=== PATIENT | female | born 1930 | race Asian ===

== ENCOUNTER 2016-03-14 11:09 | Emergency (ER) | payer OTHER ==
[2016-03-14 11:24] VITALS: BP 99/50; PULSE 81; TEMP 97.8; BMI 21.4
--- NOTE | 2016-03-14 12:30 | PDOC ---
History of Present Illness - General History Source: Patient Exam Limitations: No Limitations - History of Present Illness Initial Comments: 03/14/16 14:33 85 yr female with c/o ulcer to left ankle for 4 days. Pt saw PMD yesterday was given bactroban ointment. Pt here today states swelling to left ankle after falling 3 weeks ago. no fever or chills, pt has DM. <Melina Cabrera - Last Filed: 03/14/16 15:29> - History of Present Illness Initial Comments: 03/14/16 18:13 Malathi Tripathi LAW ENFORCEMENT DIRECTOR did not see this pt. <Malathi Tripathi - Last Filed: 03/14/16 18:13> - General Chief Complaint: Injury Stated Complaint: LT ANKLE INJURY Time Seen by Provider: 03/14/16 12:13 Past History <Melina Cabrera - Last Filed: 03/14/16 15:29> - Past Medical History Diabetes: Yes HTN: Yes Hypercholesterolemia: Yes - Surgical History Appendectomy: Yes - Psycho/Social/Smoking Cessation Hx Suicidal Ideation: No Smoking Status: No Smoking History: Never smoked Have you smoked in the past 12 months: No Number of Cigarettes Smoked Daily: 0 Hx Alcohol Use: No Drug/Substance Use Hx: No Substance Use Type: None Hx Substance Use Treatment: No <Malathi Tripathi - Last Filed: 03/14/16 18:13> - Past Medical History Allergies/Adverse Reactions: Allergies Allergy/AdvReac Type Severity Reaction Status Date / Time No Known Allergies Allergy Verified 03/14/16 11:24 Home Medications: Ambulatory Orders Alendronate Sodium [Fosamax Liquid] 70 mg PO Q7D #0 ml 04/19/12 Amlodipine Besylate [Norvasc -] 10 mg PO DAILY #0 tablet 04/19/12 Calcium Carbonate/Vitamin D3 [Calcium 600-Vit D3 200 Tablet] 1 each PO DAILY #0 tablet 04/19/12 Clopidogrel Bisulfate [Plavix -] 75 mg PO DAILY #0 tablet 04/19/12 Docusate Sodium [Colace -] 200 mg PO HS #0 capsule 04/19/12 Gabapentin [Neurontin -] 100 mg PO TID #0 capsule 04/19/12 Insulin (Novolog 70/30) [Novolog Mix 70/30 Flexpen -] 15 units SQ DAILY@1700 #0 pen 04/19/12 Insulin (Novolog 70/30) [Novolog Mix 70/30 Flexpen -] 45 units SQ DAILY@0700 #0 pen 04/19/12 Insulin (Novolog) [Novolog Flexpen -] 0 units SQ ACHS #0 pen 04/19/12 Losartan Potassium 100 mg PO DAILY #0 tablet 04/19/12 Metoclopramide HCl [Reglan] 10 mg PO AC #0 tablet 04/19/12 Simvastatin [Zocor -] 20 mg PO DAILY #0 tablet 04/19/12 Cephalexin Monohydrate [Keflex -] 250 mg PO Q6H #28 capsule 03/14/16 Sulfamethoxazole/Trimethoprim [Bactrim Ds Tablet] 1 each PO BID #14 tablet 03/14 *Physical Exam - Vital Signs Last Vital Signs Temp Pulse Resp BP Pulse Ox 97.8 F 81 20 99/50 97 03/14/16 11:20 03/14/16 11:20 03/14/16 11:20 03/14/16 11:20 03/14/16 11:20 - Physical Exam General Appearance: Yes: Nourished, Appropriately Dressed HEENT: positive: EOMI, ALVARO, TMs Normal, Pharynx Normal Neck: positive: Supple. negative: Tender Respiratory/Chest: positive: Lungs Clear, Normal Breath Sounds. negative: Chest Tender Cardiovascular: positive: Regular Rhythm, Regular Rate Musculoskeletal: positive: Normal Inspection Extremity: positive: Normal Capillary Refill, Normal Range of Motion, Tender Integumentary: positive: Normal Color, Dry, Warm, Other (left lateral maleoulus with 3cm circular abrasion, wound open no bleeding or drainage, mild surrounding erythema, no streaking up leg, nv intact FROM of the joint ) Neurologic: positive: Fully Oriented, Alert, Normal Mood/Affect, Normal Response , Motor Strength 5/5 <Melina Cabrera - Last Filed: 03/14/16 15:29> - Vital Signs Last Vital Signs Temp Pulse Resp BP Pulse Ox 97.8 F 81 20 99/50 97 03/14/16 11:20 03/14/16 11:20 03/14/16 11:20 03/14/16 11:20 03/14/16 11:20 <Malathi Tripathi - Last Filed: 03/14/16 18:13> Procedures - Laceration/Wound Repair Left Lateral Ankle Wound Length: to 2.5 cm Wound Explored: clean Wound's Depth, Shape: superficial Sterile Dressing Applied: Yes Progress: 03/14/16 15:32 circular wound approximately 3cm in diameter with yellow/white center no oozing or bleeding mild erythema <Melina Cabrera - Last Filed: 03/14/16 15:29> ED Treatment Course - RADIOLOGY Radiology Studies Ordered: Category Date Time Status ANKLE & FOOT-LEFT* [RAD] Stat Radiology 03/14/16 13:28 Completed <Melina Cabrera - Last Filed: 03/14/16 15:29> Medical Decision Making - Medical Decision Making 03/14/16 15:30 cc: fell 3 weeks ago mechanical fall injured left ankle caused abrasion to outside of ankle pt saw PMD yesterday for abrasion was placed on bactroban ointment today the foot and ankle are swollen, no redness, not warm or hot to touch will xray and place on keflex and bactrim follow up with primary care in 3 days follow up with wound care in 1-2 days, pt given the phone number to call to make arrangements, daughter understands and agrees with plan of care. all questions asked and answered before discharge. <Melina Cabrera - Last Filed: 03/14/16 15:29> *DC/Admit/Observation/Transfer <Melina Cabrera - Last Filed: 03/14/16 15:29> <Malathi Tripathi - Last Filed: 03/14/16 18:13> Diagnosis at time of Disposition: Ankle wound Qualifiers: Encounter type: initial encounter Laterality: left Qualified Code(s): S91.002A - Unspecified open wound, left ankle, initial encounter - Discharge Dispostion Disposition: HOME Condition at time of disposition: Good - Prescriptions Prescriptions: Sulfamethoxazole/Trimethoprim [Bactrim Ds Tablet] 1 each PO BID #14 tablet Cephalexin Monohydrate [Keflex -] 250 mg PO Q6H #28 capsule - Referrals Referrals: Rikki Servin [Primary Care Provider] - - Patient Instructions Additional Instructions: take keflex and bactrim as prescribed continue to apply the ointment as prescribed given to you by your doctor yesterday keep ankle and foot elevated keep the wound covered with non stick gauze follow with the wound care center for follow up in 1-2 days call tomorrow to make appointment [phone] follow with your doctor in 1-3 days for follow up return if any worsening symptoms, fever, chills increased redness or pain
== END 2016-03-14 14:43 | disposition home or self-care (01) ==
LOC: JERFT 11:09
DX: S91.002A Unspecified open wound, left ankle, initial encounter (principal); W18.30XA Fall on same level, unspecified, initial encounter; Y93.9 Activity, unspecified; Y92.9 Unspecified place or not applicable; E11.9 Type 2 diabetes mellitus without complications; I10 Essential (primary) hypertension; E78.00 Pure hypercholesterolemia, unspecified
CPT/HCPCS: 73610-TC-LT; 73630-TC-LT; 99281-25

== ENCOUNTER 2016-06-03 07:41 | Emergency (ER) | payer OTHER ==
[2016-06-03 07:46] VITALS: BMI 21.4
--- NOTE | 2016-06-03 08:25 | PDOC ---
History of Present Illness - General Chief Complaint: Pain Stated Complaint: STOMACH PAIN Time Seen by Provider: 06/03/16 07:54 History Source: Family Exam Limitations: Language Barrier - History of Present Illness Travel History: No Initial Comments: 06/03/16 08:56 85 yo F with PMHx of HTN, HLD, IDDM presents with 3 day history of abdominal pain. Her daughter is her historian. Daughter states that for past three days patient has been complaining of progressive worsening LLQ abdominal pain. She describes the pain as 6/10 pressure-like LLQ localized constant pain. Pain is made worse by movement and position with no alleviating factors. She had bowel movement yesterday which was normal in color/constistancy, no blood. No urinary symtoms. Denies history of diverticulitis, diverticulosis, or fmhx of colon ca. Denies fever, CP, CHONG, SOB, palpitations, N/V. Timing/Duration: reports: constant Quality: reports: moderate Abdominal Pain Onset Location: reports: LLQ Activities at Onset: reports: no specific activity Aggravating Factors: improves with: Movement Alleviating Factors: improves with: None Past History - Travel Traveled outside of the country in the last 30 days: No Close contact w/someone who was outside of country & ill: No - Past Medical History Allergies/Adverse Reactions: Allergies Allergy/AdvReac Type Severity Reaction Status Date / Time No Known Allergies Allergy Verified 06/03/16 07:46 Home Medications: Ambulatory Orders Amlodipine Besylate [Norvasc -] 10 mg PO DAILY 06/03/16 Calcium Carbonate/Vitamin D3 [Calcium 600 + Vit D Tablet] 1 each PO DAILY Clopidogrel Bisulfate [Clopidogrel] 75 mg PO DAILY 06/03/16 Famotidine [Pepcid -] 40 mg PO BID #14 tablet 06/03/16 Furosemide [Lasix] 20 mg PO DAILY 06/03/16 Losartan Potassium [Cozaar] 100 mg PO DAILY 06/03/16 Simvastatin [Zocor -] 20 mg PO HS 06/03/16 Diabetes: Yes HTN: Yes Hypercholesterolemia: Yes - Surgical History Appendectomy: Yes - Psycho/Social/Smoking Cessation Hx Anxiety: No Suicidal Ideation: No Smoking Status: No Smoking History: Never smoked Have you smoked in the past 12 months: No Number of Cigarettes Smoked Daily: 0 Hx Alcohol Use: No Drug/Substance Use Hx: No Substance Use Type: None Hx Substance Use Treatment: No Lives with/in: senior home Abd/GI Specific PMHX - Complaint Specific PMHX Colitis: No Diverticulitis: No Gall Bladder Disease: No GERD: No Hepatitis: No Irritable Bowel Synd (IBS): No Pancreatitis: No GI Ulcer Disease: No Review of Systems - Review of Systems Able to Perform ROS?: Yes Is the patient limited Burmese proficient: Yes Constitutional: Yes: Loss of Appetite HEENTM: No: Symptoms Reported Respiratory: No: Symptoms reported Cardiac (ROS): No: Symptoms Reported ABD/GI: Yes: Poor Appetite, Abdominal cramping : No: Symptoms Reported Musculoskeletal: No: Symptoms Reported Integumentary: No: Symptoms Reported Neurological: No: Symptoms reported *Physical Exam - Vital Signs Last Vital Signs Temp Pulse Resp BP Pulse Ox 97.6 F 95 H 20 183/83 97 06/03/16 07:42 06/03/16 07:42 06/03/16 07:42 06/03/16 07:42 06/03/16 07:42 - Physical Exam General Appearance: Yes: Thin HEENT: positive: ALVARO, Normal ENT Inspection Neck: positive: Supple Respiratory/Chest: positive: Lungs Clear, Normal Breath Sounds. negative: Respiratory Distress, Accessory Muscle Use Cardiovascular: positive: Regular Rhythm, Regular Rate Vascular Pulses: Dorsalis-Pedis (R): 2+, Doralis-Pedis (L): 2+ Gastrointestinal/Abdominal: positive: Normal Bowel Sounds, Flat, Soft, Tenderness (LLQ) ED Treatment Course - LABORATORY CBC & Chemistry Diagram: 06/03/16 08:24 06/03/16 08:24 Medical Decision Making - Medical Decision Making 06/03/16 09:15 85 yo F with PMHx of HTN, HLD, IDDM presents with 3 day history of abdominal pain. CT abdomen ordered with contrast. Initial labs sent CBC, CMP, lactic acid , and UA. BP elevated with restart home meds. *DC/Admit/Observation/Transfer Diagnosis at time of Disposition: LLQ abdominal pain - Discharge Dispostion Disposition: HOME Condition at time of disposition: Stable Admit: No - Prescriptions Prescriptions: Famotidine [Pepcid -] 40 mg PO BID #14 tablet - Patient Instructions Additional Instructions: Need to follow up with primary care doctor in next 7 days. Increase activity as tolerated. Low salt diet. Return to ED if symptoms return or worsen. Addendum entered and electronically signed by Jonathan Dunn RES 06/03/16 15: 06: Imaging: * Abdomen and pelvis CT without contrast Impression: No CT evidence of left lower quadrant pathology. In comparison to a previous CT exam of 04/16/2012 interval development of extrahepatic and intrahepatic biliary tract dilatation is noted as well as dilatation of the main pancreatic duct. There is probable development of mild enlargement of the pancreatic head. The gallbladder also currently appears overdistended. Possible interval development of cholelithiasis. There has been development of a small focus of curvilinear gallbladder wall calcification. Bilateral lower lung field chronic mosaic pattern interstitial thickening possibly due to small airway disease. Cardiomegaly. Reported By: Jarvis Rodriguez MD 06/03/16 1129 * US/ABDOMEN US -LIMITED Right upper quadrant abdomen ultrasound Clinical information: evaluate for cholelithiasis, CBD obstruction. No definite gallbladder calculus is seen. A small linear gallbladder wall calcification is noted laterally. A 0.6 cm gallbladder polyp is noted along the posterior wall. The gallbladder is overdistended. The common bile duct is dilated with a 2 cm diameter. No gross intraductal calculus is noted. Transabdominal sonography is moderately sensitive in this regard. The pancreas and right kidney could not be adequately visualized due to obscuring bowel gas. Liver demonstrates no sonographic abnormality. No free intraperitoneal fluid is noted. Impression: The pancreas is obscured due to bowel gas. Probable pancreatic enlargement was noted on recently performed CT. The common bile duct is dilated with a 2 cm diameter. Gallbladder overdistention is noted. A small linear gallbladder wall calcification is seen. There is no definite evidence of cholelithiasis. A 0.6 cm gallbladder polyp is noted. Reported By: Jarvis Rodriguez MD 06/03/16 2067 Plan: * No acute pathology * Will give 14 day course of Pepcid and instructed to follow up with PCP in one week.
[2016-06-03 08:37] LABS: BASOPHIL 0.7 % (0-2.0); EOSINOPHIL 1.2 % (0-4.5); MCH 29.7 pg (25.7-33.7); MCHC 32.4 g/dl (32.0-36.0); MEAN CELL VOLUME 91.6 fl (80-96); MEAN PLT VOLUME 10.5 fl (7.5-11.1); NEUTROPHILS 70.5 % (42.8-82.8); PLATELET COUNT 114 K/MM3 (134-434); RDW 13.8 % (11.6-15.6); WHITE BLOOD COUNT 6.9 K/mm3 (4.0-10.0)
[2016-06-03 09:01] LABS: ALBUMIN 3.6 g/dl (3.4-5.0); ANION GAP 10 (8-16); BILIRUBIN,TOTAL 0.6 mg/dL (0.2-1.0); CALCIUM 8.4 mg/dL (8.5-10.1); CO2 24 mmol/L (21-32); CREATININE 1.5 mg/dL (0.55-1.02); GLUCOSE,RANDOM 226 mg/dL (74-106); SGOT/AST 20 U/L (15-37); SGPT/ALT 25 U/L (12-78); TOT PROT 6.8 g/dl (6.4-8.2)
[2016-06-03 09:02] LABS: ALK PHOS 77 U/L (45-117)
[2016-06-03] MEDS ORDERED: amLODIPine BESYLATE 10 MG TABLET (FP) PO ONE (09:12)
[2016-06-03] MEDS ORDERED: LOSARTAN POTASSIUM 50 MG TABLET (FP) PO ONE (09:13)
[2016-06-03] MEDS ORDERED: CLOPIDOGREL BISULFATE 75 MG TABLET (FP) PO ONE (09:13)
[2016-06-03] MEDS ORDERED: FUROSEMIDE 20 MG TABLET (FP) PO ONE (09:13)
[2016-06-03] MEDS ORDERED: CLOPIDOGREL BISULFATE 75 MG TABLET (FP) PO SCH (09:15)
[2016-06-03] MEDS ORDERED: FUROSEMIDE 20 MG TABLET (FP) PO SCH (09:15)
[2016-06-03] MEDS ORDERED: amLODIPine BESYLATE 10 MG TABLET (FP) PO SCH (09:15)
[2016-06-03] MEDS ORDERED: PATIENT'S OWN MEDICATION (NON-FORMULARY) (Losartan Potassium [Cozaar] 100 MG) PO SCH (09:15)
[2016-06-03] MEDS ORDERED: SODIUM CHLORIDE 1,000 ML IV STA (09:28)
--- NOTE | 2016-06-03 09:30 | PDOC ---
Attending Attestation - Resident Resident Name: Jonathan Dunn - ED Attending Attestation I have performed the following: I have examined & evaluated the patient, The case was reviewed & discussed with the resident, I agree w/resident's findings & plan, Exceptions are as noted - HPI HPI: 06/03/16 09:29 Agree with the resident's HPI as documented in the electronic medical record. - Physicial Exam PE: 06/03/16 09:29 Agree with the resident's physical examination as documented in the electronic medical record. - Medical Decision Making 06/03/16 09:29 85-year-old female with history of hypertension and diabetes presents to the emergency department with left lower quadrant pain 3 days and decrease in by mouth intake. Differential diagnosis includes but is not limited to: Diverticulosis/diverticulitis, UTI, early pyelonephritis, renal colic, colonic mass, MANAGER PROCESS EXCELLENCE pathology, dehydration, electrolyte abnormality, toxic/metabolic derangement. Plan: 1. Labs 2. IV fluids for hydration 3. Pain management 4. Antiemetics 5. CT scan of the abdomen and pelvis to rule out above pathology 6. Observe and reevaluate
[2016-06-03] MEDS ORDERED: FUROSEMIDE 40 MG TABLET (FP) ONE (10:07)
[2016-06-03] MEDS ORDERED: amLODIPine BESYLATE 5 MG TABLET (FP) ONE (10:07)
[2016-06-03] MEDS ORDERED: CLOPIDOGREL BISULFATE 75 MG TABLET (FP) ONE (10:08)
[2016-06-03] MEDS ORDERED: LOSARTAN POTASSIUM 25 MG TABLET ONE (10:08)
[2016-06-03 11:54] LABS: URINE APPEARANCE CLEAR; URINE BILIRUBIN NEGATIVE (NEGATIVE); URINE BLOOD NEGATIVE (NEGATIVE); URINE COLOR STRAW; URINE GLUCOSE (UA) 2+ (NEGATIVE); URINE KETONE 1+ (NEGATIVE); URINE LEUK ESTERASE NEGATIVE (NEGATIVE); URINE NITRITE NEGATIVE (NEGATIVE); URINE UROBILINOGEN NEGATIVE E.U./dl (0.2-1.0)
[2016-06-03 11:55] LABS: URINE PROTEIN 2+ (NEGATIVE)
[2016-06-03 11:57] LABS: URINE HYALINE CAST 1 /lpf; URINE RBC <1 /hpf (0-3); URINE WBC 1 /hpf (3-5)
[2016-06-03 12:24] VITALS: TEMP 98.5
[2016-06-03 14:18] LABS: TROPONIN I < 0.02 ng/ml (0.00-0.05)
[2016-06-03 15:27] VITALS: BP 152/74; PULSE 68
--- NOTE | 2016-06-03 17:15 | EKG ---
Test Reason : Blood Pressure : / mmHG Vent. Rate : 083 BPM Atrial Rate : 083 BPM P-R Int : 142 ms QRS Dur : 090 ms QT Int : 392 ms P-R-T Axes : 060 -13 052 degrees QTc Int : 460 ms NORMAL SINUS RHYTHM POSSIBLE LEFT ATRIAL ENLARGEMENT LEFT VENTRICULAR HYPERTROPHY CANNOT RULE OUT SEPTAL INFARCT , AGE UNDETERMINED ABNORMAL ECG WHEN COMPARED WITH ECG OF 17-APR-2012 00:33, MINIMAL CRITERIA FOR SEPTAL INFARCT ARE NOW PRESENT NONSPECIFIC T WAVE ABNORMALITY HAS REPLACED INVERTED T WAVES IN ANTEROLATERAL LEADS Confirmed by KATHY COY MD ([id number]) on 06/03/2016 5:15:12 PM Referred By: Confirmed By:KATHY COY MD
[2016-06-03] MEDS ORDERED: PATIENT'S OWN MEDICATION (NON-FORMULARY) (Simvastatin 20 MG) PO SCH (22:00)
== END 2016-06-03 15:28 | disposition home or self-care (01) ==
LOC: JER 07:41
DX: R10.32 Left lower quadrant pain (principal); I10 Essential (primary) hypertension; E11.9 Type 2 diabetes mellitus without complications; Z79.84 Long term (current) use of oral hypoglycemic drugs; E78.00 Pure hypercholesterolemia, unspecified
CPT/HCPCS: 36415; 74020-TC; 74176-TC; 76705-TC; 80053; 81003; 81015; 83690; 84484; 85025; 93005; 93010; 99282-25

== ENCOUNTER 2016-06-21 14:41 | Inpatient (IN) | payer OTHER ==
[2016-06-21 14:53] VITALS: BMI 23.4
--- NOTE | 2016-06-21 17:06 | PDOC ---
History of Present Illness - General History Source: Patient, Family (Daughter), Old Records Exam Limitations: No Limitations - History of Present Illness Initial Comments: 06/21/16 17:44 The patient is an 85 year old female, with a significant past medical history of hypertension, hyperlipidemia, diabetes and osteoporosis, who presents to the emergency department sent by her PCP (Dr. Rikki Servin) with weakness for the past 3 days. The patients daughter is at the bedside. She states that the patient was seen by her PCP earlier today and was sent to the ED for further evaluation to rule out pneumonia. The patients daughter states that the patient has had nasal congestion in addition to a productive cough for the past 3 days. The patient additionally reports chest discomfort, particularly when she coughs. The patient denies shortness of breath. The patient denies fever, chills, nausea , vomiting, diarrhea or dysuria. Allergies: None reported. Past Surgical History: Appendectomy. Social History: Non smoker. Denies alcohol or drug use. PCP: Dr. Rikki Servin <Breanna Long - Last Filed: 06/21/16 21:27> <Rony Barajas - Last Filed: 06/21/16 23:05> - General Chief Complaint: Weakness Stated Complaint: SENT BY PCP/WEAKNESS Time Seen by Provider: 06/21/16 16:56 Past History <Breanna Long - Last Filed: 06/21/16 21:27> - Past Medical History Diabetes: Yes HTN: Yes Hypercholesterolemia: Yes - Surgical History Appendectomy: Yes - Psycho/Social/Smoking Cessation Hx Anxiety: No Suicidal Ideation: No Smoking Status: No Smoking History: Never smoked Have you smoked in the past 12 months: No Number of Cigarettes Smoked Daily: 0 Information on smoking cessation initiated: No Hx Alcohol Use: No Drug/Substance Use Hx: No Substance Use Type: None Hx Substance Use Treatment: No <Rony Barajas - Last Filed: 06/21/16 23:05> - Past Medical History Allergies/Adverse Reactions: Allergies Allergy/AdvReac Type Severity Reaction Status Date / Time No Known Allergies Allergy Verified 06/21/16 14:51 Home Medications: Ambulatory Orders Amlodipine Besylate [Norvasc -] 10 mg PO DAILY 06/03/16 Calcium Carbonate/Vitamin D3 [Calcium 600 + Vit D Tablet] 1 each PO DAILY Clopidogrel Bisulfate [Clopidogrel] 75 mg PO DAILY 06/03/16 Famotidine [Pepcid -] 40 mg PO BID #14 tablet 06/03/16 Furosemide [Lasix] 20 mg PO DAILY 06/03/16 Losartan Potassium [Cozaar] 100 mg PO DAILY 06/03/16 Simvastatin [Zocor -] 20 mg PO HS 06/03/16 Alendronate Sodium [Binosto] 70 mg PO ASDIR 06/21/16 Ciprofloxacin [Cipro (Restricted To Id)] 250 mg PO ASDIR 06/21/16 Ferrous Sulfate 325 mg PO DAILY 06/21/16 Gabapentin [Neurontin -] 100 mg PO ASDIR 06/21/16 Guaifenesin/D-Methorphan Hb [Diabetic Tussin Dm Liquid] 0 ml PO ASDIR 06/21/16 Lubiprostone [Amitiza] 8 mcg PO ASDIR 06/21/16 Mometasone Furoate 0.1% Tp Oin [Elocon (Non Formulary)] 0 gm NR ASDIR 06/21/16 Review of Systems - Review of Systems Able to Perform ROS?: Yes Comments:: 06/21/16 17:32 CONSTITUTIONAL: +Weakness. No fever, no chills, no fatigue EYES: No visual changes ENT: +Nasal congestion. No ear pain, no sore throat CARDIOVASCULAR: +Chest discomfort. No palpitations RESPIRATORY: +Cough. No SOB GI: No abdominal pain, no nausea, no vomiting, no constipation, no diarrhea GENITOURINARY: No dysuria, no frequency, no hematuria MUSKULOSKELETAL: No back pain, no joint pain, no myalgias SKIN: No rash NEURO: No headache <GoodhueBreanna vale - Last Filed: 06/21/16 21:27> *Physical Exam - Vital Signs Last Vital Signs Temp Pulse Resp BP Pulse Ox 98.2 F 87 16 143/53 94 L 06/21/16 14:51 06/21/16 14:51 06/21/16 14:51 06/21/16 14:51 06/21/16 14:51 - Physical Exam Comments: 06/21/16 17:31 CONSTITUTIONAL: Awake, alert, frail appearing; in no apparent distress. HEAD: Normocephalic; atraumatic. EYES: PERRL; EOM intact. ENMT: External appears normal; normal oropharynx. NECK: Supple; non-tender; no cervical lymphadenopathy. CARD: Normal S1, S2; no murmurs, rubs, or gallops. RESP: Normal chest excursion with respiration; Crackles at the bases bilaterally , left greater than right. ABD: Soft, non-distended; non-tender; no palpable organomegaly, no palpable hernias. EXT: Normal ROM in all four extremities; non-tender to palpation; distal pulses intact. SKIN: Warm, dry, no rash. NEURO: No focal neurological deficiencies. Normal speech, normal gait. <Breanna Long - Last Filed: 06/21/16 21:27> - Vital Signs Last Vital Signs Temp Pulse Resp BP Pulse Ox 98.2 F 87 16 143/53 94 L 06/21/16 14:51 06/21/16 14:51 06/21/16 14:51 06/21/16 14:51 06/21/16 14:51 <Rony Barajas - Last Filed: 06/21/16 23:05> Heart Score/ECG Review #1 ECG reviewed & interpreted by me at: 17:58 (Vent Rate: 85 bpm. Normal sinus rhythm. Possible left atrial enlargement. Left axis deviation. Right bundle branch block. Left ventricular hypertrophy. Cannot rule out septal infarct, age undetermined. ) <Breanna Long - Last Filed: 06/21/16 21:27> ED Treatment Course - LABORATORY CBC & Chemistry Diagram: 06/21/16 18:25 06/21/16 18:25 <Breanna Long - Last Filed: 06/21/16 21:27> - LABORATORY CBC & Chemistry Diagram: 06/21/16 18:25 06/21/16 22:10 <Rony Barajas - Last Filed: 06/21/16 23:05> Medical Decision Making - Medical Decision Making 06/21/16 19:54 EXAM: RAD/CHEST X-RAY PORTABLE Reviewed By: Dr. Otis Mullins IMPRESSION: No significant interval change or acute lung disease is present. <Breanna Long - Last Filed: 06/21/16 21:27> - Critical Care Time Total Critical Care Time (minutes): 50 Critical Care Statement: The care of this patient involved high complexity decision making to prevent further life threatening deterioration of the patient 's condition and/or to evalute & treat vital organ system(s) failure or risk of failure. - Medical Decision Making 06/21/16 21:02 Patient is a frail-appearing 85-year-old female with history of diabetes and hypertension who presented with generalized weakness, malaise, and a course productive cough for the past 2-3 days. In the ER, patient is awake and alert, afebrile, with oxygen saturation of 91-93% on room air requiring oxygen supplementation via nasal cannula at 2 L/m. CBC reveals mild leukocytosis with predominance of neutrophils. C CMP reveals elevated blood glucose of 460, sodium bicarbonate of 20 and mildly increased anion gap 15. PH is noted to be 7.3. Patient's symptoms are consistent with mild DKA. Chest x-ray reveals no evidence of infiltrate or effusion. I suspect atypical pneumonia at this time. Blood cultures been obtained. We'll administer Levaquin-500 mg IV. Patient has also received IV fluids and will be started on an insolent drip. Will admit to the ICU further evaluation and treatment. 06/21/16 23:03 Patient reassessed. Patient remains hemodynamically stable, but does require supplemental O2 at 2 L via nasal cannula to maintain oxygen saturation of 98-99% . Patient desaturated to 93% on room air. Repeat CMP reveals resolution of increased anion gap, decreased blood glucose and elevated sodium bicarbonate. At this time, I believe insolent drip can be stopped patient can be admitted to [facility] for further evaluation and treatment. Patient's acidosis appears to have resolved. <Rony Barajas - Last Filed: 06/21/16 23:05> *DC/Admit/Observation/Transfer - Attestations Scribe Attestion: 06/21/16 17:10 Documentation prepared by Breanna Long, acting as er medical technician for Rony Barajas MD. <Breanna Long - Last Filed: 06/21/16 21:27> - Discharge Dispostion Admit: Yes - Attestations Physician Attestion: 06/21/16 21:01 The documentation was prepared by the scribe under my direct supervision. I have reviewed the documentation which correctly represents the findings, medical decision-making and critical action taken by me. <Rony Barajas - Last Filed: 06/21/16 23:05> Diagnosis at time of Disposition: Atypical pneumonia Diabetic ketoacidosis Qualifiers: Diabetes mellitus type: due to underlying condition Diabetes mellitus complication detail: without coma Qualified Code(s): E08.10 - Diabetes mellitus due to underlying condition with ketoacidosis without coma - Discharge Dispostion Condition at time of disposition: Fair - Referrals Referrals: Rikki Servin [Primary Care Provider] -
[2016-06-21] MEDS ORDERED: SODIUM CHLORIDE 0.9% 1000 ML INFUS.BAG IV ONE (18:03)
[2016-06-21 18:57] LABS: BASOPHIL 0.2 % (0-2.0); EOSINOPHIL 0.1 % (0-4.5); MCH 28.8 pg (25.7-33.7); MCHC 31.9 g/dl (32.0-36.0); MEAN CELL VOLUME 90.5 fl (80-96); MEAN PLT VOLUME 11.2 fl (7.5-11.1); NEUTROPHILS 83.4 % (42.8-82.8); PLATELET COUNT 184 K/MM3 (134-434); RDW 13.8 % (11.6-15.6); WHITE BLOOD COUNT 12.5 K/mm3 (4.0-10.0)
[2016-06-21 19:13] LABS: ALBUMIN 2.9 g/dl (3.4-5.0); ANION GAP 15 (8-16); CALCIUM 8.9 mg/dL (8.5-10.1); CO2 20 mmol/L (21-32); CREATININE 1.6 mg/dL (0.55-1.02); SGOT/AST 10 U/L (15-37); SGPT/ALT 20 U/L (12-78)
[2016-06-21 19:18] LABS: ALK PHOS 140 U/L (45-117); BILIRUBIN,TOTAL 0.6 mg/dL (0.2-1.0); TOT PROT 6.8 g/dl (6.4-8.2)
[2016-06-21 19:36] LABS: GLUCOSE,RANDOM 453 mg/dL (74-106); TROPONIN I < 0.02 ng/ml (0.00-0.05)
[2016-06-21] MEDS ORDERED: SODIUM CHLORIDE 500 ML IV STA (19:40)
[2016-06-21] MEDS ORDERED: LEVOFLOXACIN 500 MG TABLET (FP) PO ONE (19:44)
[2016-06-21 20:08] LABS: INR 1.03 (0.82-1.09); PROTHROMBIN TIME (PATIENT) 11.3 SEC (9.98-11.88)
[2016-06-21] MEDS ORDERED: ALBUTEROL SO4 2.5/IPRATROPIUM 0.5 INH SOL 3 ML VIAL.NEB. NEB ONE (20:23)
[2016-06-21] MEDS ORDERED: LEVOFLOXACIN 500 MG TABLET (FP) ONE (20:40)
[2016-06-21] MEDS ORDERED: INSULIN REGULAR HUMAN 100 UNITS/ML *VIAL IVPUSH ONE (20:42)
[2016-06-21 20:43] LABS: VENOUS BLOOD GAS HCO3 19.2 meq/L (19-25); VENOUS PH 7.3 (7.32-7.42)
[2016-06-21] MEDS ORDERED: INSULIN REGULAR HUMAN 100 UNITS/ML *VIAL ONE ×2 (20:47→21:42)
[2016-06-21] MEDS ORDERED: INSULIN REGULAR 100 UNITS in SODIUM CHLORIDE 99 ML IVPB SCH (21:15)
--- NOTE | 2016-06-21 21:32 | PN ---
<Damián Barajas - Last Filed: 06/21/16 21:32> Teaching Attending Note Name of Resident: Kali Gaspar ATTENDING PHYSICIAN STATEMENT I saw and evaluated the patient. I reviewed the resident's note and discussed the case with the resident. I agree with the resident's findings and plan as documented. SUBJECTIVE: OBJECTIVE: ASSESSMENT AND PLAN: <Lennie Goodehel - Last Filed: 06/21/16 23:46> Teaching Attending Note ATTENDING PHYSICIAN STATEMENT I saw and evaluated the patient. I reviewed the resident's note and discussed the case with the resident. I agree with the resident's findings and plan as documented. SUBJECTIVE: The patient is a 85 year old female, with a significant past medical history of HTN, HLD, Diabetes and osteoporosis, who presents with weakness. Patient was evaluated by PCP and was sent in to r/o PNA. Patient also has productive cough and nasal congestion for the past 3 days. Patient denies fever or chills. OBJECTIVE: Last Vital Signs Temp Pulse Resp BP Pulse Ox 98.2 F 87 16 143/53 97 06/21/16 14:51 06/21/16 14:51 06/21/16 14:51 06/21/16 14:51 06/21/16 17:20 GEN: Elderly female resting in bed. NAD. HEENT: NCAT, PERRL CARD: RRR, S1 S2 RESP: CTAB ABD: NT, BWS x4 EXT: - CCE CBCD WBC 12.5 K/mm3 (4.0-10.0) H D 06/21/16 18:25 RBC 3.39 M/mm3 (3.60-5.2) L 06/21/16 18:25 Hgb 9.8 GM/dL (10.7-15.3) L 06/21/16 18:25 Hct 30.7 % (32.4-45.2) L 06/21/16 18:25 MCV 90.5 fl (80-96) 06/21/16 18:25 MCHC 31.9 g/dl (32.0-36.0) L 06/21/16 18:25 RDW 13.8 % (11.6-15.6) 06/21/16 18:25 Plt Count 184 K/MM3 (134-434) D 06/21/16 18:25 MPV 11.2 fl (7.5-11.1) H 06/21/16 18:25 CMP Sodium 131 mmol/L (136-145) L 06/21/16 18:25 Potassium 5.2 mmol/L (3.5-5.1) H 06/21/16 18:25 Chloride 96 mmol/L (98-107) L D 06/21/16 18:25 Carbon Dioxide 20 mmol/L (21-32) L 06/21/16 18:25 Anion Gap 15 (8-16) 06/21/16 18:25 BUN 41 mg/dL (7-18) H 06/21/16 18:25 Creatinine 1.6 mg/dL (0.55-1.02) H 06/21/16 18:25 Creat Clearance w eGFR 30.49 (>60) 06/21/16 18:25 Calcium 8.9 mg/dL (8.5-10.1) 06/21/16 18:25 Total Bilirubin 0.6 mg/dL (0.2-1.0) 06/21/16 18:25 AST 10 U/L (15-37) L D 06/21/16 18:25 ALT 20 U/L (12-78) 06/21/16 18:25 Alkaline Phosphatase 140 U/L (45-117) H D 06/21/16 18:25 Total Protein 6.8 g/dl (6.4-8.2) 06/21/16 18:25 Albumin 2.9 g/dl (3.4-5.0) L 06/21/16 18:25 Imaging: CXR Impression: No significant interval change or acute lung disease is present ASSESSMENT AND PLAN: The patient is a 85 year old female, with a significant past medical history of HTN, HLD, Diabetes and osteoporosis, who presents with weakness and is being admitted for atypical PNA and uncontrolled diabetes. 1.) Atypical PNA Check urine antigens Continue with levaquin Follow up blood cultures Flu is negative 2.)Early DKA Resolved Continue with RAISS Monitor fingersticks Repeat BMP Repeat hemoglobin A1C Monitor potassium-- replete as necessary 3.)CKD Baseline creatinine 1.4 Avoid nephrotoxins 4.)Mild Hypoxia Resolved Wells score 0 D dimer elevation most likely due to infection. 5.) HTN Continue home medications 5.) DVT PPx - Heparin SQ 5,000 units Documentation prepared by Jasmin Goode, acting as medical sociologist for Damián Barajas MD.
--- NOTE | 2016-06-21 21:44 | HP ---
CHIEF COMPLAINT: Productive cough PCP: Rikki Servin ([facility]) HISTORY OF PRESENT ILLNESS: Patient is a 85 year old female with PMH of HTN, HLD, DM & osteoporosis who presents to ED from PCP's office for productive cough. Patient's daughter is at bedside and contributes to history. Patient has had a productive cough for a little under 1 week. She also has had nasal congestion & general lethargy during the same time frame. Lethargy has been most notable for the last 3 days. Cough is productive of white sputum. She also notes some mild chest wall tenderness on her left side during heavy cough fits. The pain is reproducible by palpation and only present when coughing or taking a deep breath. Patient takes insulin daily for diabetes but has not taken her insulin today (and daughter is unsure if mother took it yesterday as well). Patient denies fever, chills, dysuria, palpitations, CHONG, visual changes or mental status changes. ER course was notable for: (1) Glucose 450, AG 15, Hyperkalemia 5.3 with mild decrease in Bicarb to 20 (2) CXR (-) for acute changes (3) Levaquin given in ED & Insulin drip started as well Recent Travel: none noted PAST MEDICAL HISTORY: as above PAST SURGICAL HISTORY: appendectomy (unsure about when) Social History: Smoking:NONE NOTED Alcohol:NONE NOTED Drugs:NONE NOTED Family History: NONCONTRIBUTORY Allergies No Known Allergies Allergy (Verified 06/21/16 14:51) HOME MEDICATIONS: Home Medications Medication Instructions Recorded Amlodipine Besylate [Norvasc -] 10 mg PO DAILY 06/03/16 Calcium Carbonate/Vitamin D3 1 each PO DAILY 06/03/16 [Calcium 600 + Vit D Tablet] Clopidogrel Bisulfate [Clopidogrel] 75 mg PO DAILY 06/03/16 Famotidine [Pepcid -] 40 mg PO BID #14 tablet 06/03/16 Furosemide [Lasix] 20 mg PO DAILY 06/03/16 Losartan Potassium [Cozaar] 100 mg PO DAILY 06/03/16 Simvastatin [Zocor -] 20 mg PO HS 06/03/16 Alendronate Sodium [Binosto] 70 mg PO ASDIR 06/21/16 Ciprofloxacin [Cipro (Restricted 250 mg PO ASDIR 06/21/16 To Id)] Ferrous Sulfate 325 mg PO DAILY 06/21/16 Gabapentin [Neurontin -] 100 mg PO ASDIR 06/21/16 Guaifenesin/D-Methorphan Hb 0 ml PO ASDIR 06/21/16 [Diabetic Tussin Dm Liquid] Lubiprostone [Amitiza] 8 mcg PO ASDIR 06/21/16 Mometasone Furoate 0.1% Tp Oin 0 gm NR ASDIR 06/21/16 [Elocon (Non Formulary)] REVIEW OF SYSTEMS CONSTITUTIONAL: (+)malaise, Absent: fever, chills, diaphoresis, generalized weakness, loss of appetite, weight change HEENT: (+)nasal congestion, Absent: rhinorrhea, throat pain, throat swelling, difficulty swallowing, mouth swelling, ear pain, eye pain, visual changes CARDIOVASCULAR: Absent: chest pain, syncope, palpitations, irregular heart rate, lightheadedness , peripheral edema RESPIRATORY: (+)cough, Absent: shortness of breath, dyspnea with exertion, orthopnea, wheezing, stridor , hemoptysis GASTROINTESTINAL: Absent: abdominal pain, abdominal distension, nausea, vomiting, diarrhea, constipation, melena, hematochezia GENITOURINARY: Absent: dysuria, frequency, urgency, hesitancy, hematuria, flank pain, genital pain MUSCULOSKELETAL: Absent: myalgia, arthralgia, joint swelling, back pain, neck pain SKIN: Absent: rash, itching, pallor HEMATOLOGIC/IMMUNOLOGIC: Absent: easy bleeding, easy bruising, lymphadenopathy, frequent infections ENDOCRINE: Absent: unexplained weight gain, unexplained weight loss, heat intolerance, cold intolerance NEUROLOGIC: Absent: headache, focal weakness or paresthesias, dizziness, unsteady gait, seizure, mental status changes, bladder or bowel incontinence PSYCHIATRIC: Absent: anxiety, depression, suicidal or homicidal ideation, hallucinations. PHYSICAL EXAMINATION Vital Signs - 24 hr 06/21/16 06/21/16 14:51 17:20 Temperature 98.2 F Pulse Rate 87 Respiratory 16 Rate Blood Pressure 143/53 O2 Sat by Pulse 94 L 97 Oximetry (%) GENERAL: Awake, alert, and fully oriented, in no acute distress. HEENT: Atraumatic, EOMI, PERRLA, No pharyngeal exudate, no lymphadenopathy noted , moist membranes LUNGS: mild bibasilar crackles noted HEART: Regular rate and rhythm, normal S1 and S2 without murmur, rub or gallop. ABDOMEN: Soft, nontender, not distended, normoactive bowel sounds MUSCULOSKELETAL: Normal range of motion at all joints. No bony deformities or tenderness. No CVA tenderness. UPPER EXTREMITIES: 2+ pulses, warm, well-perfused. No cyanosis. No clubbing. No peripheral edema. LOWER EXTREMITIES: 2+ pulses, warm, well-perfused. No calf tenderness. No peripheral edema. NEUROLOGICAL: Cranial nerves II-XII intact. Normal speech. Normal gait. PSYCHIATRIC: Cooperative. Good eye contact. Appropriate mood and affect. SKIN: Warm, dry, normal turgor, no rashes or lesions noted, normal capillary refill. Laboratory Results - last 24 hr 06/21/16 06/21/16 06/21/16 18:25 18:25 18:25 WBC 12.5 H D RBC 3.39 L Hgb 9.8 L Hct 30.7 L MCV 90.5 MCHC 31.9 L RDW 13.8 Plt Count 184 D MPV 11.2 H Neutrophils % 83.4 H Lymphocytes % 10.2 D Monocytes % 6.1 Eosinophils % 0.1 D Basophils % 0.2 INR 1.03 D-Dimer VBG pH POC VBG pCO2 POC VBG pO2 Mixed VBG HCO3 Sodium 131 L Potassium 5.2 H Chloride 96 L D Carbon Dioxide 20 L Anion Gap 15 BUN 41 H Creatinine 1.6 H Creat Clearance w eGFR 30.49 Random Glucose 453 H* D Calcium 8.9 Total Bilirubin 0.6 AST 10 L D ALT 20 Alkaline Phosphatase 140 H D Creatine Kinase 42 Troponin I < 0.02 Total Protein 6.8 Albumin 2.9 L Acetone, Qual 06/21/16 06/21/16 06/21/16 18:25 20:11 20:40 WBC RBC Hgb Hct MCV MCHC RDW Plt Count MPV Neutrophils % Lymphocytes % Monocytes % Eosinophils % Basophils % INR D-Dimer 597 H VBG pH 7.30 L POC VBG pCO2 40.3 POC VBG pO2 33.7 Mixed VBG HCO3 19.2 Sodium Potassium Chloride Carbon Dioxide Anion Gap BUN Creatinine Creat Clearance w eGFR Random Glucose Calcium Total Bilirubin AST ALT Alkaline Phosphatase Creatine Kinase Troponin I Total Protein Albumin Acetone, Qual Positive small 1+ H ASSESSMENT/PLAN: 85 year old female with PMH of HTN, HLD, DM & osteoporosis who presents to ED from PCP's office for productive cough. #Atypical Pneumonia -Levaquin started in ED -CXR reviewed, f/u in AM -Cultures sent & pending -urine antigens for pneumonia pending -saturating well on 2liter NC, Keep O2 sat >91% -Donya QIDR #Mild, developing DKA, no Anion gap -Insulin given in ED, no anion gap, normal bicarb afterwards -will start on sliding sale insulin coverage -IVF NS@60cc/hr -Potassium 5.2, will f/u with serial BMP and supplement as needed -ABG in AM -start diabetic diet in AM (if FS too low, can consider D5-NS) #Acute on chronic kidney disease -creatinine 1.6 initially, down to 1.3 after 500cc fluid resuscitation -dehydration is likely etiology (baseline is 1.3-1.5) -continue to trend -avoid nephrotoxic meds #HTN -continue home meds:Norvasc 10 mg PO DAILY, Lipitor 10 mg PO HS, Plavix 75 mg PO DAILY, Lasix 20 mg PO DAILY, Cozaar 100 mg PO DAILY Prophylaxis/FEN -Heparin 5000 BID -Zantac -NPO for now, diabetic diet in AM -Monitor electolytes -IVF hydration as above Visit type - Emergency Visit Emergency Visit: Yes ED Registration Date: 06/21/16 Care time: The patient presented to the Emergency Department on the above date and was hospitalized for further evaluation of their emergent condition. - New Patient This patient is new to me today: Yes Date on this admission: 06/22/16 - Critical Care Critical Care patient: No
[2016-06-21 22:52] LABS: ALBUMIN 2.5 g/dl (3.4-5.0); BILIRUBIN,TOTAL 0.5 mg/dL (0.2-1.0); CALCIUM 7.8 mg/dL (8.5-10.1); COCKROFT - GAULT 26.197; CREATININE 1.3 mg/dL (0.55-1.02); TOT PROT 5.7 g/dl (6.4-8.2)
[2016-06-21] MEDS ORDERED: SODIUM CHLORIDE 1,000 ML IV SCH (23:15)
[2016-06-22] MEDS: ALBUTEROL SO4 2.5/IPRATROPIUM 0.5 INH SOL 3 ML VIAL.NEB. NEB SCH ×3 (00:13→18:09)
[2016-06-22 00:52] LABS: URINE APPEARANCE CLEAR; URINE BILIRUBIN NEGATIVE (NEGATIVE); URINE COLOR STRAW; URINE GLUCOSE (UA) 3+ (NEGATIVE); URINE KETONE TRACE (NEGATIVE); URINE NITRITE NEGATIVE (NEGATIVE); URINE UROBILINOGEN NEGATIVE E.U./dl (0.2-1.0)
[2016-06-22 00:57] LABS: URINE BLOOD 1+ (NEGATIVE); URINE LEUK ESTERASE TRACE (NEGATIVE); URINE PROTEIN 2+ (NEGATIVE)
[2016-06-22 01:12] LABS: URINE BACTERIA RARE /hpf (NONE SEEN); URINE HYALINE CAST 1 /lpf; URINE MUCUS RARE; URINE RBC 2 /hpf (0-3); URINE WBC 15 /hpf (3-5)
[2016-06-22] MEDS: INSULIN SLIDING SCALE (NOVOLOG) 1 VIAL SQ SCH ×4 (06:37→22:24)
[2016-06-22 07:54] LABS: MCH 29.6 pg (25.7-33.7); MCHC 32.9 g/dl (32.0-36.0); MEAN CELL VOLUME 90.1 fl (80-96); PLATELET COUNT 137 K/MM3 (134-434); RDW 13.8 % (11.6-15.6); WHITE BLOOD COUNT 10.1 K/mm3 (4.0-10.0)
[2016-06-22] MEDS ORDERED: LEVOFLOXACIN 500 MG IVPB 100 ML IVPB ONE (08:00)
[2016-06-22 08:39] LABS: ANION GAP 13 (8-16); CALCIUM 7.9 mg/dL (8.5-10.1); CO2 18 mmol/L (21-32); CREATININE 1.1 mg/dL (0.55-1.02); GLUCOSE,RANDOM 252 mg/dL (74-106); MAGNESIUM 2.1 mg/dL (1.8-2.4); PHOSPHOROUS 2.6 mg/dL (2.5-4.9); TROPONIN I < 0.02 ng/ml (0.00-0.05)
[2016-06-22] MEDS: CLOPIDOGREL BISULFATE 75 MG TABLET (FP) PO SCH (09:45)
[2016-06-22] MEDS: CALCIUM 500MG/VIT-D 200 UNITS COMBO TABLET (FP) PO SCH (09:45)
[2016-06-22] MEDS: amLODIPine BESYLATE 10 MG TABLET (FP) PO SCH (09:45)
[2016-06-22] MEDS: FUROSEMIDE 20 MG TABLET (FP) PO SCH (09:45)
[2016-06-22] MEDS: LOSARTAN POTASSIUM 50 MG TABLET (FP) PO SCH (09:45)
[2016-06-22] MEDS: FERROUS SO4 325 MG TABLET (FP) PO SCH (09:45)
[2016-06-22] MEDS: RANITIDINE HCL 150 MG TABLET (FP) PO SCH (09:45)
[2016-06-22] MEDS: HEPARIN NA (PORCINE) 5,000 UNITS/ML 1ML VIAL SQ SCH ×2 (09:46→22:23)
--- NOTE | 2016-06-22 11:25 | EKG ---
Test Reason : Blood Pressure : / mmHG Vent. Rate : 085 BPM Atrial Rate : 085 BPM P-R Int : 138 ms QRS Dur : 126 ms QT Int : 408 ms P-R-T Axes : 064 -38 012 degrees QTc Int : 485 ms NORMAL SINUS RHYTHM POSSIBLE LEFT ATRIAL ENLARGEMENT LEFT AXIS DEVIATION RIGHT BUNDLE BRANCH BLOCK LEFT VENTRICULAR HYPERTROPHY CANNOT RULE OUT SEPTAL INFARCT (CITED ON OR BEFORE 03-JUN-2016) ABNORMAL ECG Confirmed by MARIELLE ALEXANDER, SONIA ([id number]) on 06/22/2016 11:25:18 AM Referred By: Confirmed By:SONIA PALOMARES MD
[2016-06-22] MEDS ORDERED: INSULIN (NOVOLOG) ASPART 100 UNITS/ML 10ML VIAL ONE ×2 (11:27→17:48)
[2016-06-22] MEDS ORDERED: INFLUENZA VACCINE 45 MCG/0.5 ML (MDV 16-17) IM ONE (13:00)
--- NOTE | 2016-06-22 15:59 | PN ---
Physical Exam: SUBJECTIVE: Patient seen and examined, still with cough productive of white sputum, afebrile. OBJECTIVE: Vital Signs Period Temp Pulse Resp BP Sys/Luo Pulse Ox Last 24 Hr 97.3 F-98.2 F 85-97 16-22 138-169/52-73 94-97 GENERAL: The patient is a belarusian speaking female, awake, alert, and fully oriented, in no acute distress. HEAD: Normal with no signs of trauma. EYES: PERRL, extraocular movements intact, sclera anicteric, conjunctiva clear. No ptosis. ENT: Ears normal, nares patent, oropharynx clear without exudates, moist mucous membranes. NECK: Trachea midline, full range of motion, supple. LUNGS: decreased breath sounds; bilateral crackles HEART: Regular rate and rhythm, S1, S2 without murmur, rub or gallop. ABDOMEN: Soft, nontender, nondistended, normoactive bowel sounds, no guarding, no rebound, no hepatosplenomegaly, no masses. EXTREMITIES: 2+ pulses, warm, well-perfused, no edema. NEUROLOGICAL: Cranial nerves II through XII grossly intact. Normal speech, gait not observed. PSYCH: Normal mood, normal affect. SKIN: Warm, dry, normal turgor, no rashes or lesions noted Laboratory Results - last 24 hr 06/22/16 06/22/16 06/22/16 00:28 06:15 06:15 WBC 10.1 H RBC 3.01 L Hgb 8.9 L Hct 27.1 L MCV 90.1 MCHC 32.9 RDW 13.8 Plt Count 137 D MPV 11.0 Sodium 139 Potassium 4.6 Chloride 108 H Carbon Dioxide 18 L Anion Gap 13 BUN 32 H Creatinine 1.1 H POC Glucometer Random Glucose 252 H Calcium 7.9 L Phosphorus 2.6 D Magnesium 2.1 Troponin I < 0.02 Urine Color Straw Urine Appearance Clear Urine pH 5.0 Ur Specific [place] 1.014 Urine Protein 2+ H Urine Glucose (UA) 3+ H Urine Ketones Trace H Urine Blood 1+ H Urine Nitrite Negative Urine Bilirubin Negative Urine Urobilinogen Negative Ur Leukocyte Esterase Trace H Urine RBC 2 Urine WBC 15 Urine Bacteria Rare Hyaline Casts 1 Urine Mucus Rare 06/22/16 06/22/16 06:35 11:22 WBC RBC Hgb Hct MCV MCHC RDW Plt Count MPV Sodium Potassium Chloride Carbon Dioxide Anion Gap BUN Creatinine POC Glucometer 257 276 Random Glucose Calcium Phosphorus Magnesium Troponin I Urine Color Urine Appearance Urine pH Ur Specific [place] Urine Protein Urine Glucose (UA) Urine Ketones Urine Blood Urine Nitrite Urine Bilirubin Urine Urobilinogen Ur Leukocyte Esterase Urine RBC Urine WBC Urine Bacteria Hyaline Casts Urine Mucus Active Medications Generic Name Dose Route Start Last Admin Trade Name [place] PRN Reason Stop Dose Admin Acetaminophen 650 mg 06/21/16 23:06 Tylenol - PO Q4H PRN FEVER OR PAIN Albuterol/Ipratropium 1 amp 06/22/16 00:00 06/22/16 11:19 Duoneb - NEB 1 amp QIDR VERONICA Administration Amlodipine Besylate 10 mg 06/22/16 10:00 06/22/16 09:45 Norvasc - PO 10 mg DAILY VERONICA Administration Atorvastatin Calcium 10 mg 06/22/16 22:00 Lipitor - PO HS VERONICA Calcium Carbonate/Cholecalciferol 1 tab 06/22/16 10:00 06/22/16 09:45 Os-Eduard 500+D - PO 1 tab DAILY VERONICA Administration Clopidogrel Bisulfate 75 mg 06/22/16 10:00 06/22/16 09:45 Plavix - PO 75 mg DAILY VERONICA Administration Ferrous Sulfate 325 mg 06/22/16 10:00 06/22/16 09:45 Feosol - PO 325 mg DAILY VERONICA Administration Furosemide 20 mg 06/22/16 10:00 06/22/16 09:45 Lasix - PO 20 mg DAILY VERONICA Administration Heparin Sodium (Porcine) 5,000 unit 06/22/16 10:00 06/22/16 09:46 Heparin - SQ 5,000 unit BID VERONICA Administration Sodium Chloride 1,000 mls @ 60 mls/hr 06/21/16 23:15 06/21/16 23:21 Normal Saline - IV 06/22/16 15:54 60 mls/hr ASDIR VERONICA Administration Insulin Aspart 1 vial 06/22/16 07:00 06/22/16 11:32 Novolog Vial Sliding Scale - SQ 6 units ACHS [facility] Administration Protocol Losartan Potassium 100 mg 06/22/16 10:00 06/22/16 09:45 Cozaar - PO 100 mg DAILY VERONICA Administration Ranitidine HCl 150 mg 06/22/16 10:00 06/22/16 09:45 Zantac - PO 150 mg DAILY VERONICA Administration ASSESSMENT/PLAN: This is a 85 year old Faroese speaking female; with a PMHx of hypertension, hyperlipidemia, diabetes mellitus, osteoporosis presents with a one week history of cough. #Atypical Pneumonia: -IV Levaquin 750mg qd -CXR -Cultures sent & pending -urine antigens for pneumonia pending -saturating well on 2liter NC, Keep O2 sat >91% -Duonebs QIDR #hyperglycemia -Insulin SS -start diabetic diet in AM (if FS too low, can consider D5-NS) #Acute on chronic kidney disease; most likely dehydration -creatinine 1.6 initially, down to 1.3 after 500cc fluid resuscitation -dehydration is likely etiology (baseline is 1.3-1.5) -avoid nephrotoxic meds #HTN -Norvasc 10 mg PO DAILY -Lipitor 10 mg PO HS -Lasix 20 mg PO DAILY, -Cozaar 100 mg PO DAILY FEN: Fluids:IVF ns Electrolytes: wnl Diet: diabetic VTE prophylaxis: heparin sq Disposition: iv antibiotics Visit type - Emergency Visit Emergency Visit: Yes ED Registration Date: 06/21/16 Care time: The patient presented to the Emergency Department on the above date and was hospitalized for further evaluation of their emergent condition. - New Patient This patient is new to me today: Yes Date on this admission: 06/22/16 - Critical Care Critical Care patient: No
[2016-06-22] MEDS ORDERED: GABAPENTIN 100 MG CAPSULE (FP) PO SCH (16:15)
--- NOTE | 2016-06-22 16:16 | PN ---
Teaching Attending Note Name of Resident: Amita Weber ATTENDING PHYSICIAN STATEMENT I saw and evaluated the patient. I reviewed the resident's note and discussed the case with the resident. I agree with the resident's findings and plan as documented. SUBJECTIVE: Patient complains of productive cough. OBJECTIVE: Vital Signs Period Temp Pulse Resp BP Sys/Luo Pulse Ox Last 24 Hr 97.3 F-98.2 F 85-97 16-22 138-169/52-73 94-97 HEART: S1S2, RRR LUNGS: Bibasilar crackles ABDOMEN: Soft, non-tender, non-distended, normal BS EXTREMITIES: No edema ASSESSMENT AND PLAN: This is an 85-year-old woman with a history of HTN, hyperlipidemia, type 2 DM, osteoporosis who presented to the ER with a productive cough. 1. Pneumonia - WBC improving, afebrile - Continue Levaquin 2. Uncontrolled type 2 DM with possible early DKA - Improved - Continue Novolog sliding scale 3. Acute kidney injury secondary to dehydration - Improving with IV fluid 4. Stage 3 CKD 5. HTN - Continue Cozaar, Norvasc, Lasix 6. Hyperlipidemia - Continue Lipitor Visit type
[2016-06-22] MEDS: guaiFENesin/D-M SUGAR-FREE/ACLHOL-FREE 118 ML BOTTLE PO PRN (18:18)
[2016-06-22] MEDS ORDERED: PT OWN MED DRAWER 7, Y5N ONE (18:21)
[2016-06-22] MEDS ORDERED: INSULIN DETEMIR 100 UNITS/ML MDV SQ SCH (22:00)
[2016-06-22] MEDS: ATORVASTATIN CA 10 MG TABLET (FP) PO SCH (22:23)
[2016-06-23] MEDS: ACETAMINOPHEN 325 MG TABLET (FP) PO PRN (00:15)
[2016-06-23] MEDS ORDERED: PT OWN MED DRAWER 7, Y5N ONE ×2 (02:42→23:14)
[2016-06-23] MEDS: guaiFENesin/D-M SUGAR-FREE/ACLHOL-FREE 118 ML BOTTLE PO PRN ×2 (02:43→23:15)
[2016-06-23] MEDS: ALBUTEROL SO4 2.5/IPRATROPIUM 0.5 INH SOL 3 ML VIAL.NEB. NEB SCH ×4 (06:05→18:12)
[2016-06-23] MEDS: INSULIN SLIDING SCALE (NOVOLOG) 1 VIAL SQ SCH ×4 (06:37→21:31)
[2016-06-23 07:38] LABS: BASOPHIL 0.1 % (0-2.0); EOSINOPHIL 0.1 % (0-4.5); MCH 29.2 pg (25.7-33.7); MCHC 32.3 g/dl (32.0-36.0); MEAN CELL VOLUME 90.2 fl (80-96); MEAN PLT VOLUME 10.7 fl (7.5-11.1); NEUTROPHILS 75.9 % (42.8-82.8); PLATELET COUNT 137 K/MM3 (134-434); RDW 13.5 % (11.6-15.6)
[2016-06-23 08:07] LABS: CALCIUM 8.4 mg/dL (8.5-10.1); COCKROFT - GAULT 22.7035; CREATININE 1.5 mg/dL (0.55-1.02)
[2016-06-23] MEDS: RANITIDINE HCL 150 MG TABLET (FP) PO SCH (11:06)
[2016-06-23] MEDS: HEPARIN NA (PORCINE) 5,000 UNITS/ML 1ML VIAL SQ SCH ×2 (11:07→21:30)
[2016-06-23] MEDS: FUROSEMIDE 20 MG TABLET (FP) PO SCH (11:07)
[2016-06-23] MEDS: amLODIPine BESYLATE 10 MG TABLET (FP) PO SCH (11:07)
[2016-06-23] MEDS: FERROUS SO4 325 MG TABLET (FP) PO SCH (11:07)
[2016-06-23] MEDS: CALCIUM 500MG/VIT-D 200 UNITS COMBO TABLET (FP) PO SCH (11:07)
[2016-06-23] MEDS: CLOPIDOGREL BISULFATE 75 MG TABLET (FP) PO SCH (11:07)
[2016-06-23] MEDS: LOSARTAN POTASSIUM 50 MG TABLET (FP) PO SCH (11:07)
--- NOTE | 2016-06-23 11:32 | PN ---
Addendum entered and electronically signed by Amita Weber RES 06/23/16 11 :38: #anemia : stable; most likely due to infection and dehydration repeat CXR from today; negative for acute findings Original Note: Physical Exam: SUBJECTIVE: Patient seen and examined still with cough, although improved, c/o of headache overnight. Afebrile. OBJECTIVE: Vital Signs Period Temp Pulse Resp BP Sys/Luo Pulse Ox Last 24 Hr 97.6 F-98.5 F 78-97 16-20 138-149/55-65 97 GENERAL: The patient is awake, alert, and fully oriented, in no acute distress. HEAD: Normal with no signs of trauma. EYES: PERRL, extraocular movements intact, sclera anicteric, conjunctiva clear. No ptosis. ENT: Ears normal, nares patent, oropharynx clear without exudates, moist mucous membranes. NECK: Trachea midline, full range of motion, supple. LUNGS: Breath sounds equal, clear to auscultation bilaterally, bilateral crackles, improved, no accessory muscle use. HEART: Regular rate and rhythm, S1, S2 without murmur, rub or gallop. ABDOMEN: Soft, nontender, nondistended, normoactive bowel sounds, no guarding, no rebound, no hepatosplenomegaly, no masses. EXTREMITIES: 2+ pulses, warm, well-perfused, no edema. NEUROLOGICAL: Cranial nerves II through XII grossly intact. Normal speech, gait not observed. PSYCH: Normal mood, normal affect. SKIN: Warm, dry, normal turgor, no rashes or lesions noted Laboratory Results - last 24 hr 06/22/16 06/22/16 06/22/16 11:22 17:38 22:20 WBC RBC Hgb Hct MCV MCHC RDW Plt Count MPV Neutrophils % Lymphocytes % Monocytes % Eosinophils % Basophils % Sodium Potassium Chloride Carbon Dioxide Anion Gap BUN Creatinine POC Glucometer 276 244 281 Random Glucose Calcium 06/23/16 06/23/16 06/23/16 06:35 07:20 07:20 WBC 9.0 RBC 3.07 L Hgb 8.9 L Hct 27.6 L MCV 90.2 MCHC 32.3 RDW 13.5 Plt Count 137 MPV 10.7 Neutrophils % 75.9 Lymphocytes % 17.5 D Monocytes % 6.4 Eosinophils % 0.1 Basophils % 0.1 Sodium 138 Potassium 3.6 D Chloride 106 Carbon Dioxide 20 L Anion Gap 12 BUN 27 H Creatinine 1.5 H D POC Glucometer 307 Random Glucose 313 H* D Calcium 8.4 L Active Medications Generic Name Dose Route Start Last Admin Trade Name Freq PRN Reason Stop Dose Admin Acetaminophen 650 mg 06/21/16 23:06 06/23/16 00:15 Tylenol - PO 650 mg Q4H PRN Administration FEVER OR PAIN Albuterol/Ipratropium 1 amp 06/22/16 00:00 06/23/16 06:05 Duoneb - NEB 1 amp QIDR VERONICA Administration Amlodipine Besylate 10 mg 06/22/16 10:00 06/23/16 11:07 Norvasc - PO 10 mg DAILY VERONICA Administration Atorvastatin Calcium 10 mg 06/22/16 22:00 06/22/16 22:23 Lipitor - PO 10 mg HS VERONICA Administration Calcium Carbonate/Cholecalciferol 1 tab 06/22/16 10:00 06/23/16 11:07 Os-Eduard 500+D - PO 1 tab DAILY VERONICA Administration Clopidogrel Bisulfate 75 mg 06/22/16 10:00 06/23/16 11:07 Plavix - PO 75 mg DAILY VERONICA Administration Ferrous Sulfate 325 mg 06/22/16 10:00 06/23/16 11:07 Feosol - PO 325 mg DAILY VERONICA Administration Furosemide 20 mg 06/22/16 10:00 06/23/16 11:07 Lasix - PO 20 mg DAILY VERONICA Administration Guaifenesin 10 ml 06/22/16 16:01 06/23/16 02:43 Diabetic Tussin Dm - PO 10 ml Q4H PRN Administration COUGH Heparin Sodium (Porcine) 5,000 unit 06/22/16 10:00 06/23/16 11:07 Heparin - SQ 5,000 unit BID VERONICA Administration Insulin Aspart 1 vial 06/22/16 07:00 06/23/16 06:37 Novolog Vial Sliding Scale - SQ 8 units ACHS VERONICA Administration Protocol Insulin Detemir 20 units 06/22/16 22:00 06/22/16 22:24 Levemir Vial SQ 20 units HS VERONICA Administration Losartan Potassium 100 mg 06/22/16 10:00 06/23/16 11:07 Cozaar - PO 100 mg DAILY VERONICA Administration Ranitidine HCl 150 mg 06/22/16 10:00 06/23/16 11:06 Zantac - PO 150 mg DAILY VERONICA Administration ASSESSMENT/PLAN: This is a 85 year old Armenian speaking female; with a PMHx of hypertension, hyperlipidemia, diabetes mellitus, osteoporosis presents with a one week history of cough #Atypical Pneumonia: -IV Levaquin 750mg qd -CXR -Cultures sent & pending -urine antigens for pneumonia negative -Duonebs QIDR #hyperglycemia -Insulin SS -increased levimir to 30U -bgm #Acute on chronic kidney disease; worse today -creatinine increased to from 1.3 to 1.5 today -IVF NS -dehydration is likely etiology (baseline is 1.3-1.5) -avoid nephrotoxic meds #HTN -Norvasc 10 mg PO DAILY -Lipitor 10 mg PO HS -Lasix 20 mg PO DAILY, -Cozaar 100 mg PO DAILY FEN: Fluids:IVF ns Electrolytes: wnl Diet: diabetic VTE prophylaxis: heparin sq Disposition: iv antibiotics Visit type - Emergency Visit Emergency Visit: Yes ED Registration Date: 06/21/16 Care time: The patient presented to the Emergency Department on the above date and was hospitalized for further evaluation of their emergent condition. - New Patient This patient is new to me today: No - Critical Care Critical Care patient: No
[2016-06-23] MEDS: SODIUM CHLORIDE 1,000 ML IV SCH (12:15)
[2016-06-23] MEDS ORDERED: LEVOFLOXACIN 750 MG IVPB 150 ML IVPB SCH (14:45)
--- NOTE | 2016-06-23 15:12 | PN ---
Teaching Attending Note Name of Resident: Amita Weber ATTENDING PHYSICIAN STATEMENT I saw and evaluated the patient. I reviewed the resident's note and discussed the case with the resident. I agree with the resident's findings and plan as documented. SUBJECTIVE: Patient is feeling better. Coughing less. OBJECTIVE: Vital Signs Period Temp Pulse Resp BP Sys/Luo Pulse Ox Last 24 Hr 98 F-98.5 F 78-93 18-20 144-149/59-65 97 HEART: S1S2, RRR LUNGS: Crackles at left base ABDOMEN: Soft, non-tender, non-distended, normal BS EXTREMITIES: No edema ASSESSMENT AND PLAN: This is an 85-year-old woman with a history of HTN, hyperlipidemia, type 2 DM, osteoporosis who presented to the ER with a productive cough. 1. Pneumonia - WBC improved, afebrile - Continue Levaquin (day 3) 2. Uncontrolled type 2 DM with possible early DKA - Improved - Levemir started - Continue Novolog sliding scale 3. Stage 3 CKD - Creatinine stable 4. HTN - Continue Cozaar, Norvasc, Lasix 5. Hyperlipidemia - Continue Lipitor 6. Anemia - Hemoglobin stable - Continue ferrous sulfate
[2016-06-23] MEDS: LEVOFLOXACIN 250 MG IVPB 50 ML IVPB SCH (17:12)
[2016-06-23] MEDS: ATORVASTATIN CA 10 MG TABLET (FP) PO SCH (21:31)
[2016-06-23] MEDS ORDERED: INSULIN DETEMIR 100 UNITS/ML MDV SQ SCH (22:00)
[2016-06-24] MEDS: ALBUTEROL SO4 2.5/IPRATROPIUM 0.5 INH SOL 3 ML VIAL.NEB. NEB SCH ×5 (05:54→23:11)
[2016-06-24] MEDS: INSULIN SLIDING SCALE (NOVOLOG) 1 VIAL SQ SCH ×4 (06:41→22:00)
[2016-06-24 07:59] LABS: BASOPHIL 0.2 % (0-2.0); EOSINOPHIL 0.5 % (0-4.5); MCH 29.4 pg (25.7-33.7); MEAN CELL VOLUME 88.9 fl (80-96); MEAN PLT VOLUME 10.1 fl (7.5-11.1); NEUTROPHILS 77.1 % (42.8-82.8); PLATELET COUNT 132 K/MM3 (134-434); RDW 13.8 % (11.6-15.6); WHITE BLOOD COUNT 8.8 K/mm3 (4.0-10.0)
[2016-06-24 08:30] LABS: COCKROFT - GAULT 30.957; CREATININE 1.1 mg/dL (0.55-1.02)
[2016-06-24] MEDS: guaiFENesin/D-M SUGAR-FREE/ACLHOL-FREE 118 ML BOTTLE PO PRN (08:43)
[2016-06-24] MEDS: amLODIPine BESYLATE 10 MG TABLET (FP) PO SCH (09:58)
[2016-06-24] MEDS: FUROSEMIDE 20 MG TABLET (FP) PO SCH (09:58)
[2016-06-24] MEDS: RANITIDINE HCL 150 MG TABLET (FP) PO SCH (09:58)
[2016-06-24] MEDS: CALCIUM 500MG/VIT-D 200 UNITS COMBO TABLET (FP) PO SCH (10:02)
[2016-06-24] MEDS: CLOPIDOGREL BISULFATE 75 MG TABLET (FP) PO SCH (10:02)
[2016-06-24] MEDS: HEPARIN NA (PORCINE) 5,000 UNITS/ML 1ML VIAL SQ SCH ×2 (10:03→22:01)
[2016-06-24] MEDS: LEVOFLOXACIN 250 MG IVPB 50 ML IVPB SCH (10:04)
[2016-06-24] MEDS: LOSARTAN POTASSIUM 50 MG TABLET (FP) PO SCH (10:04)
[2016-06-24] MEDS: FERROUS SO4 325 MG TABLET (FP) PO SCH (10:04)
[2016-06-24] MEDS: SODIUM CHLORIDE 1,000 ML IV SCH ×2 (10:05→11:53)
[2016-06-24] MEDS ORDERED: POTASSIUM CHLORIDE TABS 20 MEQ TABLET.ER (FP) PO ONE (11:00)
--- NOTE | 2016-06-24 13:43 | PN ---
Physical Exam: SUBJECTIVE: Patient seen and examined. Cough is improving. OBJECTIVE: Vital Signs Period Temp Pulse Resp BP Sys/Luo Pulse Ox Last 24 Hr 98.1 F-98.8 F 96-98 16-20 115-156/54-78 96 GENERAL: The patient is awake, alert, and fully oriented, in no acute distress. LUNGS: Breath sounds equal, clear to auscultation bilaterally, no wheezes, no crackles, no accessory muscle use. HEART: Regular rate and rhythm, S1, S2 without murmur, rub or gallop. ABDOMEN: Soft, nontender, nondistended, normoactive bowel sounds, no guarding, no rebound, no hepatosplenomegaly, no masses. EXTREMITIES: 2+ pulses, warm, well-perfused, no edema. Laboratory Results - last 24 hr 06/23/16 06/23/16 06/24/16 17:17 21:27 06:00 WBC 8.8 RBC 2.86 L Hgb 8.4 L Hct 25.4 L MCV 88.9 MCHC 33.0 RDW 13.8 Plt Count 132 L MPV 10.1 Neutrophils % 77.1 Lymphocytes % 15.1 Monocytes % 7.1 Eosinophils % 0.5 D Basophils % 0.2 Sodium Potassium Chloride Carbon Dioxide Anion Gap BUN Creatinine POC Glucometer 239 299 Random Glucose Calcium 06/24/16 06/24/16 06/24/16 06:00 06:34 11:19 WBC RBC Hgb Hct MCV MCHC RDW Plt Count MPV Neutrophils % Lymphocytes % Monocytes % Eosinophils % Basophils % Sodium 142 Potassium 3.4 L Chloride 111 H Carbon Dioxide 22 Anion Gap 9 BUN 19 H D Creatinine 1.1 H D POC Glucometer 66 167 Random Glucose 80 D Calcium 8.0 L Active Medications Generic Name Dose Route Start Last Admin Trade Name Freq PRN Reason Stop Dose Admin Acetaminophen 650 mg 06/21/16 23:06 06/23/16 00:15 Tylenol - PO 650 mg Q4H PRN Administration FEVER OR PAIN Albuterol/Ipratropium 1 amp 06/22/16 00:00 06/24/16 11:47 Duoneb - NEB 1 amp QIDR VERONICA Administration Amlodipine Besylate 10 mg 06/22/16 10:00 06/24/16 09:58 Norvasc - PO 10 mg DAILY VERONICA Administration Atorvastatin Calcium 10 mg 06/22/16 22:00 06/23/16 21:31 Lipitor - PO 10 mg HS VERONICA Administration Calcium Carbonate/Cholecalciferol 1 tab 06/22/16 10:00 06/24/16 10:02 Os-Eduard 500+D - PO 1 tab DAILY VERONICA Administration Clopidogrel Bisulfate 75 mg 06/22/16 10:00 06/24/16 10:02 Plavix - PO 75 mg DAILY VERONICA Administration Ferrous Sulfate 325 mg 06/22/16 10:00 06/24/16 10:04 Feosol - PO 325 mg DAILY VERONICA Administration Furosemide 20 mg 06/22/16 10:00 06/24/16 09:58 Lasix - PO 20 mg DAILY VERONICA Administration Guaifenesin 10 ml 06/22/16 16:01 06/24/16 08:43 Diabetic Tussin Dm - PO 10 ml Q4H PRN Administration COUGH Heparin Sodium (Porcine) 5,000 unit 06/22/16 10:00 06/24/16 10:03 Heparin - SQ 5,000 unit BID VERONICA Administration Sodium Chloride 1,000 mls @ 83 mls/hr 06/23/16 11:45 06/24/16 11:53 Normal Saline - IV Not Given ASDIR VERONICA Levofloxacin 50 mls @ 50 mls/hr 06/23/16 15:00 06/24/16 10:04 Levaquin 250 Mg Premixed Ivpb - IVPB 50 mls/hr DAILY VERONICA Administration Insulin Aspart 1 vial 06/22/16 07:00 06/24/16 11:53 Novolog Vial Sliding Scale - SQ 2 units ACHS VERONICA Administration Protocol Insulin Detemir 30 units 06/23/16 22:00 06/23/16 21:31 Levemir Vial SQ 30 units HS VERONICA Administration Losartan Potassium 100 mg 06/22/16 10:00 06/24/16 10:04 Cozaar - PO 100 mg DAILY VERONICA Administration Ranitidine HCl 150 mg 06/22/16 10:00 06/24/16 09:58 Zantac - PO 150 mg DAILY VERONICA Administration ASSESSMENT/PLAN: This is an 85-year-old woman with a history of HTN, hyperlipidemia, type 2 DM, osteoporosis who presented to the ER with a productive cough. 1. Pneumonia - WBC improved, afebrile - Continue Levaquin (day 4) 2. Uncontrolled type 2 DM with possible early DKA - Improved - Decrease Levemir - Continue Novolog sliding scale 3. Acute kidney injury - Improved 4. Stage 3 CKD 5. HTN - Continue Cozaar, Norvasc, Lasix 6. Hyperlipidemia - Continue Lipitor 7. Anemia, likely secondary to chronic illness - Continue ferrous sulfate - Check iron studies, TSH, B12, folate 8. Hypokalemia - Replete potassium 9. Continue PT. Expect discharge in AM. Visit type - Emergency Visit Emergency Visit: Yes ED Registration Date: 06/21/16 Care time: The patient presented to the Emergency Department on the above date and was hospitalized for further evaluation of their emergent condition. - New Patient This patient is new to me today: No - Critical Care Critical Care patient: No - Discharge Referral Referred to [facility] Med P.C.: No
[2016-06-24] MEDS: ACETAMINOPHEN 325 MG TABLET (FP) PO PRN (19:42)
[2016-06-24] MEDS ORDERED: INSULIN DETEMIR 100 UNITS/ML MDV SQ SCH (22:00)
[2016-06-24] MEDS: ATORVASTATIN CA 10 MG TABLET (FP) PO SCH (22:01)
[2016-06-25] MEDS: INSULIN SLIDING SCALE (NOVOLOG) 1 VIAL SQ SCH ×2 (06:36→12:33)
[2016-06-25] MEDS ORDERED: DEXTROSE 50%-WATER 50 ML DISP.SYRIN ONE (06:38)
[2016-06-25] MEDS ORDERED: DEXTROSE 50%-WATER 50 ML DISP.SYRIN IVPUSH ONE (06:45)
[2016-06-25] MEDS: ALBUTEROL SO4 2.5/IPRATROPIUM 0.5 INH SOL 3 ML VIAL.NEB. NEB SCH ×2 (06:45→11:30)
[2016-06-25 07:47] LABS: MCH 28.8 pg (25.7-33.7); MCHC 32.3 g/dl (32.0-36.0); MEAN CELL VOLUME 89.3 fl (80-96); MEAN PLT VOLUME 10.2 fl (7.5-11.1); PLATELET COUNT 149 K/MM3 (134-434); RDW 14.2 % (11.6-15.6); WHITE BLOOD COUNT 9.1 K/mm3 (4.0-10.0)
[2016-06-25 07:49] LABS: CALCIUM 8.5 mg/dL (8.5-10.1); COCKROFT - GAULT 30.957; CREATININE 1.1 mg/dL (0.55-1.02)
[2016-06-25 07:56] LABS: FERRITIN 406.754 ng/ml (6.9-282.5); THYROID STIMULATING HORMONE 0.25 uIU/ml (0.358-3.74)
[2016-06-25] MEDS: CALCIUM 500MG/VIT-D 200 UNITS COMBO TABLET (FP) PO SCH (10:23)
[2016-06-25] MEDS: amLODIPine BESYLATE 10 MG TABLET (FP) PO SCH (10:23)
[2016-06-25] MEDS: FERROUS SO4 325 MG TABLET (FP) PO SCH (10:23)
[2016-06-25] MEDS: RANITIDINE HCL 150 MG TABLET (FP) PO SCH (10:23)
[2016-06-25] MEDS: LOSARTAN POTASSIUM 50 MG TABLET (FP) PO SCH (10:23)
[2016-06-25] MEDS: CLOPIDOGREL BISULFATE 75 MG TABLET (FP) PO SCH (10:23)
[2016-06-25] MEDS: HEPARIN NA (PORCINE) 5,000 UNITS/ML 1ML VIAL SQ SCH (10:23)
[2016-06-25] MEDS: FUROSEMIDE 20 MG TABLET (FP) PO SCH (10:23)
[2016-06-25] MEDS: LEVOFLOXACIN 250 MG IVPB 50 ML IVPB SCH (10:23)
[2016-06-25 11:40] VITALS: PULSE 92
[2016-06-25] MEDS: SODIUM CHLORIDE 1,000 ML IV SCH ×2 (11:53→13:50)
[2016-06-25 14:40] VITALS: BP 143/65; TEMP 98.6
--- NOTE | 2016-06-25 16:02 | DS ---
Physical Exam: SUBJECTIVE: Patient seen and examined afebrile, cough decreased, white count wnl , able to walk over 50 feet with physical therapy. OBJECTIVE: Vital Signs Period Temp Pulse Resp BP Sys/Luo Pulse Ox Last 24 Hr 98.1 F-98.6 F 82-96 18-18 123-149/50-65 96-98 PHYSICAL EXAM GENERAL: The patient is awake, alert, and fully oriented, in no acute distress. HEAD: Normal with no signs of trauma. EYES: PERRL, extraocular movements intact, sclera anicteric, conjunctiva clear. ENT: Ears normal, nares patent, oropharynx clear without exudates, moist mucous membranes. NECK: Trachea midline, full range of motion, supple. LUNGS: Breath sounds equal, clear to auscultation bilaterally, no wheezes, minor crackles; RLL , but improved, no accessory muscle use. HEART: Regular rate and rhythm, S1, S2 without murmur, rub or gallop. ABDOMEN: Soft, nontender, nondistended, normoactive bowel sounds, no guarding, no rebound, no hepatosplenomegaly, no masses. EXTREMITIES: 2+ pulses, warm, well-perfused, no edema. NEUROLOGICAL: Cranial nerves II through XII grossly intact. Normal speech, gait not observed. PSYCH: Normal mood, normal affect. SKIN: Warm, dry, normal turgor, no rashes or lesions noted. LABS Laboratory Results - last 24 hr 06/24/16 06/24/16 06/25/16 16:51 21:57 06:00 WBC 9.1 RBC 2.92 L Hgb 8.4 L Hct 26.1 L MCV 89.3 MCHC 32.3 RDW 14.2 Plt Count 149 MPV 10.2 Sodium Potassium Chloride Carbon Dioxide Anion Gap BUN Creatinine POC Glucometer 90 263 Random Glucose Calcium Ferritin Vitamin B12 Serum Folate TSH 06/25/16 06/25/16 06/25/16 06:00 06:21 06:59 WBC RBC Hgb Hct MCV MCHC RDW Plt Count MPV Sodium 144 Potassium 4.0 Chloride 112 H Carbon Dioxide 22 Anion Gap 10 BUN 17 Creatinine 1.1 H POC Glucometer 47 239 Random Glucose 42 L* D Calcium 8.5 Ferritin 406.754 H Vitamin B12 1726 H Serum Folate 20 H TSH 0.25 L 06/25/16 11:42 WBC RBC Hgb Hct MCV MCHC RDW Plt Count MPV Sodium Potassium Chloride Carbon Dioxide Anion Gap BUN Creatinine POC Glucometer 202 Random Glucose Calcium Ferritin Vitamin B12 Serum Folate TSH HOSPITAL COURSE: Date of Admission:06/21/16 Date of Discharge: 06/25/16 This is a 85 year old Serbian speaking femalem with a past medical of hypertension, hyperlipidemia, diabetes mellitus, osteoporosis presents with a one week history of non productive cough, congestion and shortness of breath, admitted for acquired pneumonia. # Atypical Pneumonia: -Levaquin complete 7 day course; finish course as outpatient -CXR negative -Blood Cultures negative -urine antigens for pneumonia negative -Duonebs QIDR -saturating well on 2liter NC, Keep O2 sat >91% #hyperglycemia: controlled -Insulin SS -Levemir #Acute on chronic kidney disease: resolved -dehydration is likely etiology (baseline is 1.3-1.5) -avoid nephrotoxic meds #HTN: controlled -Norvasc 10 mg PO DAILY -Lipitor 10 mg PO HS -Lasix 20 mg PO DAILY, -Cozaar 100 mg PO DAILY FEN: Fluids:IVF ns Electrolytes: wnl Diet: diabetic VTE prophylaxis: heparin sq Disposition: discharged to home; walked over 50 feet with physical therapy Minutes to complete discharge: 35 Discharge Summary Reason For Visit: ATYPICAL PNEUMONIA/DKA Current Active Problems Atypical pneumonia (Acute) DKA (diabetic ketoacidosis) (Acute) Condition: Improved - Instructions Diet, Activity, Other Instructions: Mrs. Ledbetter, you have been treated for pneumonia. Please continue to take antibiotics as directed and follow up with your primary care physician with in one week to assess your improvement. If you experience any worsening of symptoms including worsening shortness of breath or cough, please return tot he emergency room. Referrals: Rikki Servin [Primary Care Provider] - Disposition: HOME - Home Medications Comprehensive Discharge Medication List: Ambulatory Orders Amlodipine Besylate [Norvasc -] 10 mg PO DAILY 06/03/16 Calcium Carbonate/Vitamin D3 [Calcium 600 + Vit D Tablet] 1 each PO DAILY Clopidogrel Bisulfate [Clopidogrel] 75 mg PO DAILY 06/03/16 Famotidine [Pepcid -] 40 mg PO BID #14 tablet 06/03/16 Furosemide [Lasix] 20 mg PO DAILY 06/03/16 Losartan Potassium [Cozaar] 100 mg PO DAILY 06/03/16 Simvastatin [Zocor -] 20 mg PO HS 06/03/16 Alendronate Sodium [Binosto] 70 mg PO ASDIR 06/21/16 Ferrous Sulfate 325 mg PO DAILY 06/21/16 Gabapentin [Neurontin -] 100 mg PO ASDIR 06/21/16 Guaifenesin/D-Methorphan Hb [Diabetic Tussin Dm -] 0 ml PO ASDIR 06/21/16 Insulin (Levemir) [Levemir Flexpen -] 20 units SQ DAILY MDD 20 U night 06/21/16 Insulin (Novolog) [Novolog Flexpen -] 0 units SQ ACHS MDD 7 U lunch time Lubiprostone [Amitiza] 8 mcg PO ASDIR 06/21/16 Mometasone Furoate 0.1% Tp Oin [Elocon (Non Formulary)] 0 gm NR ASDIR 06/21/16 Levofloxacin [Levaquin] 250 mg PO DAILY #3 tablet 06/25/16 This patient is new to me today: No Emergency Visit: Yes ED Registration Date: 06/21/16 Care time: The patient presented to the Emergency Department on the above date and was hospitalized for further evaluation of their emergent condition. Critical Care patient: No - Discharge Referral Referred to [facility] Med P.C.: No
--- NOTE | 2016-06-25 19:58 | PN ---
Teaching Attending Note Name of Resident: Amita Weber ATTENDING PHYSICIAN STATEMENT I saw and evaluated the patient. I reviewed the resident's note and discussed the case with the resident. I agree with the resident's findings and plan as documented. SUBJECTIVE: No complaints. OBJECTIVE: Vital Signs Period Temp Pulse Resp BP Sys/Luo Pulse Ox Last 24 Hr 98.2 F-98.6 F 86-96 18-18 123-149/50-65 96-98 GENERAL: The patient is awake, alert, and fully oriented, in no acute distress. LUNGS: Breath sounds equal, clear to auscultation bilaterally, no wheezes, no crackles, no accessory muscle use. HEART: Regular rate and rhythm, S1, S2 without murmur, rub or gallop. ABDOMEN: Soft, nontender, nondistended, normoactive bowel sounds, no guarding, no rebound, no hepatosplenomegaly, no masses. EXTREMITIES: 2+ pulses, warm, well-perfused, no edema. ASSESSMENT AND PLAN: This is an 85-year-old woman with a history of HTN, hyperlipidemia, type 2 DM, osteoporosis who presented to the ER with a productive cough. 1. Pneumonia - WBC improved, afebrile - Discharge on Levaquin 2. Uncontrolled type 2 DM with possible early DKA - Improved - Decrease Levemir - Continue Novolog sliding scale 3. Acute kidney injury - Improved 4. Stage 3 CKD 5. HTN - Continue Cozaar, Norvasc, Lasix 6. Hyperlipidemia - Continue Lipitor 7. Anemia, likely secondary to chronic illness - Continue ferrous sulfate - Stable 8. Hypokalemia - Improved
[2016-06-26 06:06] LABS: SERUM IRON 16 ug/dL (27-139); TOTAL IRON BINDING CAPACITY 136 ug/dL (250-450); UIBC 120 ug/dL (118-369)
== END 2016-06-25 17:31 | disposition home or self-care (01) | DRG 193 ==
LOC: JER 14:41 → JERBED 23:05 → UNDOADMIN 23:37 → JERBED 23:37 → J8W 06-22 03:53
PROVIDERS: ADMIT Internal Medicine; ATTEND Internal Medicine
DX: J18.9 Pneumonia, unspecified organism (principal); E13.10 Other specified diabetes mellitus with ketoacidosis without coma; N17.9 Acute kidney failure, unspecified; E78.5 Hyperlipidemia, unspecified; M81.0 Age-related osteoporosis without current pathological fracture; R09.02 Hypoxemia; E11.22 Type 2 diabetes mellitus with diabetic chronic kidney disease; I12.9 Hypertensive chronic kidney disease with stage 1 through stage 4 chronic kidney disease, or unspecified chronic kidney disease; N18.9 Chronic kidney disease, unspecified; E86.0 Dehydration; N18.3 Chronic kidney disease, stage 3 (moderate); E87.6 Hypokalemia; D63.8 Anemia in other chronic diseases classified elsewhere
CPT/HCPCS: 36415; 71010-TC; 71020-TC; 80048; 80053; 81003; 81015; 82009; 82550; 82607; 82728; 82746; 82803; 83540; 83550; 83735; 84100; 84443; 84484; 85025; 85027; 85379; 85610; 87040; 87086; 87254; 87804; 87899; 93005; 93010; 94640; 97116-GP; 97161-GP; 99283-25; G0008; J1644; Q2037

== ENCOUNTER 2016-08-01 16:28 | Inpatient (IN) | payer OTHER ==
--- NOTE | 2016-08-01 16:35 | PDOC ---
History of Present Illness - General History Source: Family Exam Limitations: Language Barrier - History of Present Illness Initial Comments: 08/01/16 18:14 This is an 85 yo F with PMH of gastritis (on egd 04/18/12), recently diagnosed pancreatic CA (CT abd here 06/03/16 shows large pancreatic head, distended GB and dilated biliary tree), also had ERCP 07/[address] Whittaker, then xferred to [facility] for biliary drain due to pancreatic CA, who now presents here after 4 episodes of coffee ground emesis over 2 days. over the past few days she has been feeling week, has not been able to ambulate, has had decreased memory, has not been eating or having BM. She had not had f/c. Her R biliady drain bag is full of dark brown liquid. These symptoms have not occured before. At baseline patient live alone, is mentally sharp and ambulates. SHe has an aid. History obtained from daughter. Oncology: Maddie Sr MD GI: tj Whittaker MD Palliative Care: [phone] 08/01/16 18:24 <Teresa Crawford - Last Filed: 08/01/16 18:46> <Rony Barajas - Last Filed: 08/02/16 02:12> - General Chief Complaint: Coffee Ground Emesis Stated Complaint: VOMITING Past History - Travel Traveled outside of the country in the last 30 days: No Close contact w/someone who was outside of country & ill: No - Past Medical History Diabetes: Yes HTN: Yes Hypercholesterolemia: Yes - Surgical History Appendectomy: Yes - Psycho/Social/Smoking Cessation Hx Anxiety: No Suicidal Ideation: No Smoking Status: No Smoking History: Never smoked Have you smoked in the past 12 months: No Number of Cigarettes Smoked Daily: 0 Hx Alcohol Use: No Drug/Substance Use Hx: No Substance Use Type: None Hx Substance Use Treatment: No <Teresa Crawford - Last Filed: 08/01/16 18:46> <Rony Barajas - Last Filed: 08/02/16 02:12> - Past Medical History Allergies/Adverse Reactions: Allergies Allergy/AdvReac Type Severity Reaction Status Date / Time No Known Allergies Allergy Verified 08/01/16 16:42 Home Medications: Ambulatory Orders Amlodipine Besylate [Norvasc -] 10 mg PO DAILY 06/03/16 Calcium Carbonate/Vitamin D3 [Calcium 600 + Vit D Tablet] 1 each PO DAILY Clopidogrel Bisulfate [Clopidogrel] 75 mg PO DAILY 06/03/16 Furosemide [Lasix] 20 mg PO DAILY 06/03/16 Losartan Potassium [Cozaar] 100 mg PO DAILY 06/03/16 Simvastatin [Zocor -] 20 mg PO HS 06/03/16 Insulin (Levemir) [Levemir Flexpen -] 20 units SQ DAILY MDD 20 U night 06/21/16 Insulin (Novolog) [Novolog Flexpen -] 0 units SQ ACHS MDD 7 U lunch time Cyanocobalamin (Vitamin B-12) [Vitamin B12] 2,500 mcg PO DAILY 08/01/16 Multivitamins [Tab-A-Vit -] 1 tab PO DAILY 08/01/16 Review of Systems - Review of Systems Able to Perform ROS?: No (lethargy) Is the patient limited Taiwanese proficient: Yes <Teresa Crawford - Last Filed: 08/01/16 18:46> *Physical Exam - Physical Exam Comments: 08/01/16 18:46 GENERAL: lethargic, alert, oriented to self, CACHECTIC, pale, appears dry HEENT: NORMOCEPHALIC, ATRAUMATIC, PERRLA EOMI, MILD SCLERAL ICTERUS, CONJUNCTIVA CLEAR PULM: bibasilar crackles GI: SOFT, DIFFUSELY MILDLY TENDER, NONDISTENDED, NORMOACTIVE BOWEL SOUNDS, MILD HEPATOMEGALY, NO MASS, r POSTERIOR CHOLECYSTOSTOMY TUBE IN PLACE, NONERYTHEMATOUS ENTRY SITE, CLEAN DRESSING, DARK BROWN LIQUID BAG CONTENTS NEURO: CRANIAL NERVES GROSSLY INTACT SKIN: DECREASED TURGOR EXTREMITIES: NO EDEMA, NO CALF TENDERNESS 08/01/16 18:52 <Teresa Crawford - Last Filed: 08/01/16 18:46> - Vital Signs Last Vital Signs Temp Pulse Resp BP Pulse Ox 98.5 F 100 H 18 121/41 98 08/01/16 23:33 08/01/16 23:33 08/01/16 23:33 08/01/16 23:33 08/01/16 23:33 <Rony Barajas - Last Filed: 08/02/16 02:12> Heart Score/ECG Review #1 ECG reviewed & interpreted by me at: 18:40 (NS, L axis, lv hypertrophy, precordial st inversions, lbb pattern) <Teresa Crawford - Last Filed: 08/01/16 18:46> ED Treatment Course - LABORATORY CBC & Chemistry Diagram: 08/01/16 17:15 08/01/16 16:45 <Teresa Crawford - Last Filed: 08/01/16 18:46> - LABORATORY CBC & Chemistry Diagram: 08/01/16 17:15 08/01/16 17:44 - ADDITIONAL ORDERS Additional order review: Laboratory Results 08/01/16 08/01/16 08/01/16 23:30 19:37 17:44 INR Sodium 140 Potassium 5.1 D Chloride 107 Carbon Dioxide 16 L D Anion Gap 17 H BUN 97 H D Creatinine 9.8 H* D Creat Clearance w eGFR 3.77 Random Glucose 94 D Lactic Acid Calcium 8.6 Magnesium 2.8 H D Total Bilirubin 0.5 AST 26 D ALT 23 D Alkaline Phosphatase 144 H D Total Protein 6.3 L Albumin 2.6 L Urine Color Yellow Urine Appearance Slcloudy Urine pH 5.0 Ur Specific [place] 1.020 Urine Protein 2+ H Urine Glucose (UA) Negative Urine Ketones Negative Urine Blood 1+ H Urine Nitrite Negative Urine Bilirubin Negative Urine Urobilinogen Negative Ur Leukocyte Esterase Negative Urine RBC 3 Urine WBC 6 Ur Epithelial Cells Rare Ur Random Sodium 57 Ur Random Potassium 19.5 Ur Random Chloride 55 Urine Creatinine 97.8 Blood Type Antibody Screen 08/01/16 08/01/16 08/01/16 17:41 17:41 17:15 INR 0.99 Sodium Potassium Chloride Carbon Dioxide Anion Gap BUN Creatinine Creat Clearance w eGFR Random Glucose Lactic Acid 0.7 Calcium Magnesium Total Bilirubin AST ALT Alkaline Phosphatase Total Protein Albumin Urine Color Urine Appearance Urine pH Ur Specific [place] Urine Protein Urine Glucose (UA) Urine Ketones Urine Blood Urine Nitrite Urine Bilirubin Urine Urobilinogen Ur Leukocyte Esterase Urine RBC Urine WBC Ur Epithelial Cells Ur Random Sodium Ur Random Potassium Ur Random Chloride Urine Creatinine Blood Type O NEGATIVE Antibody Screen Negative 08/01/16 16:45 INR Sodium Cancelled Potassium Cancelled Chloride Cancelled Carbon Dioxide Cancelled Anion Gap Cancelled BUN Cancelled Creatinine Cancelled Creat Clearance w eGFR Cancelled Random Glucose Cancelled Lactic Acid Calcium Cancelled Magnesium Cancelled Total Bilirubin Cancelled AST Cancelled ALT Cancelled Alkaline Phosphatase Cancelled Total Protein Cancelled Albumin Cancelled Urine Color Urine Appearance Urine pH Ur Specific [place] Urine Protein Urine Glucose (UA) Urine Ketones Urine Blood Urine Nitrite Urine Bilirubin Urine Urobilinogen Ur Leukocyte Esterase Urine RBC Urine WBC Ur Epithelial Cells Ur Random Sodium Ur Random Potassium Ur Random Chloride Urine Creatinine Blood Type Antibody Screen 08/01/16 17:15 RBC 3.22 L MCV 89.4 MCHC 31.3 L RDW 14.9 MPV 9.1 D Neutrophils % 91.0 H Lymphocytes % 4.6 L D Monocytes % 3.9 Eosinophils % 0.2 Basophils % 0.3 - Medications Given in the ED: ED Medications Discontinued Medications Generic Name Dose Route Start Last Admin Trade Name Freq PRN Reason Stop Dose Admin Pantoprazole Sodium 80 mg/ 100 mls @ 200 mls/hr 08/01/16 17:32 08/01/16 18:01 Sodium Chloride IVPB 08/01/16 18:01 200 mls/hr ONCE ONE Administration Sodium Chloride 250 mls @ 500 mls/hr 08/01/16 17:34 08/01/16 18:00 Normal Saline - IV 08/01/16 18:03 500 mls/hr ASDIR STA Administration Sodium Chloride 250 mls @ 500 mls/hr 08/01/16 18:57 08/01/16 20:00 Normal Saline - IV 08/01/16 19:26 500 mls/hr ASDIR STA Administration Sodium Chloride 250 mls @ 500 mls/hr 08/01/16 19:04 08/01/16 20:00 Normal Saline - IV 08/01/16 19:33 500 mls/hr ASDIR STA Administration Sodium Chloride 250 mls @ 500 mls/hr 08/01/16 21:56 08/01/16 22:12 Normal Saline - IV 08/01/16 22:25 500 mls/hr ASDIR STA Administration <Rony Barajas - Last Filed: 08/02/16 02:12> Medical Decision Making - Medical Decision Making 08/01/16 18:47 labs ordered; 250 cc NS IV bolus given mild leukocytosis 13 with left shift; order blood, urine culture, ua creat 9.8 from baseline of 1.1 =duke hgb 9-given protonix 80 iv, no transfusion needed -ordered hernández and strict I and O; CT abd/pelvis w/o contrast to check for hydronephrosis 08/01/16 18:49 08/01/16 18:51 08/01/16 18:52 <Teresa Crawford - Last Filed: 08/01/16 18:46> *DC/Admit/Observation/Transfer <Teresa Crawford - Last Filed: 08/01/16 18:46> - Discharge Dispostion Admit: Yes <Rony Barajas - Last Filed: 08/02/16 02:12> Diagnosis at time of Disposition: Coffee ground emesis Acute renal failure Qualifiers: Acute renal failure type: unspecified Qualified Code(s): N17.9 - Acute kidney failure, unspecified - Discharge Dispostion Condition at time of disposition: Fair
[2016-08-01 16:43] VITALS: BMI 20.2
[2016-08-01 17:27] LABS: BASOPHIL 0.3 % (0-2.0); EOSINOPHIL 0.2 % (0-4.5); MCHC 31.3 g/dl (32.0-36.0); MEAN CELL VOLUME 89.4 fl (80-96); MEAN PLT VOLUME 9.1 fl (7.5-11.1); PLATELET COUNT 211 K/MM3 (134-434); RDW 14.9 % (11.6-15.6); WHITE BLOOD COUNT 13.3 K/mm3 (4.0-10.0)
[2016-08-01] MEDS ORDERED: PANTOPRAZOLE SODIUM 80 MG in SODIUM CHLORIDE 100 ML IVPB ONE (17:32)
[2016-08-01] MEDS ORDERED: SODIUM CHLORIDE 250 ML IV STA ×4 (17:34→21:56)
[2016-08-01] MEDS ORDERED: PANTOPRAZOLE SODIUM 40 MG VIAL ONE (17:55)
[2016-08-01 18:16] LABS: INR 0.99 (0.82-1.09); PROTHROMBIN TIME (PATIENT) 10.9 SEC (9.98-11.88)
[2016-08-01 18:21] LABS: ALBUMIN 2.6 g/dl (3.4-5.0); CALCIUM 8.6 mg/dL (8.5-10.1); MAGNESIUM 2.8 mg/dL (1.8-2.4)
[2016-08-01 18:28] LABS: BILIRUBIN,TOTAL 0.5 mg/dL (0.2-1.0); COCKROFT - GAULT 2.89; TOT PROT 6.3 g/dl (6.4-8.2)
[2016-08-01 18:47] LABS: CREATININE 9.8 mg/dL (0.55-1.02)
[2016-08-01 19:59] LABS: URINE APPEARANCE SLCLOUDY; URINE BILIRUBIN NEGATIVE (NEGATIVE); URINE COLOR YELLOW; URINE GLUCOSE (UA) NEGATIVE (NEGATIVE); URINE KETONE NEGATIVE (NEGATIVE); URINE LEUK ESTERASE NEGATIVE (NEGATIVE); URINE NITRITE NEGATIVE (NEGATIVE); URINE UROBILINOGEN NEGATIVE E.U./dl (0.2-1.0)
[2016-08-01 20:00] LABS: URINE BLOOD 1+ (NEGATIVE); URINE PROTEIN 2+ (NEGATIVE)
[2016-08-01 20:03] LABS: URINE RBC 3 /hpf (0-3); URINE WBC 6 /hpf (3-5)
--- NOTE | 2016-08-01 21:57 | PN ---
<Damián Barajas - Last Filed: 08/01/16 21:57> Teaching Attending Note Name of Resident: Lorenzo Sanchez ATTENDING PHYSICIAN STATEMENT I saw and evaluated the patient. I reviewed the resident's note and discussed the case with the resident. I agree with the resident's findings and plan as documented. SUBJECTIVE: OBJECTIVE: ASSESSMENT AND PLAN: <Linette Brewer - Last Filed: 08/02/16 00:55> Teaching Attending Note ATTENDING PHYSICIAN STATEMENT I saw and evaluated the patient. I reviewed the resident's note and discussed the case with the resident. I agree with the resident's findings and plan as documented. SUBJECTIVE: 85 yo F with a PMHx HTN, HLD, DM, osteoporosis who presents with coffee ground emesis for two days with associated weakness. Also notes difficulty in ambulation, decreased PO intake and constipation. Recent biliary drain placed due to pancreatic cancer at [facility] in [place], [place] which the bag is full of dark brown liquid. Upon evaluation, patient is nonverbal. OBJECTIVE: Last Vital Signs Temp Pulse Resp BP Pulse Ox 98.5 F 100 H 18 121/41 98 08/01/16 23:33 08/01/16 23:33 08/01/16 23:33 08/01/16 23:33 08/01/16 23:33 GENERAL: AAO x 0, in no acute distress HEENT: Atraumatic. PERRLA, EOMI. Moist mucosa. No JVD LUNGS: No distress, clear to auscultation bilaterally HEART: Regular rate and rhythm, normal S1 and S2, no murmurs, rubs or gallops, peripheral pulses normal and equal bilaterally. ABDOMEN: Soft, nontender, normoactive bowel sounds. No guarding, no rebound. No masses EXTREMITIES: Normal inspection, Normal range of motion, no edema. No clubbing or Cyanosis. NEUROLOGICAL: Cranial nerves II through XII grossly intact. no focal sensorimotor deficits SKIN: Warm, Dry, normal turgor, no rashes or lesions noted. CBCD WBC 13.3 K/mm3 (4.0-10.0) H D 08/01/16 17:15 RBC 3.22 M/mm3 (3.60-5.2) L 08/01/16 17:15 Hgb 9.0 GM/dL (10.7-15.3) L 08/01/16 17:15 Hct 28.8 % (32.4-45.2) L 08/01/16 17:15 MCV 89.4 fl (80-96) 08/01/16 17:15 MCHC 31.3 g/dl (32.0-36.0) L 08/01/16 17:15 RDW 14.9 % (11.6-15.6) 08/01/16 17:15 Plt Count 211 K/MM3 (134-434) D 08/01/16 17:15 MPV 9.1 fl (7.5-11.1) D 08/01/16 17:15 CMP Sodium 140 mmol/L (136-145) 08/01/16 17:44 Potassium 5.1 mmol/L (3.5-5.1) D 08/01/16 17:44 Chloride 107 mmol/L (98-107) 08/01/16 17:44 Carbon Dioxide 16 mmol/L (21-32) L D 08/01/16 17:44 Anion Gap 17 (8-16) H 08/01/16 17:44 BUN 97 mg/dL (7-18) H D 08/01/16 17:44 Creatinine 9.8 mg/dL (0.55-1.02) H* D 08/01/16 17:44 Creat Clearance w eGFR 3.77 (>60) 08/01/16 17:44 Calcium 8.6 mg/dL (8.5-10.1) 08/01/16 17:44 Total Bilirubin 0.5 mg/dL (0.2-1.0) 08/01/16 17:44 AST 26 U/L (15-37) D 08/01/16 17:44 ALT 23 U/L (12-78) D 08/01/16 17:44 Alkaline Phosphatase 144 U/L (45-117) H D 08/01/16 17:44 Total Protein 6.3 g/dl (6.4-8.2) L 08/01/16 17:44 Albumin 2.6 g/dl (3.4-5.0) L 08/01/16 17:44 ASSESSMENT AND PLAN: 85 yo F with a PMHx HTN, HLD, DM, osteoporosis who presents with coffee ground emesis and acute renal failure. 1.) Coffee ground emesis. Upper GI bleed -Protonix GTT -Type and screen -Coags -NPO -STAT GI consult -PRBCs on hold -Too large for IVs BORE 2.) Acute Renal Failure on CKD --Nephrology consulted -Urine lytes -Renal US -Avoid nephrotoxins -Extremely gentle hydration avoid overload -No indication for urgent dialysis at this time 3.) DM -Sliding scale -NPO 4.) HTN -Hold meds DVT ppx -Moderate risk -SCDs due to GI bleed Documentation is prepared by Linette Brewer acting as medical facilities section director for Damián Barajas D.O.
--- NOTE | 2016-08-01 21:57 | PDOC ---
Attending Attestation - Resident Resident Name: Teresa Crawford - ED Attending Attestation I have performed the following: I have examined & evaluated the patient, The case was reviewed & discussed with the resident, I agree w/resident's findings & plan, Exceptions are as noted - HPI HPI: 08/01/16 21:53 Patient is an 85-year-old female with history of pancreatic cancer who presented to the ER by EMS After several episodes of coffee ground emesis, mild epigastric abdominal pain, generalized weakness and malaise. - Physicial Exam PE: 08/01/16 21:54 Patient is awake and alert, frail-appearing, hemodynamically stable. Conjunctiva are pale; tongue is covered with coffee-ground like material. Lungs are clear anteriorly abdominal exams reveal no focal deficits. There is a biliary drainage catheter to the right flank; - Medical Decision Making 08/01/16 21:54 Patient is an 85-year-old female with history of pancreatic cancer, status post biliary drainage catheter who presented to the ER with coffee-ground emesis and evidence of acute renal failure. Patient is hemodynamically stable. H&H is stable at this time. BUN/creatinine is consistent with acute renal failure likely prerenal in nature. Mccullough catheter was placed and after administration of 500 mL of normal saline, 400 mL of clear urine was obtained. Chest x-ray reveals no evidence of infiltrate or effusion. CT that and pelvis without contrast revealed presence of the drainage catheter, persistent enlargement of pancreatic head, and no evidence of hydronephrosis bilaterally. Patient has received Protonix IV immediately upon arrival. Will consult GI and nephrology. Will admit to noncardiac telemetry further evaluation and treatment.
--- NOTE | 2016-08-01 22:31 | HP ---
CHIEF COMPLAINT: vomiting PCP: HISTORY OF PRESENT ILLNESS: 85 y/o F w/PMH of HTN, HLD, DM, pancreatic ca, osteoporosis presents to the ER w / coffee ground emesis x4 over two days. Pt is non-verbal at time of interview and no family is present and history obtained from previous charts. Pt also has associated weakness, difficulty ambulating, decreased PO intake, and constipation. She recently had a biliary drain placed due to pancreatic cancer at [facility]. Collection in drain is dark brown in color and urine is also brown in color. Pt only nods head at questions. 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 ER course was notable for: (1) Protonix, NS, CXR, CT abd/pelvis (2) (3) PAST MEDICAL HISTORY: HTN, HLD, DM, pancreatic ca, osteoporosis PAST SURGICAL HISTORY: biliary drain placement Social History: Smoking: no Alcohol: no Drugs: no Family History: NC Allergies No Known Allergies Allergy (Verified 08/01/16 16:42) HOME MEDICATIONS: Home Medications Medication Instructions Recorded Amlodipine Besylate [Norvasc -] 10 mg PO DAILY 06/03/16 Calcium Carbonate/Vitamin D3 1 each PO DAILY 06/03/16 [Calcium 600 + Vit D Tablet] Clopidogrel Bisulfate [Clopidogrel] 75 mg PO DAILY 06/03/16 Furosemide [Lasix] 20 mg PO DAILY 06/03/16 Losartan Potassium [Cozaar] 100 mg PO DAILY 06/03/16 Simvastatin [Zocor -] 20 mg PO HS 06/03/16 Insulin (Levemir) [Levemir Flexpen 20 units SQ DAILY MDD 20 U night 06/21/16 -] Insulin (Novolog) [Novolog Flexpen 0 units SQ ACHS MDD 7 U lunch time 06/21/16 -] Cyanocobalamin (Vitamin B-12) 2,500 mcg PO DAILY 08/01/16 [Vitamin B12] Multivitamins [Tab-A-Vit -] 1 tab PO DAILY 08/01/16 REVIEW OF SYSTEMS Pt non-verbal CONSTITUTIONAL: +generalized weakness, loss of appetite GASTROINTESTINAL: +vomiting MUSCULOSKELETAL: +difficulty ambulating NEURO: +AMS PHYSICAL EXAMINATION Vital Signs - 24 hr 08/01/16 16:40 Temperature 97.5 F L Pulse Rate 84 Respiratory 17 Rate Blood Pressure 126/38 O2 Sat by Pulse 100 Oximetry (%) GENERAL: Awake, does not answer questions, only nods head. HEAD: Normal with no signs of trauma. EYES: extraocular movements intact, sclera anicteric, conjunctiva clear. No lid lag. EARS, NOSE, THROAT: Ears normal, nares patent. Dry mucous membranes. LUNGS: Auscultated anteriorly. Breath sounds equal, clear to auscultation bilaterally HEART: Regular rate and rhythm, normal S1 and S2. 2/6 systolic murmur. ABDOMEN: Soft, nontender, not distended, normoactive bowel sounds, no guarding, no rebound, no masses. No hepatomegaly or splenomegaly. LOWER EXTREMITIES: warm, well-perfused. No calf tenderness. No peripheral edema. RECTAL: Could not perform as pt was not following instructions and could not position pt for exam. NEUROLOGICAL: AMS PSYCHIATRIC:AMS SKIN: Warm, dry Laboratory Results - last 24 hr 08/01/16 08/01/16 08/01/16 16:45 17:15 17:15 WBC 13.3 H D RBC 3.22 L Hgb 9.0 L Hct 28.8 L MCV 89.4 MCHC 31.3 L RDW 14.9 Plt Count 211 D MPV 9.1 D Neutrophils % 91.0 H Lymphocytes % 4.6 L D Monocytes % 3.9 Eosinophils % 0.2 Basophils % 0.3 INR Sodium Cancelled Potassium Cancelled Chloride Cancelled Carbon Dioxide Cancelled Anion Gap Cancelled BUN Cancelled Creatinine Cancelled Creat Clearance w eGFR Cancelled Random Glucose Cancelled Lactic Acid 0.7 Calcium Cancelled Magnesium Cancelled Total Bilirubin Cancelled AST Cancelled ALT Cancelled Alkaline Phosphatase Cancelled Total Protein Cancelled Albumin Cancelled Urine Color Urine Appearance Urine pH Urine Protein Urine Glucose (UA) Urine Ketones Urine Blood Urine Nitrite Urine Bilirubin Urine Urobilinogen Ur Leukocyte Esterase Urine RBC Urine WBC Ur Epithelial Cells Blood Type Antibody Screen 08/01/16 08/01/16 08/01/16 17:41 17:41 17:44 WBC RBC Hgb Hct MCV MCHC RDW Plt Count MPV Neutrophils % Lymphocytes % Monocytes % Eosinophils % Basophils % INR 0.99 Sodium 140 Potassium 5.1 D Chloride 107 Carbon Dioxide 16 L D Anion Gap 17 H BUN 97 H D Creatinine 9.8 H* D Creat Clearance w eGFR 3.77 Random Glucose 94 D Lactic Acid Calcium 8.6 Magnesium 2.8 H D Total Bilirubin 0.5 AST 26 D ALT 23 D Alkaline Phosphatase 144 H D Total Protein 6.3 L Albumin 2.6 L Urine Color Urine Appearance Urine pH Urine Protein Urine Glucose (UA) Urine Ketones Urine Blood Urine Nitrite Urine Bilirubin Urine Urobilinogen Ur Leukocyte Esterase Urine RBC Urine WBC Ur Epithelial Cells Blood Type O NEGATIVE Antibody Screen Negative 08/01/16 19:37 WBC RBC Hgb Hct MCV MCHC RDW Plt Count MPV Neutrophils % Lymphocytes % Monocytes % Eosinophils % Basophils % INR Sodium Potassium Chloride Carbon Dioxide Anion Gap BUN Creatinine Creat Clearance w eGFR Random Glucose Lactic Acid Calcium Magnesium Total Bilirubin AST ALT Alkaline Phosphatase Total Protein Albumin Urine Color Yellow Urine Appearance Slcloudy Urine pH 5.0 Urine Protein 2+ H Urine Glucose (UA) Negative Urine Ketones Negative Urine Blood 1+ H Urine Nitrite Negative Urine Bilirubin Negative Urine Urobilinogen Negative Ur Leukocyte Esterase Negative Urine RBC 3 Urine WBC 6 Ur Epithelial Cells Rare Blood Type Antibody Screen Imaging: CT abd: No signs of SBO, pigtail catheter in place in duodenum, gallbladder contracted, CBD not dilated, enlarged pancreatic head with mild stranding of the surrounding fat. No evidence of hydronephrosis. CXR: No sig interval change. No signs of active lung process Active Medications Pantoprazole Sodium 80 mg/ (Sodium Chloride) 100 mls @ 10 mls/hr IVPB Q10H [facility] Insulin Aspart (Novolog Vial Sliding Scale -) 1 vial SQ TIDAC [facility] PRN Reason: Protocol ASSESSMENT/PLAN: 85 y/o F w/PMH of HTN, HLD, DM, pancreatic ca, osteoporosis presents to the ER w / coffee ground emesis x4 over two days. Also found to have RANJANA on CKD. -Upper GI bleed -NPO -protonix drip -GI consulted -Monitor H/H -Transfuse if Hgb below 7.0 -RANJANA on CKD -baseline Cr ~1.2, currently 9.8, no need for dialysis at this time -urine lytes -Nephro consulted -Monitor Cr -AMS secondary to unknown etiology -monitor -Pancreatic cancer -GI consulted -As seen on CT, monitor catheter drainage -DM -BGM q8h, ISS q8h -Leukocytosis -likely reactive to upper GI bleed -DVT -SCDs -no heparin due to GI bleed -FEN -no fluids at this time, if needed only gentle hydration -monitor electrolytes, replete as needed -NPO -Dispo: -admit to m/s Visit type - Emergency Visit Emergency Visit: Yes ED Registration Date: 08/02/16 Care time: The patient presented to the Emergency Department on the above date and was hospitalized for further evaluation of their emergent condition. - New Patient This patient is new to me today: Yes Date on this admission: 08/06/16 - Critical Care Critical Care patient: No
[2016-08-02 00:10] LABS: URINE CREATININE 97.8 mg/dL (20-320)
[2016-08-02] MEDS ORDERED: PANTOPRAZOLE SODIUM 80 MG in SODIUM CHLORIDE 100 ML IVPB SCH (01:15)
[2016-08-02 07:07] LABS: BASOPHIL 0.2 % (0-2.0); EOSINOPHIL 0.1 % (0-4.5); MCH 29.2 pg (25.7-33.7); MCHC 32.1 g/dl (32.0-36.0); MEAN CELL VOLUME 90.8 fl (80-96); MEAN PLT VOLUME 9.1 fl (7.5-11.1); NEUTROPHILS 90.8 % (42.8-82.8); PLATELET COUNT 183 K/MM3 (134-434); RDW 15.2 % (11.6-15.6); WHITE BLOOD COUNT 11.7 K/mm3 (4.0-10.0)
[2016-08-02 07:41] LABS: ALBUMIN 2.3 g/dl (3.4-5.0)
[2016-08-02 07:54] LABS: BILIRUBIN,TOTAL 0.7 mg/dL (0.2-1.0); CALCIUM 7.9 mg/dL (8.5-10.1); COCKROFT - GAULT 2.8305; TOT PROT 5.6 g/dl (6.4-8.2)
--- NOTE | 2016-08-02 08:11 | PN ---
Physical Exam: SUBJECTIVE: Patient seen and examined at bed side this morning. She noded to every questions asked. Detailed history and ROS couldn't be obtained despite using the cyracom. Finger stick glucose this morning was 21, D50 was given and repeat BGM- 193mg/dl Later, while using the indonesian brake machine operator, tried to obtain information- patient was confused, didn't know where she was and why she was brought to the hospital. OBJECTIVE: Vital Signs Period Temp Pulse Resp BP Sys/Luo Pulse Ox Last 24 Hr 98.8 F 99 22 127/43 97-98 GENERAL: Elderly female, staring at the ceiling mostly, is awake, alert, and not oriented to time, place and person, in no acute distress. HEAD: Normal with no signs of trauma. EYES: EOM intact, pallor + but no icterus. ENT: Ears normal, dry mucous membranes. NECK: Trachea midline, full range of motion, supple. LUNGS: Breath sounds equal, clear to auscultation bilaterally, no wheezes, no crackles, no accessory muscle use. HEART: Regular rate and rhythm, S1, S2 with systolic murmur. ABDOMEN: Pig tail catheter in place, Soft, nontender, nondistended, normoactive bowel sounds, no guarding, no rebound, no hepatosplenomegaly, no masses. EXTREMITIES: 2+ pulses, warm, well-perfused, no edema. NEUROLOGICAL: Non verbal. Normal speech, gait not observed. PSYCH: Normal mood, normal affect. SKIN: Warm, dry, normal turgor, no rashes or lesions noted Laboratory Results - last 24 hr 08/02/16 08/02/16 05:35 05:35 WBC 11.7 H RBC 3.00 L Hgb 8.7 L Hct 27.2 L MCV 90.8 MCHC 32.1 RDW 15.2 Plt Count 183 MPV 9.1 Neutrophils % 90.8 H Lymphocytes % 4.5 L Monocytes % 4.4 Eosinophils % 0.1 Basophils % 0.2 Sodium 142 Potassium 5.2 H Chloride 112 H Carbon Dioxide 11 L D Anion Gap 19 H BUN 91 H Creat Clearance w eGFR 3.68 Calcium 7.9 L Total Bilirubin 0.7 D AST 25 ALT 20 Alkaline Phosphatase 126 H Total Protein 5.6 L Albumin 2.3 L Active Medications Generic Name Dose Route Start Last Admin Trade Name Freq PRN Reason Stop Dose Admin Pantoprazole Sodium 80 mg/ 100 mls @ 10 mls/hr 08/02/16 01:15 Sodium Chloride IVPB Q10H [facility] Insulin Aspart 1 vial 08/02/16 07:00 Novolog Vial Sliding Scale - SQ TIDAC [facility] Protocol 08/01/16 CT abd: No signs of SBO, pigtail catheter in place in duodenum, gallbladder contracted, CBD not dilated, enlarged pancreatic head with mild stranding of the surrounding fat. No evidence of hydronephrosis. 08/01/16 CXR: No sig interval change. No signs of active lung process ASSESSMENT/PLAN: Patient is a 85 year old female with PMH of Hypertension, Hyperlipidemia, Diabetes Mellitus, pancreatic ca, osteoporosis presents to the ER with coffee ground emesis x4 over two days. Also found to have RANJANA on CKD. # Acute on Chronic kidney injury Likely due to Acute Tubular Necrosis ( contrast induced, NSAID use for pain given the h/o pancreatic cancer, use of ARB, contrast? ) Creatinine 10, baseline 1.2; FeNa-4.1 ABG showed Metabolic acidosis Mccullough cather placed, strict I's and O's Nephrology consult appreciated, he recommended that temporary dialysis would be beneficial, hence started emergent dialysis. Patient's family members (Daughter and son were at bedside), they verbalized understanding and agreed to the plan. # Possible Upper GI bleed c/o 4 episodes of coffee ground emesis NPO On Protonix drip H/H 8.7/27.2, to transfuse PRBC if Hb < 7 gm/dl Started clear liquid diabetic diet GI consult appreciated Failed ERCP with a stent and attemped an IR drainage as per patients son-in- law son-in law Luigi [phone] Patient's discharge summary from [facility] attached in the file. # Altered mental status Could be due to uremia vs metastasis from pancreatic cancer Hopefully will improve after dialysis if it is renal cause # Pancreatic cancer- pig tail catheter in place draining yellow brownish fluid- 150mls Patients family mentioned she was being seen in [facility]. They said they were unsure whether to start her on chemotherapy considering her age. Consult placed for Dr. Cavazos. # Diabetes Mellitus- with hypoglycemia HbA1c ordered for am Was hypoglycemic this am- 21mg/dl---> after D50---> 193 mg/dl BGM Q2H Insulin sliding scale as directed only # FEN IV D5-1/2 NS @ 125mls/hr Electrolytes to be repeated Clear liquid diabetic diet # Prophylaxis For DVT: On Scd's, heparin not given due to GI bleed For GI: On Protonix drip # Code Status: Full Code # Dispo: Transfered from Tele to ICU. Duration of stay unknown. Illness, Investigation and Plan of care explained to the patient's family members (Daughter and son). They verbalized understanding. Daughter's info; Ms. CHAVEZ- [phone]. Tried to get the pharmacy phone number to confirm home medications, but patients family doesn't know which pharmacy she goes to. They will try to bring the information tomorrow. Case seen and discussed with Dr. Browning. Visit type - Emergency Visit Emergency Visit: Yes ED Registration Date: 08/02/16 Care time: The patient presented to the Emergency Department on the above date and was hospitalized for further evaluation of their emergent condition. - New Patient This patient is new to me today: Yes Date on this admission: 08/02/16 - Critical Care Critical Care patient: No
[2016-08-02] MEDS ORDERED: DEXTROSE 50%-WATER 50 ML DISP.SYRIN ONE (08:15)
[2016-08-02] MEDS ORDERED: SODIUM CHLORIDE 1,000 ML IV SCH (08:30)
[2016-08-02] MEDS ORDERED: DEXTROSE 50%-WATER 50 ML VIAL IVPUSH ONE (08:36)
[2016-08-02] MEDS: INSULIN SLIDING SCALE (NOVOLOG) 1 VIAL SQ SCH ×3 (08:40→18:07)
[2016-08-02] MEDS ORDERED: DEXTROSE 5%-0.45% SALINE 1,000 ML IV SCH ×2 (08:45)
--- NOTE | 2016-08-02 09:17 | CON.GI ---
Consult Consult Specialty:: GI Referred by:: Hospitalists Reason for Consultation:: Coffee ground emesis - History of Present Illness Chief Complaint: Urdu talking books library clerk utilized. Patient unable to give history. Confused History of Present Illness: 85 y/o woman admitted through [facility] ER for evaluation of coffee ground emesis. history ws obtained from the chart as the patient was unable to give a history despite using the aid of a Urdu Mental Tester. On a previous admission she had a CT scan 06/03/16 shows large pancreatic head, distended GB and dilated biliary tree). It appears as though she was discharged from that hospitalization and had ERCP 07/[address] Whittaker in [place] and then transferred to [facility] for biliary drain (external drain in place, likely placed radiographically, presumably because stenting could not be performed endoscopically during ERCP). It is presumed that she has pancreatic cancer. The ER attending Dr. Barajas told me last night that he tried reaching her compliance specialist and oncologist however he did not recieve a call back. There has Been no vomiting since admission. There has been no overt rectal bleeding or melena. - History Source History Provided By: Medical Record Limitations to Obtaining History: Dementia - Past Medical History Gastrointestinal: Yes: Other (presumed pancreatic cancer) Endocrine: Yes: Diabetes Mellitus - Alcohol/Substance Use Hx Alcohol Use: No - Smoking History Smoking history: Unknown if ever smoked Have you smoked in the past 12 months: No Aproximately how many cigarettes per day: 0 - Social History Usual Living Arrangement: Other (unable to obtain) Place of : Other ([place]) Home Medications - Allergies Allergies/Adverse Reactions: Allergies Allergy/AdvReac Type Severity Reaction Status Date / Time No Known Allergies Allergy Verified 08/01/16 16:42 - Home Medications Home Medications: Ambulatory Orders Amlodipine Besylate [Norvasc -] 10 mg PO DAILY 06/03/16 Calcium Carbonate/Vitamin D3 [Calcium 600 + Vit D Tablet] 1 each PO DAILY Clopidogrel Bisulfate [Clopidogrel] 75 mg PO DAILY 06/03/16 Furosemide [Lasix] 20 mg PO DAILY 06/03/16 Losartan Potassium [Cozaar] 100 mg PO DAILY 06/03/16 Simvastatin [Zocor -] 20 mg PO HS 06/03/16 Insulin (Levemir) [Levemir Flexpen -] 20 units SQ DAILY MDD 20 U night 06/21/16 Insulin (Novolog) [Novolog Flexpen -] 0 units SQ ACHS MDD 7 U lunch time Cyanocobalamin (Vitamin B-12) [Vitamin B12] 2,500 mcg PO DAILY 08/01/16 Multivitamins [Tab-A-Vit -] 1 tab PO DAILY 08/01/16 Family Disease History - Family Disease History Family History: Unable to Obtain Review of Systems Unable to obtain ROS, reason: Patient confused Physical Exam-GI Vital Signs: Vital Signs Temperature 98.2 F 08/02/16 08:00 Pulse Rate 94 H 08/02/16 08:00 Respiratory Rate 14 08/02/16 08:00 Blood Pressure 134/48 08/02/16 08:00 O2 Sat by Pulse Oximetry (%) 97 08/02/16 04:00 Constitutional: Yes: Calm Eyes: No: Sclera Icterus Cardiovascular: Yes: Regular Rate and Rhythm, Murmur (2/6) Respiratory: Yes: CTA Bilaterally Gastrointestinal Inspection: No: Distention ...Auscultate: Yes: Normoactive Bowel Sounds ...Palpate: No: Hepatomegaly, Splenomegaly, Tenderness ...Percussion: No: Tympanitic Edema: No Labs: CBC, BMP 08/02/16 05:35 08/02/16 05:35 INR, PTT INR 0.99 (0.82-1.09) 08/01/16 17:41 Problem List - Problems (1) Coffee ground emesis Assessment/Plan: Patient with baseline anemia, stable H/H compared to previous, no melena or overt rectal bleeding. Would monitor for now, advance to clears protonix 40mg IVPB daily ? need for continued plavix given that she is 85 years old with suspected malignancy Code(s): K92.0 - HEMATEMESIS (2) History of biliary stent insertion Assessment/Plan: The work-up and diagnosis of her pancreatic mass needs to be clarified as well as the ultimate plan for her. Unclear if they plan on internalizing her drain at some point. This will need to be clarified with the performing compliance specialist. Would try to contact her oncologist as well to see if there was a treatment plan in place or if palliative measures are the goal Code(s): Z98.890 - OTHER SPECIFIED POSTPROCEDURAL STATES (3) Hypoglycemia Assessment/Plan: Nurse was going to push 1 amp D50 as I was examining Ms. Ledbetter F/U per primary team Code(s): E16.2 - HYPOGLYCEMIA, UNSPECIFIED
[2016-08-02] MEDS ORDERED: PANTOPRAZOLE SODIUM 100 ML IVPB SCH (10:00)
[2016-08-02 10:19] LABS: ARTERIAL BLOOD GAS BASE EXCESS -15.9 meq/l (-2-2)
[2016-08-02 10:21] LABS: ARTERIAL BLOOD GAS pH 7.18 (7.35-7.45)
[2016-08-02 10:22] LABS: ALLENS TEST POSITIVE; ART PUNCT SITE RIGHT RADIAL; ARTERIAL BLOOD GAS HCO3 10.9 meq/L (22-26); LPM/O2% 21%; PT. ON O2? NO; TYPE OF O2 R/A
--- NOTE | 2016-08-02 10:27 | CONSULT ---
Consult - text type - Consultation Consultation Note: Renal Consult for Acute Renal Failure and Metabolic Acidosis This is a 85 year old woman with PMhx of Pancreatic Mass/lesion suspicious for Ca, Billiary obstruction s/p IR drain placement, Hypertension, Hyperlipidemia, DM who presented with N/V with coffee ground emesis and found to have BUN/Cr of 91/10. Pt is awake and alert but does not communicate event with a maltese edge banding off bearer. Spoke with son-in law Luigi [phone] who said that she was at [facility] where ERCP with stent placement was attempted an failued and then had IR drain placed. Denies being told about any Kidney Problems at that time. Last CT was 07-05 or 07-04 and unsure if she got contrast. Unclear if pt was taking NSAIDS at home for Abd pain. No fever, chills. Pt was given IVF in the ED with output improvement in renal function. PMhx: as above Allergies: NKDA Family Hx: NC Social hx: No T/A/D ROS: as per HPI, limited because of clinical status Home Medications Medication Instructions Recorded Amlodipine Besylate [Norvasc -] 10 mg PO DAILY 06/03/16 Calcium Carbonate/Vitamin D3 1 each PO DAILY 06/03/16 [Calcium 600 + Vit D Tablet] Clopidogrel Bisulfate [Clopidogrel] 75 mg PO DAILY 06/03/16 Furosemide [Lasix] 20 mg PO DAILY 06/03/16 Losartan Potassium [Cozaar] 100 mg PO DAILY 06/03/16 Simvastatin [Zocor -] 20 mg PO HS 06/03/16 Insulin (Levemir) [Levemir Flexpen 20 units SQ DAILY MDD 20 U night 06/21/16 -] Insulin (Novolog) [Novolog Flexpen 0 units SQ ACHS MDD 7 U lunch time 06/21/16 -] Cyanocobalamin (Vitamin B-12) 2,500 mcg PO DAILY 08/01/16 [Vitamin B12] Multivitamins [Tab-A-Vit -] 1 tab PO DAILY 08/01/16 Vital Signs Temperature 98.2 F 08/02/16 08:00 Pulse Rate 94 H 08/02/16 08:00 Respiratory Rate 14 08/02/16 08:00 Blood Pressure 134/48 08/02/16 08:00 O2 Sat by Pulse Oximetry (%) 97 08/02/16 04:00 Intake & Output 07/30/16 07/31/16 08/01/16 08/02/16 23:59 23:59 23:59 23:59 Intake Total 1100 30 Output Total 250 500 Balance 850 -470 Weight 100 lb Gen: NAD, awake but confused HEENT: NC/AT, MMM, No JVD CVS: RRR, No M/R Lungs: CTA, no rales or wheeze Abd: soft NT/ND Ext: No edema, clubbing or cyanosis : no bladder distension, hernández in place Neuro:awake and alert CBC, BMP 08/02/16 05:35 08/02/16 05:35 Laboratory Tests 08/02/16 05:35 Calcium 7.9 L Albumin 2.3 L Current Medications Pantoprazole Sodium (Protonix 40mg Ivpb (Pre-Docked)) 100 mls @ 200 mls/hr IVPB DAILY [facility] Sodium Bicarbonate 150 meq/ (Dextrose) 1,150 mls @ 125 mls/hr IV .Q8H [facility] Insulin Aspart (Novolog Vial Sliding Scale -) 1 vial SQ TIDAC [facility] PRN Reason: Protocol Last Admin: 08/02/16 08:40 Dose: Not Given A/P 85 year old woman with PMhx of Pancreatic Mass/lesion suspicious for Ca, Billiary obstruction s/p IR drain placement, Hypertension, Hyperlipidemia, DM who presented with N/V with coffee ground emesis and found to have BUN/Cr of 91/ 10. #Acute on Chronic Renal Failure with acidosis and suspected uremia in setting of AMS Cr was 1.1 on 06-25-2016 Etiology uncertain but likely ATN (possible NSAID use, Contrast exposure, ARB, high FeNa) CT of the Abd showed no Hydronephrosis Ph is 7.18 with anion gap metabolic acidosis from renal failure (normal Lactic acid) Start Bicarb gtt will need urgent HD as pt with worsening renal function and metabolic acidosis despite IVF Discussed HD with son-in-law who will talk to the rest of the family dose all meds for Cr Cl less then 10 given that it is likely ATN anticipate improvement in renal function but will acidosis and uremia to be stabilized in the interim avoid diuretics/CODY/ARB at this time #N/V/Coffee Ground Emesis/Anemia on PPI GI following Trend H/H Transfsue as per protocol #Pancreatic Mass with billiary obstruction Drain in place family to decide on further management Thank you will follow Jean Tejeda DO
[2016-08-02] MEDS ORDERED: DEXTROSE 5%-WATER - 1,000 ML with SODIUM BICARBONATE 8.4% - 150 MEQ IV SCH (10:30)
--- NOTE | 2016-08-02 10:32 | EKG ---
Test Reason : Blood Pressure : / mmHG Vent. Rate : 092 BPM Atrial Rate : 092 BPM P-R Int : 142 ms QRS Dur : 112 ms QT Int : 390 ms P-R-T Axes : 066 -27 038 degrees QTc Int : 482 ms POOR DATA QUALITY, INTERPRETATION MAY BE ADVERSELY AFFECTED NORMAL SINUS RHYTHM POSSIBLE LEFT ATRIAL ENLARGEMENT RIGHT BUNDLE BRANCH BLOCK LEFT VENTRICULAR HYPERTROPHY CANNOT RULE OUT SEPTAL INFARCT (CITED ON OR BEFORE 03-JUN-2016) ABNORMAL ECG WHEN COMPARED WITH ECG OF 21-JUN-2016 17:58, NO SIGNIFICANT CHANGE WAS FOUND Confirmed by RIP COUGHLIN MD ([id number]) on 08/02/2016 10:31:41 AM Referred By: Confirmed By:RIP COUGHLIN MD
[2016-08-02] MEDS: SODIUM BICARBONATE 8.4% - 150 MEQ in DEXTROSE 5%-WATER - 1,000 ML IV SCH ×2 (12:30→20:30)
--- NOTE | 2016-08-02 12:39 | PN ---
Physical Exam: SUBJECTIVE: Patient seen and examined OBJECTIVE: Vital Signs Period Temp Pulse Resp BP Sys/Luo Pulse Ox Last 24 Hr 97.3 F-98.8 F 94-99 14-22 127-145/43-52 96-98 GENERAL: The patient is awake, alert, and fully oriented, in no acute distress. HEAD: Normal with no signs of trauma. EYES: PERRL, extraocular movements intact, sclera anicteric, conjunctiva clear. No ptosis. ENT: Ears normal, nares patent, oropharynx clear without exudates, moist mucous membranes. NECK: Trachea midline, full range of motion, supple. LUNGS: Breath sounds equal, clear to auscultation bilaterally, no wheezes, no crackles, no accessory muscle use. HEART: Regular rate and rhythm, S1, S2 without murmur, rub or gallop. ABDOMEN: Soft, nontender, nondistended, normoactive bowel sounds, no guarding, no rebound, no hepatosplenomegaly, no masses. EXTREMITIES: 2+ pulses, warm, well-perfused, no edema. NEUROLOGICAL: Cranial nerves II through XII grossly intact. Normal speech, gait not observed. PSYCH: Normal mood, normal affect. SKIN: Warm, dry, normal turgor, no rashes or lesions noted Laboratory Results - last 24 hr 08/02/16 08/02/16 08/02/16 05:35 05:35 08:29 WBC 11.7 H RBC 3.00 L Hgb 8.7 L Hct 27.2 L MCV 90.8 MCHC 32.1 RDW 15.2 Plt Count 183 MPV 9.1 Neutrophils % 90.8 H Lymphocytes % 4.5 L Monocytes % 4.4 Eosinophils % 0.1 Basophils % 0.2 Puncture Site ABG pH ABG pCO2 at Pt Temp ABG pO2 at Pt Temp ABG HCO3 ABG O2 Sat (Measured) ABG O2 Content ABG Base Excess Chirag Test O2 Delivery Device Oxygen Flow Rate PEEP Sodium 142 Potassium 5.2 H Chloride 112 H Carbon Dioxide 11 L D Anion Gap 19 H BUN 91 H Creatinine 10.0 H* Creat Clearance w eGFR 3.68 POC Glucometer 193 Random Glucose 21 L* D Calcium 7.9 L Total Bilirubin 0.7 D AST 25 ALT 20 Alkaline Phosphatase 126 H Total Protein 5.6 L Albumin 2.3 L 08/02/16 08/02/16 10:15 11:27 WBC RBC Hgb Hct MCV MCHC RDW Plt Count MPV Neutrophils % Lymphocytes % Monocytes % Eosinophils % Basophils % Puncture Site Right radial ABG pH 7.18 L* D ABG pCO2 at Pt Temp 30.2 L D ABG pO2 at Pt Temp 106.0 H D ABG HCO3 10.9 L* ABG O2 Sat (Measured) 97.0 ABG O2 Content 10.7 L ABG Base Excess -15.9 L* Chirag Test Positive O2 Delivery Device R/a Oxygen Flow Rate 21% PEEP 0.0 Sodium Potassium Chloride Carbon Dioxide Anion Gap BUN Creatinine Creat Clearance w eGFR POC Glucometer 177 Random Glucose Calcium Total Bilirubin AST ALT Alkaline Phosphatase Total Protein Albumin Active Medications Generic Name Dose Route Start Last Admin Trade Name Markq PRN Reason Stop Dose Admin Pantoprazole Sodium 100 mls @ 200 mls/hr 08/02/16 10:00 08/02/16 10:44 Protonix 40mg Ivpb (Pre-Docked) IVPB 200 mls/hr DAILY VERONICA Administration Sodium Bicarbonate 150 meq/ 1,150 mls @ 125 mls/hr 08/02/16 10:55 Dextrose IV Q9H VERONICA Insulin Aspart 1 vial 08/02/16 07:00 08/02/16 11:50 Novolog Vial Sliding Scale - SQ Not Given TIDAC VERONICA Protocol ASSESSMENT/PLAN:
[2016-08-02] MEDS ORDERED: LIDOCAINE HCL/PF 2% SDV 5ML VIAL ONE (13:28)
[2016-08-02] MEDS ORDERED: LIDOCAINE HCL 1%, 10 MG/ML (50 mL VIAL) SQ ONE ×2 (13:45→13:47)
--- NOTE | 2016-08-02 14:50 | PROC ---
Central Line Insertion Indication: Other (Acute HD ) Risks and Benefits Explained: Yes Consent on Chart: Yes Central Line: Dialysis Cath, Dual Lumen Anesthesia: 1% Lidocaine Sterile Technique: Yes Ultrasound Guided Assistance: Yes Position: Right Femoral Post Insertion: Yes: Other Sterile Dressing Applied: Yes
--- NOTE | 2016-08-02 14:58 | PN ---
Teaching Attending Note Name of Resident: Mario lBas ATTENDING PHYSICIAN STATEMENT I saw and evaluated the patient. I reviewed the resident's note and discussed the case with the resident. I agree with the resident's findings and plan as documented. SUBJECTIVE: Patient seen and examined in the ICU. Admitted via the ER due to weakness, difficulty ambulating, and decreased PO intake. Apparently she was recently admitted to another hospital where a biliary drain was placed due to pancreatic cancer. Now transferred to the ICU due to ARF with severe metabolic acidosis. She was also found to have AMS when she is apparently AAO x 3. Intake & Output 07/30/16 07/31/16 08/01/16 08/02/16 23:59 23:59 23:59 23:59 Intake Total 1100 30 Output Total 250 500 Balance 850 -470 Weight 100 lb Last Vital Signs Temp Pulse Resp BP Pulse Ox 97.7 F 97 H 18 151/53 100 08/02/16 11:30 08/02/16 14:20 08/02/16 14:20 08/02/16 14:20 08/02/16 12:00 Active Medications Sodium Bicarbonate 150 meq/ (Dextrose) 1,150 mls @ 125 mls/hr IV Q9H VERONICA Last Admin: 08/02/16 12:30 Dose: 125 mls/hr Pantoprazole Sodium (Protonix 40mg Ivpb (Pre-Docked)) 100 mls @ 200 mls/hr IVPB DAILY VERONICA Insulin Aspart (Novolog Vial Sliding Scale -) 1 vial SQ TIDAC VERONICA PRN Reason: Protocol GENERAL: Awake, NAD HEAD: Normal with no signs of trauma. EYES: sclera anicteric, conjunctiva clear. No lid lag. EARS, NOSE, THROAT: Ears normal, nares patent. Dry mucous membranes. LUNGS: Auscultated anteriorly. Breath sounds equal, clear to auscultation bilaterally HEART: Regular rate and rhythm, normal S1 and S2. 2/6 systolic murmur. ABDOMEN: Soft, nontender, not distended, normoactive bowel sounds, no guarding, no rebound, no masses. No hepatomegaly or splenomegaly. LOWER EXTREMITIES: warm, well-perfused. No calf tenderness. No peripheral edema. NEUROLOGICAL: Non-focal, change in mentation PSYCHIATRIC:AMS SKIN: Warm, dry Laboratory Results - last 24 hr 08/01/16 08/01/16 08/01/16 16:45 17:15 17:15 WBC 13.3 H D RBC 3.22 L Hgb 9.0 L Hct 28.8 L MCV 89.4 MCHC 31.3 L RDW 14.9 Plt Count 211 D MPV 9.1 D Neutrophils % 91.0 H Lymphocytes % 4.6 L D Monocytes % 3.9 Eosinophils % 0.2 Basophils % 0.3 INR Puncture Site ABG pH ABG pCO2 at Pt Temp ABG pO2 at Pt Temp ABG HCO3 ABG O2 Sat (Measured) ABG O2 Content ABG Base Excess Chirag Test O2 Delivery Device Oxygen Flow Rate PEEP Sodium Cancelled Potassium Cancelled Chloride Cancelled Carbon Dioxide Cancelled Anion Gap Cancelled BUN Cancelled Creatinine Cancelled Creat Clearance w eGFR Cancelled POC Glucometer Random Glucose Cancelled Lactic Acid 0.7 Calcium Cancelled Magnesium Cancelled Total Bilirubin Cancelled AST Cancelled ALT Cancelled Alkaline Phosphatase Cancelled Total Protein Cancelled Albumin Cancelled Urine Color Urine Appearance Urine pH Ur Specific [place] Urine Protein Urine Glucose (UA) Urine Ketones Urine Blood Urine Nitrite Urine Bilirubin Urine Urobilinogen Ur Leukocyte Esterase Urine RBC Urine WBC Ur Epithelial Cells Ur Random Sodium Ur Random Potassium Ur Random Chloride Urine Creatinine Blood Type Antibody Screen 08/01/16 08/01/16 08/01/16 17:41 17:41 17:44 WBC RBC Hgb Hct MCV MCHC RDW Plt Count MPV Neutrophils % Lymphocytes % Monocytes % Eosinophils % Basophils % INR 0.99 Puncture Site ABG pH ABG pCO2 at Pt Temp ABG pO2 at Pt Temp ABG HCO3 ABG O2 Sat (Measured) ABG O2 Content ABG Base Excess Chirag Test O2 Delivery Device Oxygen Flow Rate PEEP Sodium 140 Potassium 5.1 D Chloride 107 Carbon Dioxide 16 L D Anion Gap 17 H BUN 97 H D Creatinine 9.8 H* D Creat Clearance w eGFR 3.77 POC Glucometer Random Glucose 94 D Lactic Acid Calcium 8.6 Magnesium 2.8 H D Total Bilirubin 0.5 AST 26 D ALT 23 D Alkaline Phosphatase 144 H D Total Protein 6.3 L Albumin 2.6 L Urine Color Urine Appearance Urine pH Ur Specific [place] Urine Protein Urine Glucose (UA) Urine Ketones Urine Blood Urine Nitrite Urine Bilirubin Urine Urobilinogen Ur Leukocyte Esterase Urine RBC Urine WBC Ur Epithelial Cells Ur Random Sodium Ur Random Potassium Ur Random Chloride Urine Creatinine Blood Type O NEGATIVE Antibody Screen Negative 08/01/16 08/01/16 08/02/16 19:37 23:30 05:35 WBC 11.7 H RBC 3.00 L Hgb 8.7 L Hct 27.2 L MCV 90.8 MCHC 32.1 RDW 15.2 Plt Count 183 MPV 9.1 Neutrophils % 90.8 H Lymphocytes % 4.5 L Monocytes % 4.4 Eosinophils % 0.1 Basophils % 0.2 INR Puncture Site ABG pH ABG pCO2 at Pt Temp ABG pO2 at Pt Temp ABG HCO3 ABG O2 Sat (Measured) ABG O2 Content ABG Base Excess Ch[place]ag Test O2 Delivery Device Oxygen Flow Rate PEEP Sodium Potassium Chloride Carbon Dioxide Anion Gap BUN Creatinine Creat Clearance w eGFR POC Glucometer Random Glucose Lactic Acid Calcium Magnesium Total Bilirubin AST ALT Alkaline Phosphatase Total Protein Albumin Urine Color Yellow Urine Appearance Slcloudy Urine pH 5.0 Ur Specific [place] 1.020 Urine Protein 2+ H Urine Glucose (UA) Negative Urine Ketones Negative Urine Blood 1+ H Urine Nitrite Negative Urine Bilirubin Negative Urine Urobilinogen Negative Ur Leukocyte Esterase Negative Urine RBC 3 Urine WBC 6 Ur Epithelial Cells Rare Ur Random Sodium 57 Ur Random Potassium 19.5 Ur Random Chloride 55 Urine Creatinine 97.8 Blood Type Antibody Screen 08/02/16 08/02/16 08/02/16 05:35 08:29 10:15 WBC RBC Hgb Hct MCV MCHC RDW Plt Count MPV Neutrophils % Lymphocytes % Monocytes % Eosinophils % Basophils % INR Puncture Site Right radial ABG pH 7.18 L* D ABG pCO2 at Pt Temp 30.2 L D ABG pO2 at Pt Temp 106.0 H D ABG HCO3 10.9 L* ABG O2 Sat (Measured) 97.0 ABG O2 Content 10.7 L ABG Base Excess -15.9 L* Chirag Test Positive O2 Delivery Device R/a Oxygen Flow Rate 21% PEEP 0.0 Sodium 142 Potassium 5.2 H Chloride 112 H Carbon Dioxide 11 L D Anion Gap 19 H BUN 91 H Creatinine 10.0 H* Creat Clearance w eGFR 3.68 POC Glucometer 193 Random Glucose 21 L* D Lactic Acid Calcium 7.9 L Magnesium Total Bilirubin 0.7 D AST 25 ALT 20 Alkaline Phosphatase 126 H Total Protein 5.6 L Albumin 2.3 L Urine Color Urine Appearance Urine pH Ur Specific [place] Urine Protein Urine Glucose (UA) Urine Ketones Urine Blood Urine Nitrite Urine Bilirubin Urine Urobilinogen Ur Leukocyte Esterase Urine RBC Urine WBC Ur Epithelial Cells Ur Random Sodium Ur Random Potassium Ur Random Chloride Urine Creatinine Blood Type Antibody Screen 08/02/16 08/02/16 11:27 14:03 WBC RBC Hgb Hct MCV MCHC RDW Plt Count MPV Neutrophils % Lymphocytes % Monocytes % Eosinophils % Basophils % INR Puncture Site ABG pH ABG pCO2 at Pt Temp ABG pO2 at Pt Temp ABG HCO3 ABG O2 Sat (Measured) ABG O2 Content ABG Base Excess Ch[place]ag Test O2 Delivery Device Oxygen Flow Rate PEEP Sodium Potassium Chloride Carbon Dioxide Anion Gap BUN Creatinine Creat Clearance w eGFR POC Glucometer [phone] Random Glucose Lactic Acid Calcium Magnesium Total Bilirubin AST ALT Alkaline Phosphatase Total Protein Albumin Urine Color Urine Appearance Urine pH Ur Specific [place] Urine Protein Urine Glucose (UA) Urine Ketones Urine Blood Urine Nitrite Urine Bilirubin Urine Urobilinogen Ur Leukocyte Esterase Urine RBC Urine WBC Ur Epithelial Cells Ur Random Sodium Ur Random Potassium Ur Random Chloride Urine Creatinine Blood Type Antibody Screen CT abdomen: No signs of SBO, pigtail catheter in place in duodenum, gallbladder contracted, CBD not dilated, enlarged pancreatic head with mild stranding of the surrounding fat. No evidence of hydronephrosis. CXR: No signs of active lung process ASSESSMENT/PLAN: ARF on CKD HTN HLD DM Pancreatic CA Osteoporosis (?) GI Bleed : coffee ground emesis AMS -> (?) Due to Uremia PLAN: Vascular access inserted for acute HD In the right femoral vein Strict I&O PPI Normal transfusion thresholds IVF GI evaluation Follow [facility] ICU monitoring Dr Thomas Critical care time spent in reviewing chart, evaluating patient and formulating plan 40 min
--- NOTE | 2016-08-02 15:20 | CONSULT ---
Consultation: REQUESTING PROVIDER: CONSULT REQUEST: We have been asked to medically evaluate this patient for ICU admission. HISTORY OF PRESENT ILLNESS: 85 yr old Khmer speaking woman with biliary drain, enlarged pancreatic head, HTN, HLD, DM, osteoporosis, presented to the ED with coffee ground emesis for two days. Transferred to ICU for AMS, RANJANA and metabolic acidosis requiring emergent dialysis. Patient smiles and nods at everything, follows simple commands when shown what to do. makes eye contact and tracks. repeated one word in mongolian (thank you), otherwise did not speak. additional history obtained from chart review. REVIEW OF SYSTEMS: unable to complete. PHYSICAL EXAMINATION Vital Signs - 24 hr 08/02/16 08/02/16 08/02/16 02:37 04:00 08:00 Temperature 98.8 F 97.3 F L 98.2 F Pulse Rate 97 H 94 H Pulse Rate [ 99 H Apical] Respiratory 22 20 14 Rate Blood Pressure 136/52 134/48 Blood Pressure 127/43 [Right Arm] O2 Sat by Pulse 98 97 Oximetry (%) 08/02/16 08/02/16 08/02/16 09:00 11:30 12:00 Temperature 97.7 F Pulse Rate 98 H Pulse Rate [ Apical] Respiratory 16 Rate Blood Pressure 145/45 Blood Pressure [Right Arm] O2 Sat by Pulse 96 100 Oximetry (%) 08/02/16 08/02/16 08/02/16 13:57 14:00 14:20 Temperature Pulse Rate 91 H 98 H 97 H Pulse Rate [ Apical] Respiratory 14 18 18 Rate Blood Pressure 133/51 140/45 151/53 Blood Pressure [Right Arm] O2 Sat by Pulse Oximetry (%) GENERAL: Awake, alert, and in no acute distress. HEAD: Normal with no signs of trauma. EYES: Pupils equal, round and reactive to light, extraocular movements intact, sclera anicteric, conjunctiva clear. No lid lag. EARS, NOSE, THROAT: nares patent, oropharynx clear without exudates, poor dentition. Moist mucous membranes. NECK: supple without lymphadenopathy, JVD, or masses. LUNGS: Breath sounds equal, clear to auscultation bilaterally. No wheezes, and no crackles. No accessory muscle use. HEART: Regular rate and rhythm, normal S1 and S2 with systolic murmur. ABDOMEN: Soft, tender in right and left lower quadrants, not distended, normoactive bowel sounds, no guarding. MUSCULOSKELETAL: decreased range on motion at b/l hip to abduction, No bony deformities. UPPER EXTREMITIES: 2+ radial pulses, warm, well-perfused. No cyanosis. No peripheral edema. LOWER EXTREMITIES: + dp pulses, warm, well-perfused. right calf tenderness without erythema/edema, No peripheral edema. NEUROLOGICAL: Normal speech. moving all extremities freely, muscle tone intact in arms and b/l LE, facial symmetry. PSYCHIATRIC: Good eye contact. calm. Laboratory Results - last 24 hr 08/02/16 08/02/16 08/02/16 05:35 05:35 08:29 WBC 11.7 H RBC 3.00 L Hgb 8.7 L Hct 27.2 L MCV 90.8 MCHC 32.1 RDW 15.2 Plt Count 183 MPV 9.1 Neutrophils % 90.8 H Lymphocytes % 4.5 L Monocytes % 4.4 Eosinophils % 0.1 Basophils % 0.2 Puncture Site ABG pH ABG pCO2 at Pt Temp ABG pO2 at Pt Temp ABG HCO3 ABG O2 Sat (Measured) ABG O2 Content ABG Base Excess Chirag Test O2 Delivery Device Oxygen Flow Rate PEEP Sodium 142 Potassium 5.2 H Chloride 112 H Carbon Dioxide 11 L D Anion Gap 19 H BUN 91 H Creatinine 10.0 H* Creat Clearance w eGFR 3.68 POC Glucometer 193 Random Glucose 21 L* D Calcium 7.9 L Total Bilirubin 0.7 D AST 25 ALT 20 Alkaline Phosphatase 126 H Total Protein 5.6 L Albumin 2.3 L 08/02/16 08/02/16 08/02/16 10:15 11:27 14:03 WBC RBC Hgb Hct MCV MCHC RDW Plt Count MPV Neutrophils % Lymphocytes % Monocytes % Eosinophils % Basophils % Puncture Site Right radial ABG pH 7.18 L* D ABG pCO2 at Pt Temp 30.2 L D ABG pO2 at Pt Temp 106.0 H D ABG HCO3 10.9 L* ABG O2 Sat (Measured) 97.0 ABG O2 Content 10.7 L ABG Base Excess -15.9 L* Chirag Test Positive O2 Delivery Device R/a Oxygen Flow Rate 21% PEEP 0.0 Sodium Potassium Chloride Carbon Dioxide Anion Gap BUN Creatinine Creat Clearance w eGFR POC Glucometer [phone] Random Glucose Calcium Total Bilirubin AST ALT Alkaline Phosphatase Total Protein Albumin Active Medications Generic Name Dose Route Start Last Admin Trade Name Freq PRN Reason Stop Dose Admin Sodium Bicarbonate 150 meq/ 1,150 mls @ 125 mls/hr 08/02/16 10:55 08/02/16 12: 30 Dextrose IV 125 mls/hr Q9H VERONICA Administration Pantoprazole Sodium 100 mls @ 200 mls/hr 08/03/16 10:00 Protonix 40mg Ivpb (Pre-Docked) IVPB DAILY [facility] Insulin Aspart 1 vial 08/02/16 16:30 Novolog Vial Sliding Scale - SQ TIDAC [facility] Protocol ASSESSMENT/PLAN: 85 yr old woman with DM, HTN, renal insufficiency, recently found to have pancreatic mass(work-up pending), with biliary drain admitted for coffee ground emesis transferred to ICU for metabolic acidosis, RANJANA and AMS. Renal RANJANA/anion gap metabolic acidosis - likely ATN in setting of arb/likely contrast use family consented for shiley placement and emergent dialysis today and tomorrow sodium bicarb drip 150meq q9h IVPB avoid nephrotoxic medications hernández in place to monitor urine output consult: dr. das, note appreciated Neurological Encephalopathy likely caused by uremia, monitor for improvement post-dialysis. patient at baseline is alert/oriented Hematology/oncology Pancreatic mass - work-up pending to deteremine etiology leucocytosis trending down, pt afebrile, NGTD in bld cx, urine cx pending(ua with lek est negt), monitor off abx for now GI Biliary drain - found to have CBD and distended gallbladder, drain placed at [facility], will attempt to reach gastroenterlogist for further details no repeat episodes of emesis protonix daily consult: dr. melgar Endocrine Hypoglycemic on Telemery, s/p D50, currently in the ICU, tolerating liquid diet. BGM >200. hypoglycemia likely due to poor po intake/vomiting in elderly on home insulin monitor BGM ACHS, NISS ACHS Cardiovascular hold home medications for HTN (losartan, lasix, norvasc) hold clopidogrel Infectious Disease bld CX NGTD, monitor off abx Diet; liquid diet DVT: SCD's Dispo: We will continue to follow the patient. Thank you for this consultative opportunity. Visit type - Emergency Visit Emergency Visit: No - New Patient This patient is new to me today: Yes Date on this admission: 08/03/16 - Critical Care Critical Care patient: Yes Total Critical Care Time (in minutes): 37 Critical Care Statement: The care of this patient involved high complexity decision making to prevent further life threatening deterioration of the patient 's condition and/or to evalute & treat vital organ system(s) failure or risk of failure.
--- NOTE | 2016-08-02 18:48 | CONSULT ---
Consult - text type - Consultation Consultation Note: Patient seen and examined This is an 85 yo F with PMH of gastritis (on egd 04/18/12), recently diagnosed pancreatic CA (CT abd here 06/03/16 shows large pancreatic head, distended GB and dilated biliary tree), also had ERCP 07/[address] Whittaker, then xferred to [facility] for biliary drain due to pancreatic CA, who now presents here after 4 episodes of coffee ground emesis over 2 days. over the past few days she has been feeling week, has not been able to ambulate, has had decreased memory, has not been eating or having BM. She had not had f/c. Her R biliady drain bag is full of dark brown liquid. These symptoms have not occured before. At baseline patient live alone, is mentally sharp and ambulates. SHe has an aid. - Past Medical History Diabetes: Yes HTN: Yes Hypercholesterolemia: Yes - Surgical History Appendectomy: Yes - Psycho/Social/Smoking Cessation Hx Smoking History: Never smoked - Past Medical History Allergies/Adverse Reactions: Allergies Allergy/AdvReac Type Severity Reaction Status Date / Time No Known Allergies Allergy Verified 08/01/16 16:42 Home Medications: Ambulatory Orders Amlodipine Besylate [Norvasc -] 10 mg PO DAILY 06/03/16 Calcium Carbonate/Vitamin D3 [Calcium 600 + Vit D Tablet] 1 each PO DAILY Clopidogrel Bisulfate [Clopidogrel] 75 mg PO DAILY 06/03/16 Furosemide [Lasix] 20 mg PO DAILY 06/03/16 Losartan Potassium [Cozaar] 100 mg PO DAILY 06/03/16 Simvastatin [Zocor -] 20 mg PO HS 06/03/16 Insulin (Levemir) [Levemir Flexpen -] 20 units SQ DAILY MDD 20 U night 06/21/16 Insulin (Novolog) [Novolog Flexpen -] 0 units SQ ACHS MDD 7 U lunch time Cyanocobalamin (Vitamin B-12) [Vitamin B12] 2,500 mcg PO DAILY 08/01/16 Multivitamins [Tab-A-Vit -] 1 tab PO DAILY 08/01/16 Home Medication List Medication Instructions Recorded Confirmed Type Amlodipine Besylate [Norvasc -] 10 mg PO DAILY 06/03/16 08/01/16 History Calcium Carbonate/Vitamin D3 1 each PO DAILY 06/03/16 08/01/16 History [Calcium 600 + Vit D Tablet] Clopidogrel Bisulfate [Clopidogrel] 75 mg PO DAILY 06/03/16 06/21/16 History Furosemide [Lasix] 20 mg PO DAILY 06/03/16 08/01/16 History Losartan Potassium [Cozaar] 100 mg PO DAILY 06/03/16 08/01/16 History Simvastatin [Zocor -] 20 mg PO HS 06/03/16 08/01/16 History Insulin (Levemir) [Levemir Flexpen 20 units SQ DAILY MDD 20 U night 06/21/1609/10 History -] Insulin (Novolog) [Novolog Flexpen 0 units SQ ACHS MDD 7 U lunch time 06/21/16 08/01/16 History -] Cyanocobalamin (Vitamin B-12) 2,500 mcg PO DAILY 08/01/16 08/01/16 History [Vitamin B12] Multivitamins [Tab-A-Vit -] 1 tab PO DAILY 08/01/16 08/01/16 History Active Medications Generic Name Dose Route Start Last Admin Trade Name Markq PRN Reason Stop Dose Admin Heparin Sodium (Porcine) 1,000 unit 08/03/16 06:00 Heparin - IVPUSH 08/03/16 06:01 ONCE ONE Sodium Bicarbonate 150 meq/ 1,150 mls @ 125 mls/hr 08/02/16 10:55 08/03/16 07: 12 Dextrose IV 125 mls/hr Q9H VERONICA Administration Pantoprazole Sodium 100 mls @ 200 mls/hr 08/03/16 10:00 08/03/16 09:44 Protonix 40mg Ivpb (Pre-Docked) IVPB 200 mls/hr DAILY VERONICA Administration Insulin Aspart 1 vial 08/02/16 16:30 08/03/16 07:13 Novolog Vial Sliding Scale - SQ 4 units TIDAC VERONICA Administration Protocol Last Vital Signs Temp Pulse Resp BP Pulse Ox 98.5 F 100 H 18 121/41 98 08/01/16 23:33 08/01/16 23:33 08/01/16 23:33 08/01/16 23:33 08/01/16 23:33 GENERAL: lethargic, alert, oriented to self, CACHECTIC, pale, appears dry PULM: bibasilar crackles GI: SOFT, DIFFUSELY MILDLY TENDER, NONDISTENDED, NORMOACTIVE BOWEL SOUNDS, MILD HEPATOMEGALY, NO MASS, r POSTERIOR CHOLECYSTOSTOMY TUBE IN PLACE, NONERYTHEMATOUS ENTRY SITE, CLEAN DRESSING, NEURO: CRANIAL NERVES GROSSLY INTACT SKIN: DECREASED TURGOR Laboratory Results 08/01/16 08/01/16 08/01/16 23:30 19:37 17:44 INR Sodium 140 Potassium 5.1 D Chloride 107 Carbon Dioxide 16 L D Anion Gap 17 H BUN 97 H D Creatinine 9.8 H* D Creat Clearance w eGFR 3.77 Random Glucose 94 D Lactic Acid Calcium 8.6 Magnesium 2.8 H D Total Bilirubin 0.5 AST 26 D ALT 23 D Alkaline Phosphatase 144 H D Total Protein 6.3 L Albumin 2.6 L Urine Color Yellow Urine Appearance Slcloudy Urine pH 5.0 Ur Specific [place] 1.020 Urine Protein 2+ H Urine Glucose (UA) Negative Urine Ketones Negative Urine Blood 1+ H Urine Nitrite Negative Urine Bilirubin Negative Urine Urobilinogen Negative Ur Leukocyte Esterase Negative Urine RBC 3 Urine WBC 6 Ur Epithelial Cells Rare Ur Random Sodium 57 Ur Random Potassium 19.5 Ur Random Chloride 55 Urine Creatinine 97.8 Blood Type Antibody Screen 08/01/16 08/01/16 08/01/16 17:41 17:41 17:15 INR 0.99 Sodium Potassium Chloride Carbon Dioxide Anion Gap BUN Creatinine Creat Clearance w eGFR Random Glucose Lactic Acid 0.7 Calcium Magnesium Total Bilirubin AST ALT Alkaline Phosphatase Total Protein Albumin Urine Color Urine Appearance Urine pH Ur Specific [place] Urine Protein Urine Glucose (UA) Urine Ketones Urine Blood Urine Nitrite Urine Bilirubin Urine Urobilinogen Ur Leukocyte Esterase Urine RBC Urine WBC Ur Epithelial Cells Ur Random Sodium Ur Random Potassium Ur Random Chloride Urine Creatinine Blood Type O NEGATIVE Antibody Screen Negative 08/01/16 16:45 INR Sodium Cancelled Potassium Cancelled Chloride Cancelled Carbon Dioxide Cancelled Anion Gap Cancelled BUN Cancelled Creatinine Cancelled Creat Clearance w eGFR Cancelled Random Glucose Cancelled Lactic Acid Calcium Cancelled Magnesium Cancelled Total Bilirubin Cancelled AST Cancelled ALT Cancelled Alkaline Phosphatase Cancelled Total Protein Cancelled Albumin Cancelled Urine Color Urine Appearance Urine pH Ur Specific [place] Urine Protein Urine Glucose (UA) Urine Ketones Urine Blood Urine Nitrite Urine Bilirubin Urine Urobilinogen Ur Leukocyte Esterase Urine RBC Urine WBC Ur Epithelial Cells Ur Random Sodium Ur Random Potassium Ur Random Chloride Urine Creatinine Blood Type Antibody Screen 08/01/16 17:15 RBC 3.22 L MCV 89.4 MCHC 31.3 L RDW 14.9 MPV 9.1 D Neutrophils % 91.0 H Lymphocytes % 4.6 L D Monocytes % 3.9 Eosinophils % 0.2 Basophils % 0.3 A/P 85 y/o patient with HTN/Hyperlipidemia/ DM, admitted with gi bleed/acute renal failure. Patient was being worked up for prominemt pancreatic head/mass/malignancy and had a biliary drain placed in [place] will need to contact oncologist in [place] regarding further details Being treated for gi bleed/renal failure will get palliative care team to arrange meeting
[2016-08-02] MEDS ORDERED: SODIUM BICARBONATE 8.4% 50 MEQ/50 ML VIAL ONE (20:13)
--- NOTE | 2016-08-02 21:19 | PN ---
Teaching Attending Note Name of Resident: Lawanda Baird ATTENDING PHYSICIAN STATEMENT I saw and evaluated the patient. I reviewed the resident's note and discussed the case with the resident. I agree with the resident's findings and plan as documented. SUBJECTIVE: Patient is a [place] lady , confused. OBJECTIVE: Vital Signs Temperature 98.6 F 08/02/16 16:00 Pulse Rate 115 H 08/02/16 18:02 Respiratory Rate 12 08/02/16 18:02 Blood Pressure 159/63 08/02/16 18:02 O2 Sat by Pulse Oximetry (%) 100 08/02/16 16:00 CBCD WBC 11.7 K/mm3 (4.0-10.0) H 08/02/16 05:35 RBC 3.00 M/mm3 (3.60-5.2) L 08/02/16 05:35 Hgb 8.7 GM/dL (10.7-15.3) L 08/02/16 05:35 Hct 27.2 % (32.4-45.2) L 08/02/16 05:35 MCV 90.8 fl (80-96) 08/02/16 05:35 MCHC 32.1 g/dl (32.0-36.0) 08/02/16 05:35 RDW 15.2 % (11.6-15.6) 08/02/16 05:35 Plt Count 183 K/MM3 (134-434) 08/02/16 05:35 MPV 9.1 fl (7.5-11.1) 08/02/16 05:35 CMP Sodium 142 mmol/L (136-145) 08/02/16 05:35 Potassium 5.2 mmol/L (3.5-5.1) H 08/02/16 05:35 Chloride 112 mmol/L (98-107) H 08/02/16 05:35 Carbon Dioxide 11 mmol/L (21-32) L D 08/02/16 05:35 Anion Gap 19 (8-16) H 08/02/16 05:35 BUN 91 mg/dL (7-18) H 08/02/16 05:35 Creatinine 10.0 mg/dL (0.55-1.02) H* 08/02/16 05:35 Creat Clearance w eGFR 3.68 (>60) 08/02/16 05:35 Random Glucose 21 mg/dL (74-106) L* D 08/02/16 05:35 Calcium 7.9 mg/dL (8.5-10.1) L 08/02/16 05:35 Total Bilirubin 0.7 mg/dL (0.2-1.0) D 08/02/16 05:35 AST 25 U/L (15-37) 08/02/16 05:35 ALT 20 U/L (12-78) 08/02/16 05:35 Alkaline Phosphatase 126 U/L (45-117) H 08/02/16 05:35 Total Protein 5.6 g/dl (6.4-8.2) L 08/02/16 05:35 Albumin 2.3 g/dl (3.4-5.0) L 08/02/16 05:35 Current Medications Generic Name Dose Route Start Last Admin Trade Name Freq PRN Reason Stop Dose Admin Sodium Bicarbonate 150 meq/ 1,150 mls @ 125 mls/hr 08/02/16 10:55 08/02/16 12: 30 Dextrose IV 125 mls/hr Q9H VERONICA Administration Pantoprazole Sodium 100 mls @ 200 mls/hr 08/03/16 10:00 Protonix 40mg Ivpb (Pre-Docked) IVPB DAILY [facility] Insulin Aspart 1 vial 08/02/16 16:30 08/02/16 18:07 Novolog Vial Sliding Scale - SQ 4 units TIDAC VERONICA Administration Protocol Home Medications Medication Instructions Recorded Amlodipine Besylate [Norvasc -] 10 mg PO DAILY 06/03/16 Calcium Carbonate/Vitamin D3 1 each PO DAILY 06/03/16 [Calcium 600 + Vit D Tablet] Clopidogrel Bisulfate [Clopidogrel] 75 mg PO DAILY 06/03/16 Furosemide [Lasix] 20 mg PO DAILY 06/03/16 Losartan Potassium [Cozaar] 100 mg PO DAILY 06/03/16 Simvastatin [Zocor -] 20 mg PO HS 06/03/16 Insulin (Levemir) [Levemir Flexpen 20 units SQ DAILY MDD 20 U night 06/21/16 -] Insulin (Novolog) [Novolog Flexpen 0 units SQ ACHS MDD 7 U lunch time 06/21/16 -] Cyanocobalamin (Vitamin B-12) 2,500 mcg PO DAILY 08/01/16 [Vitamin B12] Multivitamins [Tab-A-Vit -] 1 tab PO DAILY 08/01/16 PE: per resident's note ASSESSMENT AND PLAN: 85 yr old Georgian speaking woman with biliary drain, enlarged pancreatic head, HTN, HLD, DM, osteoporosis, presented to the ED with coffee ground emesis for two days. Transferred to ICU for AMS, RANJANA and metabolic acidosis requiring emergent dialysis. #Acute renal failure for dialysis , for consult; Juancho, Tx the patient to ICU with PH of 7.18 # Acute GI bleed on Protonix drip ;Gi consult #DM on sliding scale with coverage Dvt Px: SCds.
[2016-08-02] MEDS ORDERED: INSULIN (NOVOLOG) ASPART 100 UNITS/ML 10ML VIAL SQ ONE (21:29)
[2016-08-03] MEDS ORDERED: DEXTROSE 5%-LACTATED RINGERS 1,000 ML IV SCH (00:01)
[2016-08-03] MEDS ORDERED: HEMOQUE TEST 1 EACH EACH ONE ×2 (05:25→21:17)
[2016-08-03] MEDS ORDERED: SODIUM BICARBONATE 8.4% 50 MEQ/50 ML VIAL ONE (06:05)
[2016-08-03 06:11] LABS: MCH 28.3 pg (25.7-33.7); MCHC 32.6 g/dl (32.0-36.0); MEAN PLT VOLUME 9.3 fl (7.5-11.1); PLATELET COUNT 144 K/MM3 (134-434); RDW 14.9 % (11.6-15.6); WHITE BLOOD COUNT 10.9 K/mm3 (4.0-10.0)
[2016-08-03 06:33] LABS: ALBUMIN 2.2 g/dl (3.4-5.0); CALCIUM 7.1 mg/dL (8.5-10.1); COCKROFT - GAULT 4.369; CREATININE 6.2 mg/dL (0.55-1.02); MAGNESIUM 1.7 mg/dL (1.8-2.4); PHOSPHOROUS 4.5 mg/dL (2.5-4.9)
[2016-08-03 06:34] LABS: BILIRUBIN,TOTAL 0.7 mg/dL (0.2-1.0); TOT PROT 5.3 g/dl (6.4-8.2)
[2016-08-03] MEDS: SODIUM BICARBONATE 8.4% - 150 MEQ in DEXTROSE 5%-WATER - 1,000 ML IV SCH (07:12)
[2016-08-03] MEDS: INSULIN SLIDING SCALE (NOVOLOG) 1 VIAL SQ SCH ×3 (07:13→17:45)
[2016-08-03] MEDS ORDERED: MAGNESIUM SULF 50% (8.12 MEQ/2 ML-1 GM VIAL) IVPB ONE (08:49)
--- NOTE | 2016-08-03 09:05 | PN ---
Physical Exam: SUBJECTIVE: Patient seen and examined at bed side this morning. Patient was being dialyzed. no change as compared to yesterday. OBJECTIVE: Vital Signs Period Temp Pulse Resp BP Sys/Luo Pulse Ox Last 24 Hr 97.7 F-98.6 F 91-120 10-18 125-167/45-64 100-100 GENERAL: Elderly female, staring at the ceiling mostly, is awake, alert, and not oriented to time, place and person, in no acute distress. HEAD: Normal with no signs of trauma. EYES: EOM intact, pallor + but no icterus. ENT: Ears normal, dry mucous membranes. NECK: Trachea midline, full range of motion, supple. LUNGS: Breath sounds equal, clear to auscultation bilaterally, no wheezes, no crackles, no accessory muscle use. HEART: Regular rate and rhythm, S1, S2 with systolic murmur. ABDOMEN: Pig tail catheter in place, Soft, nontender, nondistended, normoactive bowel sounds, no guarding, no rebound, no hepatosplenomegaly, no masses. EXTREMITIES: 2+ pulses, warm, well-perfused, no edema. NEUROLOGICAL: Non verbal. Normal speech, gait not observed. PSYCH: Normal mood, normal affect. SKIN: Warm, dry, normal turgor, no rashes or lesions noted Laboratory Results - last 24 hr 08/02/16 08/02/16 08/02/16 10:15 11:27 14:03 WBC RBC Hgb Hct MCV MCHC RDW Plt Count MPV Puncture Site Right radial ABG pH 7.18 L* D ABG pCO2 at Pt Temp 30.2 L D ABG pO2 at Pt Temp 106.0 H D ABG HCO3 10.9 L* ABG O2 Sat (Measured) 97.0 ABG O2 Content 10.7 L ABG Base Excess -15.9 L* Chirag Test Positive O2 Delivery Device R/a Oxygen Flow Rate 21% PEEP 0.0 Sodium Potassium Chloride Carbon Dioxide Anion Gap BUN Creatinine Creat Clearance w eGFR POC Glucometer [phone] Random Glucose Hemoglobin A1c % Calcium Phosphorus Magnesium Total Bilirubin AST ALT Alkaline Phosphatase Total Protein Albumin Hepatitis C Antibody 08/02/16 08/02/16 08/02/16 16:30 17:52 21:24 WBC RBC Hgb Hct MCV MCHC RDW Plt Count MPV Puncture Site ABG pH ABG pCO2 at Pt Temp ABG pO2 at Pt Temp ABG HCO3 ABG O2 Sat (Measured) ABG O2 Content ABG Base Excess Chirag Test O2 Delivery Device Oxygen Flow Rate PEEP Sodium Potassium Chloride Carbon Dioxide Anion Gap BUN Creatinine Creat Clearance w eGFR POC Glucometer [phone] Random Glucose Hemoglobin A1c % Calcium Phosphorus Magnesium Total Bilirubin AST ALT Alkaline Phosphatase Total Protein Albumin Hepatitis C Antibody Cancelled 08/03/16 08/03/16 08/03/16 05:00 05:00 05:00 WBC 10.9 H RBC 3.08 L Hgb 8.7 L Hct 26.8 L MCV 87.0 MCHC 32.6 RDW 14.9 Plt Count 144 D MPV 9.3 Puncture Site ABG pH ABG pCO2 at Pt Temp ABG pO2 at Pt Temp ABG HCO3 ABG O2 Sat (Measured) ABG O2 Content ABG Base Excess Chirag Test O2 Delivery Device Oxygen Flow Rate PEEP Sodium 137 Potassium 3.8 D Chloride 95 L D Carbon Dioxide 32 D Anion Gap 10 BUN 55 H D Creatinine 6.2 H D Creat Clearance w eGFR 6.39 POC Glucometer Random Glucose 212 H D Hemoglobin A1c % 7.9 H D Calcium 7.1 L Phosphorus 4.5 D Magnesium 1.7 L D Total Bilirubin 0.7 AST 31 D ALT 20 Alkaline Phosphatase 116 Total Protein 5.3 L Albumin 2.2 L Hepatitis C Antibody 08/03/16 05:31 WBC RBC Hgb Hct MCV MCHC RDW Plt Count MPV Puncture Site ABG pH ABG pCO2 at Pt Temp ABG pO2 at Pt Temp ABG HCO3 ABG O2 Sat (Measured) ABG O2 Content ABG Base Excess Chirag Test O2 Delivery Device Oxygen Flow Rate PEEP Sodium Potassium Chloride Carbon Dioxide Anion Gap BUN Creatinine Creat Clearance w eGFR POC Glucometer [phone] Random Glucose Hemoglobin A1c % Calcium Phosphorus Magnesium Total Bilirubin AST ALT Alkaline Phosphatase Total Protein Albumin Hepatitis C Antibody Active Medications Generic Name Dose Route Start Last Admin Trade Name Freq PRN Reason Stop Dose Admin Heparin Sodium (Porcine) 1,000 unit 08/03/16 06:00 Heparin - IVPUSH 08/03/16 06:01 ONCE ONE Sodium Bicarbonate 150 meq/ 1,150 mls @ 125 mls/hr 08/02/16 10:55 08/03/16 07: 12 Dextrose IV 125 mls/hr Q9H VERONICA Administration Pantoprazole Sodium 100 mls @ 200 mls/hr 08/03/16 10:00 Protonix 40mg Ivpb (Pre-Docked) IVPB DAILY VERONICA Insulin Aspart 1 vial 08/02/16 16:30 08/03/16 07:13 Novolog Vial Sliding Scale - SQ 4 units TIDAC VERONICA Administration Protocol Magnesium Sulfate 1 gm 08/03/16 08:49 Magnesium Sulfate IVPB 08/03/16 08:50 ONCE ONE ASSESSMENT/PLAN: Patient is a 85 year old female with PMH of Hypertension, Hyperlipidemia, Diabetes Mellitus, pancreatic ca, osteoporosis presents to the ER with coffee ground emesis x4 over two days. Also found to have RANJANA on CKD. # UTI-Group D strep/Enterococcus IV Ceftriaxone 1gm daily, to be changed as per sensitivity. # Acute on Chronic kidney injury Likely due to Acute Tubular Necrosis ( contrast induced, NSAID use for pain given the h/o pancreatic cancer, use of ARB, contrast? ) Creatinine after 1st dialysis 6.2, baseline 1.2 Mccullough cather placed, strict I's and O's Nephrology consult appreciated, he recommended that temporary dialysis would be beneficial, hence started emergent dialysis. # Possible Upper GI bleed c/o 4 episodes of coffee ground emesis NPO On Protonix drip H/H 8.7/26.8, to transfuse PRBC if Hb < 7 gm/dl Started clear liquid diabetic diet GI consult appreciated Failed ERCP with a stent and attemped an IR drainage as per patients son-in- law son-in law Luigi [phone] Patient's discharge summary from [facility] attached in the file. # Altered mental status Could be due to uremia vs metastasis from pancreatic cancer Hopefully will improve after dialysis if it is renal cause # Pancreatic cancer- pig tail catheter in place draining yellow brownish fluid- 250mls over 24 hrs Patient's oncologist from [facility] was reached by co-resident, he mentioned that patient has most likely pancreatic cancer. Biopsy was not done at that time since patients family had decided no further medical management to be done for pancreatic cancer (no chemo or radiation considering her age). Plan: Have a family meeting and discuss about the further treatment. Palliative care. Consult placed for Dr. Cavazos. # Diabetes Mellitus- with hypoglycemia HbA1c 7.9 Was hypoglycemic yesterday 21mg/dl---> after D50---> 193 mg/dl BGM Q2H Insulin sliding scale as directed only # FEN IV D5-1/2 NS @ 125mls/hr Electrolytes to be repeated Clear liquid diabetic diet # Prophylaxis For DVT: On Scd's, heparin not given due to GI bleed For GI: On Protonix drip # Code Status: Full Code # Dispo: Transfered from Tele to ICU. Duration of stay unknown. Illness, Investigation and Plan of care explained to the patient's family members (Daughter and son). They verbalized understanding. Daughter's info; Ms. CHAVEZ- [phone]. Please call Ms. Rosanne Damico [phone] who speaks Georgian. Family consented to discuss about patients medical condition with Ms. Lay. HCP: Mr. Anatoly Hannon (Eldest son- [phone]). Case seen and discussed with Dr. Browning. Visit type - Emergency Visit Emergency Visit: Yes ED Registration Date: 08/02/16 Care time: The patient presented to the Emergency Department on the above date and was hospitalized for further evaluation of their emergent condition. - New Patient This patient is new to me today: No - Critical Care Critical Care patient: Yes Total Critical Care Time (in minutes): 45 Critical Care Statement: The care of this patient involved high complexity decision making to prevent further life threatening deterioration of the patient 's condition and/or to evalute & treat vital organ system(s) failure or risk of failure.
[2016-08-03] MEDS ORDERED: PANTOPRAZOLE SODIUM 100 ML IVPB SCH (10:00)
--- NOTE | 2016-08-03 10:53 | CONSULT ---
Consult - text type - Consultation Consultation Note: Neurology History of Present Illness This is an 85 yo F with PMH of gastritis (on egd 04/18/12), recently diagnosed pancreatic CA (CT abd here 06/03/16 shows large pancreatic head, distended GB and dilated biliary tree), also had ERCP 07/[address] Whittaker, then transferred to [facility] for biliary drain due to pancreatic CA, who presented with coffee ground emesis. Welsh speaking and in the ICU being managed for multiple medical issues and appears to have ongoing uremic encephalopathy. Patient remains calm, alert, awake, cooperative but with flat affect and minimal movements. Past History - Travel Traveled outside of the country in the last 30 days: No Close contact w/someone who was outside of country & ill: No - Past Medical History Diabetes: Yes HTN: Yes Hypercholesterolemia: Yes - Surgical History Appendectomy: Yes - Psycho/Social/Smoking Cessation Hx Anxiety: No Suicidal Ideation: No Smoking Status: No Smoking History: Never smoked Have you smoked in the past 12 months: No Number of Cigarettes Smoked Daily: 0 Hx Alcohol Use: No Drug/Substance Use Hx: No Substance Use Type: None Hx Substance Use Treatment: No - Past Medical History Allergies/Adverse Reactions: Allergies Allergy/AdvReac Type Severity Reaction Status Date / Time No Known Allergies Allergy Verified 08/01/16 16:42 Home Medications: Ambulatory Orders Amlodipine Besylate [Norvasc -] 10 mg PO DAILY 06/03/16 Calcium Carbonate/Vitamin D3 [Calcium 600 + Vit D Tablet] 1 each PO DAILY Clopidogrel Bisulfate [Clopidogrel] 75 mg PO DAILY 06/03/16 Furosemide [Lasix] 20 mg PO DAILY 06/03/16 Losartan Potassium [Cozaar] 100 mg PO DAILY 06/03/16 Simvastatin [Zocor -] 20 mg PO HS 06/03/16 Insulin (Levemir) [Levemir Flexpen -] 20 units SQ DAILY MDD 20 U night 06/21/16 Insulin (Novolog) [Novolog Flexpen -] 0 units SQ ACHS MDD 7 U lunch time Cyanocobalamin (Vitamin B-12) [Vitamin B12] 2,500 mcg PO DAILY 08/01/16 Multivitamins [Tab-A-Vit -] 1 tab PO DAILY 08/01/16 Review of Systems - Review of Systems Able to Perform ROS?: No (lethargy) Is the patient limited Chinese proficient: Yes *Physical Exam Vital Signs Period Temp Pulse Resp BP Sys/Luo Pulse Ox Last 24 Hr 97.7 F-98.6 F 91-120 10-18 125-414/45-64 100-100 GENERAL: lethargic, alert, oriented to self, CACHECTIC, pale, appears dry HEENT: NORMOCEPHALIC, ATRAUMATIC, PERRLA EOMI, MILD SCLERAL ICTERUS, CONJUNCTIVA CLEAR PULM: bibasilar crackles GI: SOFT, DIFFUSELY MILDLY TENDER, NONDISTENDED, NORMOACTIVE BOWEL SOUNDS, MILD HEPATOMEGALY, NO MASS, r POSTERIOR CHOLECYSTOSTOMY TUBE IN PLACE, NONERYTHEMATOUS ENTRY SITE, CLEAN DRESSING, DARK BROWN LIQUID BAG CONTENTS NEURO: CRANIAL NERVES GROSSLY INTACT SKIN: DECREASED TURGOR EXTREMITIES: NO EDEMA, NO CALF TENDERNESS CBCD WBC 10.9 K/mm3 (4.0-10.0) H 08/03/16 05:00 RBC 3.08 M/mm3 (3.60-5.2) L 08/03/16 05:00 Hgb 8.7 GM/dL (10.7-15.3) L 08/03/16 05:00 Hct 26.8 % (32.4-45.2) L 08/03/16 05:00 MCV 87.0 fl (80-96) 08/03/16 05:00 MCHC 32.6 g/dl (32.0-36.0) 08/03/16 05:00 RDW 14.9 % (11.6-15.6) 08/03/16 05:00 Plt Count 144 K/MM3 (134-434) D 08/03/16 05:00 MPV 9.3 fl (7.5-11.1) 08/03/16 05:00 CMP Sodium 137 mmol/L (136-145) 08/03/16 05:00 Potassium 3.8 mmol/L (3.5-5.1) D 08/03/16 05:00 Chloride 95 mmol/L (98-107) L D 08/03/16 05:00 Carbon Dioxide 32 mmol/L (21-32) D 08/03/16 05:00 Anion Gap 10 (8-16) 08/03/16 05:00 BUN 55 mg/dL (7-18) H D 08/03/16 05:00 Creatinine 6.2 mg/dL (0.55-1.02) H D 08/03/16 05:00 Creat Clearance w eGFR 6.39 (>60) 08/03/16 05:00 Calcium 7.1 mg/dL (8.5-10.1) L 08/03/16 05:00 Total Bilirubin 0.7 mg/dL (0.2-1.0) 08/03/16 05:00 AST 31 U/L (15-37) D 08/03/16 05:00 ALT 20 U/L (12-78) 08/03/16 05:00 Alkaline Phosphatase 116 U/L (45-117) 08/03/16 05:00 Total Protein 5.3 g/dl (6.4-8.2) L 08/03/16 05:00 Albumin 2.2 g/dl (3.4-5.0) L 08/03/16 05:00 Plan: 85 yo F with PMH of gastritis (on egd 04/18/12), recently diagnosed pancreatic CA (CT abd here 06/03/16 shows large pancreatic head, distended GB and dilated biliary tree), also had ERCP 07/[address] Whittaker, then transferred to [facility] for biliary drain due to pancreatic CA, who presented with coffee ground emesis. Welsh speaking and in the ICU being managed for multiple medical issues and appears to have ongoing uremic encephalopathy. Patient remains calm, alert, awake, cooperative but with flat affect and minimal movements. Will hold off on imaging of head for now Mental status intact and likely language barrier challenges Continue managment of uremia Nephrology following Neurologically improving Dr Young on this weekend, I will return Saturday
--- NOTE | 2016-08-03 10:54 | PN ---
Progress Note (short form) - Note Progress Note: Renal follow up for RANJANA Pt seen and examined in the ICU currently getting 2nd HD treatment BP stable, access with good flow no overnight events good urine output Vital Signs Temperature 97.7 F 08/03/16 10:19 Pulse Rate 116 H 08/03/16 10:19 Respiratory Rate 14 08/03/16 10:19 Blood Pressure 414/55 08/03/16 10:19 O2 Sat by Pulse Oximetry (%) 100 08/02/16 21:00 Intake & Output 07/31/16 08/01/16 08/02/16 08/03/16 23:59 23:59 23:59 23:59 Intake Total 1100 1745 875 Output Total 250 1000 200 Balance 850 745 675 Weight 100 lb 95 lb 9 oz Gen: NAD, awake but confused HEENT: NC/AT, MMM, No JVD CVS: RRR, No M/R Lungs: CTA, no rales or wheeze Abd: soft NT/ND Ext: No edema, clubbing or cyanosis : no bladder distension, hernández in place Neuro:awake and alert CBC, BMP 08/03/16 05:00 08/03/16 05:00 Laboratory Tests 08/03/16 08/03/16 05:00 05:00 Hemoglobin A1c % 7.9 H D Calcium 7.1 L Phosphorus 4.5 D Magnesium 1.7 L D Albumin 2.2 L Current Medications Heparin Sodium (Porcine) (Heparin -) 1,000 unit IVPUSH ONCE ONE Stop: 08/03/16 06:01 Sodium Bicarbonate 150 meq/ (Dextrose) 1,150 mls @ 125 mls/hr IV Q9H VERONICA Last Admin: 08/03/16 07:12 Dose: 125 mls/hr Pantoprazole Sodium (Protonix 40mg Ivpb (Pre-Docked)) 100 mls @ 200 mls/hr IVPB DAILY VERONICA Last Admin: 08/03/16 09:44 Dose: 200 mls/hr Insulin Aspart (Novolog Vial Sliding Scale -) 1 vial SQ TIDAC [facility] PRN Reason: Protocol Last Admin: 08/03/16 07:13 Dose: 4 units A/P 85 year old woman with PMhx of Pancreatic Mass/lesion suspicious for Ca, Billiary obstruction s/p IR drain placement, Hypertension, Hyperlipidemia, DM who presented with N/V with coffee ground emesis and found to have BUN/Cr of 91/ 10. #Acute on Chronic Renal Failure with acidosis and suspected uremia in setting of AMS Cr was 1.1 on 06-25-2016 FeNa 11% consistent with ATN Urine output ok yesterday getting 2nd HD today with improvement in acidosis will trend BUN/Cr and urine output additional HD as needed dose all meds for Cr Cl less then 10 for now d/c sodium bicab gtt #N/V/Coffee Ground Emesis/Anemia Management as per GI Transfuse as per ICU protocol #Pancreatic Mass with billiary obstruction Oncology following awaiting reports on prior treatments Tx options as per Oncology Jean Tejeda DO
--- NOTE | 2016-08-03 11:58 | PN ---
Teaching Attending Note Name of Resident: Mario Blas ATTENDING PHYSICIAN STATEMENT I saw and evaluated the patient. I reviewed the resident's note and discussed the case with the resident. I agree with the resident's findings and plan as documented. SUBJECTIVE: Pt seen and examined in the ICU. Tolerating HD. Better urine output yesterday. No fevers recorded. Still with vomiting. OBJECTIVE: Last Vital Signs Temp Pulse Resp BP Pulse Ox 97.7 F 116 H 14 414/55 100 08/03/16 10:19 08/03/16 10:19 08/03/16 10:19 08/03/16 10:19 08/02/16 21:00 Intake & Output 07/31/16 08/01/16 08/02/16 08/03/16 23:59 23:59 23:59 23:59 Intake Total 1100 1745 875 Output Total 250 1000 200 Balance 850 745 675 Weight 100 lb 95 lb 9 oz Gen: NAD at rest Heart: tachycardic, regular Lung: decreased breath sounds at the bases Abd: soft, nontender Ext: no edema, right femoral HD catheter CBC, BMP 08/03/16 05:00 08/03/16 05:00 Active Medications Heparin Sodium (Porcine) (Heparin -) 1,000 unit IVPUSH ONCE ONE Stop: 08/03/16 06:01 Pantoprazole Sodium (Protonix 40mg Ivpb (Pre-Docked)) 100 mls @ 200 mls/hr IVPB DAILY [facility] Last Admin: 08/03/16 09:44 Dose: 200 mls/hr Insulin Aspart (Novolog Vial Sliding Scale -) 1 vial SQ TIDAC [facility] PRN Reason: Protocol Last Admin: 08/03/16 11:30 Dose: Not Given ASSESSMENT AND PLAN: Likely Pancreatic Cancer Nausea/Vomiting Acute Kidney Injury with Metabolic Acidosis requiring HD - HD per renal - monitor urine output, creatinine - IVF - monitor H/H - oncology f/u - DVT prophylaxis - can monitor on floor
[2016-08-03] MEDS ORDERED: HEPARIN NA (PORCINE) 5,000 UNITS/ML 1ML VIAL IVPUSH ONE (13:15)
--- NOTE | 2016-08-03 13:57 | PN ---
Physical Exam: SUBJECTIVE: Patient seen and examined Discussed case with Maddie Lyles from [facility]. When patient was at [facility], the family had decided against biopsy and further treatment as prognosis was poor. Pancreatic cancer or GI Ca was assumed. 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 Family decided against pursing further work-up and treatment as prognosis was poor. Patient more appropriate today. making eye contact, when asked in turkmen if she was in pain, patient answered that she was not. pt appears nauseous, vomited everything that was provided (jello and water). OBJECTIVE: Vital Signs Period Temp Pulse Resp BP Sys/Luo Pulse Ox Last 24 Hr 97.7 F-98.6 F 91-120 10-18 125-167/45-69 98-100 GENERAL: Awake, alert, and in no acute distress. EYES: perrla, eomi ENT: oropharynx clear without exudates, poor dentition. Moist mucous membranes. LUNGS: Breath sounds equal, clear to auscultation bilaterally. No wheezes, and no crackles. No accessory muscle use. HEART: Regular rate and rhythm, normal S1 and S2 with systolic murmur. ABDOMEN: Soft, mildly tender in right and left lower quadrants, not distended, normoactive bowel sounds, no guarding. biliary drain in place RUQ with dark brown non-bloody drainage UPPER EXTREMITIES: 2+ radial pulses, warm, well-perfused. No cyanosis. No peripheral edema. LOWER EXTREMITIES: + dp pulses, warm, well-perfused. mild right calf tenderness without erythema/edema, No peripheral edema. NEUROLOGICAL: Normal speech. moving all extremities freely, muscle tone intact in arms and b/l LE, facial symmetry. Laboratory Results - last 24 hr 08/02/16 08/02/16 08/02/16 14:03 16:30 17:52 WBC RBC Hgb Hct MCV MCHC RDW Plt Count MPV Sodium Potassium Chloride Carbon Dioxide Anion Gap BUN Creatinine Creat Clearance w eGFR POC Glucometer [phone] Random Glucose Hemoglobin A1c % Calcium Phosphorus Magnesium Total Bilirubin AST ALT Alkaline Phosphatase Total Protein Albumin Hepatitis C Antibody Cancelled 08/02/16 08/03/16 08/03/16 21:24 05:00 05:00 WBC 10.9 H RBC 3.08 L Hgb 8.7 L Hct 26.8 L MCV 87.0 MCHC 32.6 RDW 14.9 Plt Count 144 D MPV 9.3 Sodium 137 Potassium 3.8 D Chloride 95 L D Carbon Dioxide 32 D Anion Gap 10 BUN 55 H D Creatinine 6.2 H D Creat Clearance w eGFR 6.39 POC Glucometer [phone] Random Glucose 212 H D Hemoglobin A1c % Calcium 7.1 L Phosphorus 4.5 D Magnesium 1.7 L D Total Bilirubin 0.7 AST 31 D ALT 20 Alkaline Phosphatase 116 Total Protein 5.3 L Albumin 2.2 L Hepatitis C Antibody 08/03/16 08/03/16 05:00 05:31 WBC RBC Hgb Hct MCV MCHC RDW Plt Count MPV Sodium Potassium Chloride Carbon Dioxide Anion Gap BUN Creatinine Creat Clearance w eGFR POC Glucometer [phone] Random Glucose Hemoglobin A1c % 7.9 H D Calcium Phosphorus Magnesium Total Bilirubin AST ALT Alkaline Phosphatase Total Protein Albumin Hepatitis C Antibody Active Medications Generic Name Dose Route Start Last Admin Trade Name Markq PRN Reason Stop Dose Admin Pantoprazole Sodium 100 mls @ 200 mls/hr 08/03/16 10:00 08/03/16 09:44 Protonix 40mg Ivpb (Pre-Docked) IVPB 200 mls/hr DAILY REJI Administration Insulin Aspart 1 vial 08/02/16 16:30 08/03/16 11:30 Novolog Vial Sliding Scale - SQ Not Given TIDAC [facility] Protocol Intake & Output 08/01/16 08/02/16 08/03/16 23:59 23:59 23:59 Intake Total 1100 1745 1850 Output Total 250 1000 430 Balance 501 543 1092 Weight 100 lb 95 lb 9 oz ASSESSMENT/PLAN: 85 yr old woman with DM, HTN, renal insufficiency, recently found to have pancreatic mass(work-up pending), with biliary drain admitted for coffee ground emesis transferred to ICU for metabolic acidosis, RANJANA and AMS. Patient and family would likely benefit from palliative and hospice evaluation given poor prognosis Renal RANJANA/anion gap metabolic acidosis - likely ATN in setting of arb/likely contrast use hemodialysis x2 with improved renal function and metabolic acidosis avoid nephrotoxic medications hernández in place to monitor urine output, making clear yellow urine consult: dr. das, note appreciated Neurological Encephalopathy likely caused by uremia, improved mentation and cooperation, appears to be more appropriate than yesterday. patient at baseline is alert/ oriented Hematology/oncology Pancreatic mass - as per previous oncology eval at [facility] family had declined further work-up GI Biliary drain - found to have CBD and distended gallbladder, drain placed at [facility], will attempt to reach gastroenterlogist for further details. emesis today protonix daily zofran 8mg q8 for nausea reji consult: dr. melgar Endocrine monitor BGM ACHS, NISS ACHS Cardiovascular hold home medications for HTN (losartan, lasix, norvasc) hold clopidogrel Infectious Disease bld CX NGTD leucocytosis trending down, pt afebrile, NGTD in bld cx, urine cx positive for organism, tx with rocephin 1gm daily for UTI Diet; liquid diet as tolerated, pt required assistance with eating, feed slowly DVT: SCD's Visit type - Emergency Visit Emergency Visit: No - New Patient This patient is new to me today: No - Critical Care Critical Care patient: Yes Total Critical Care Time (in minutes): 41 Critical Care Statement: The care of this patient involved high complexity decision making to prevent further life threatening deterioration of the patient 's condition and/or to evalute & treat vital organ system(s) failure or risk of failure.
--- NOTE | 2016-08-03 15:38 | PN ---
GI Progress Note Subjective: Received dialysis Retching after eating jello today - Objective Vital Signs: Vital Signs Temperature 97.7 F 08/03/16 10:19 Pulse Rate 108 H 08/03/16 13:45 Respiratory Rate 18 08/03/16 13:45 Blood Pressure 168/68 08/03/16 13:45 O2 Sat by Pulse Oximetry (%) 98 08/03/16 09:00 Constitutional: Calm Cardiovascular: Yes: Tachycardia Respiratory: Yes: Diminished (at bases bilaterally) ...Auscultate: Yes: Normoactive Bowel Sounds ...Palpate: No: Tenderness Edema: No Neurological: Yes: Other (Awake) Labs: CBC, BMP 08/03/16 05:00 08/03/16 05:00 INR, PTT INR 0.99 (0.82-1.09) 08/01/16 17:41 Problem List - Problems (1) Coffee ground emesis Assessment/Plan: No overt bleeding Continue clears for now ? hospice care Code(s): K92.0 - HEMATEMESIS (2) History of biliary stent insertion Assessment/Plan: Bilirubin nl, stent appears to be functioning Code(s): Z98.890 - OTHER SPECIFIED POSTPROCEDURAL STATES
[2016-08-03] MEDS ORDERED: CEFTRIAXONE 1G/50 ML IVPB SCH (16:00)
[2016-08-03] MEDS ORDERED: morphine CARPU-JECT 2 MG/1 ML DISP.SYRIN IVPUSH PRN (16:45)
[2016-08-03] MEDS: ONDANSETRON 4 MG/2 ML VIAL IVPB SCH ×2 (17:25→21:50)
--- NOTE | 2016-08-03 17:53 | PN ---
Teaching Attending Note Name of Resident: Lawanda Baird ATTENDING PHYSICIAN STATEMENT I saw and evaluated the patient. I reviewed the resident's note and discussed the case with the resident. I agree with the resident's findings and plan as documented. SUBJECTIVE: Patient is more with it today, comfortable. having dialysis at bedside, patient is in ICU. OBJECTIVE: Vital Signs Temperature 97.7 F 08/03/16 10:19 Pulse Rate 108 H 08/03/16 13:45 Respiratory Rate 18 08/03/16 13:45 Blood Pressure 168/68 08/03/16 13:45 O2 Sat by Pulse Oximetry (%) 98 08/03/16 09:00 CBCD WBC 10.9 K/mm3 (4.0-10.0) H 08/03/16 05:00 RBC 3.08 M/mm3 (3.60-5.2) L 08/03/16 05:00 Hgb 8.7 GM/dL (10.7-15.3) L 08/03/16 05:00 Hct 26.8 % (32.4-45.2) L 08/03/16 05:00 MCV 87.0 fl (80-96) 08/03/16 05:00 MCHC 32.6 g/dl (32.0-36.0) 08/03/16 05:00 RDW 14.9 % (11.6-15.6) 08/03/16 05:00 Plt Count 144 K/MM3 (134-434) D 08/03/16 05:00 MPV 9.3 fl (7.5-11.1) 08/03/16 05:00 CMP Sodium 137 mmol/L (136-145) 08/03/16 05:00 Potassium 3.8 mmol/L (3.5-5.1) D 08/03/16 05:00 Chloride 95 mmol/L (98-107) L D 08/03/16 05:00 Carbon Dioxide 32 mmol/L (21-32) D 08/03/16 05:00 Anion Gap 10 (8-16) 08/03/16 05:00 BUN 55 mg/dL (7-18) H D 08/03/16 05:00 Creatinine 6.2 mg/dL (0.55-1.02) H D 08/03/16 05:00 Creat Clearance w eGFR 6.39 (>60) 08/03/16 05:00 Random Glucose 212 mg/dL (74-106) H D 08/03/16 05:00 Calcium 7.1 mg/dL (8.5-10.1) L 08/03/16 05:00 Total Bilirubin 0.7 mg/dL (0.2-1.0) 08/03/16 05:00 AST 31 U/L (15-37) D 08/03/16 05:00 ALT 20 U/L (12-78) 08/03/16 05:00 Alkaline Phosphatase 116 U/L (45-117) 08/03/16 05:00 Total Protein 5.3 g/dl (6.4-8.2) L 08/03/16 05:00 Albumin 2.2 g/dl (3.4-5.0) L 08/03/16 05:00 Current Medications Generic Name Dose Route Start Last Admin Trade Name Freq PRN Reason Stop Dose Admin Pantoprazole Sodium 100 mls @ 200 mls/hr 08/03/16 10:00 08/03/16 09:44 Protonix 40mg Ivpb (Pre-Docked) IVPB 200 mls/hr DAILY VERONICA Administration Ceftriaxone Sodium 50 mls @ 100 mls/hr 08/03/16 16:00 08/03/16 17:25 Rocephin 1gm Ivpb (Pre-Docked) IVPB 100 mls/hr DAILY VERONICA Administration Insulin Aspart 1 vial 08/02/16 16:30 08/03/16 17:45 Novolog Vial Sliding Scale - SQ 4 units TIDAC VERONICA Administration Protocol Morphine Sulfate 2 mg 08/03/16 16:45 Morphine Injection - IVPUSH Q2H PRN PAIN Ondansetron HCl 8 mg 08/03/16 16:45 08/03/16 17:25 Zofran Injection IVPB 8 mg Q6H-IV VERONICA Administration Home Medications Medication Instructions Recorded Amlodipine Besylate [Norvasc -] 10 mg PO DAILY 06/03/16 Calcium Carbonate/Vitamin D3 1 each PO DAILY 06/03/16 [Calcium 600 + Vit D Tablet] Clopidogrel Bisulfate [Clopidogrel] 75 mg PO DAILY 06/03/16 Furosemide [Lasix] 20 mg PO DAILY 06/03/16 Losartan Potassium [Cozaar] 100 mg PO DAILY 06/03/16 Simvastatin [Zocor -] 20 mg PO HS 06/03/16 Insulin (Levemir) [Levemir Flexpen 20 units SQ DAILY MDD 20 U night 06/21/16 -] Insulin (Novolog) [Novolog Flexpen 0 units SQ ACHS MDD 7 U lunch time 06/21/16 -] Cyanocobalamin (Vitamin B-12) 2,500 mcg PO DAILY 08/01/16 [Vitamin B12] Multivitamins [Tab-A-Vit -] 1 tab PO DAILY 08/01/16 Microbiology 08/01/16 19:37 Urine - Urine Mccullough Urine Culture - Preliminary Group D Strep Or Entero Coccus 08/01/16 19:12 Blood - Peripheral Venous Blood Culture - Preliminary NO GROWTH OBTAINED AFTER 24 HOURS, INCUBATION TO CONTINUE FOR 4 DAYS. 08/01/16 19:12 Blood - Peripheral Venous Blood Culture - Preliminary NO GROWTH OBTAINED AFTER 24 HOURS, INCUBATION TO CONTINUE FOR 4 DAYS. ASSESSMENT AND PLAN: 85 yr old French speaking woman with biliary drain, enlarged pancreatic head, HTN, HLD, DM, osteoporosis, presented to the ED with coffee ground emesis for two days. Transferred to ICU for AMS, RANJANA and metabolic acidosis requiring emergent dialysis. #Acute renal failure with Metabolic Acidosis requiring HD s/p dialysis today , on the case , patient is in ICU ,Likely due to ATN # Acute UTI-Group D strep/Enterococcus, started on IV Ceftriaxone 1gm daily; c & S pending. # Coffee ground emesis x 4 , on Protonix drip ;Gi consult ; clear liquid diet. # Pancreatic cancer- Failed ERCP with a stent and attemped an IR drainage as per patient's son-in-law ;Sun [phone]. pig tail catheter in place draining yellow brownish fluid- 250mls over 24 hrs. Patient's discharge summary from [facility] attached in the file. #DM on sliding scale with coverage # DVT Px : On Scd's, heparin not given due to GI bleed. GI px: On Protonix drip # Code Status: Full Code Daughter's info; Ms. CHAVEZ- [phone]. Please call Ms. Lay Mookie [phone] who speaks Tamazight. Family consented to discuss about patients medical condition with Ms. Lay. Health Care Proxy. Mr. Anatoly Hannon (Eldest son- [phone]).
[2016-08-04] MEDS: ONDANSETRON 4 MG/2 ML VIAL IVPB SCH ×2 (02:41→09:56)
[2016-08-04] MEDS: INSULIN SLIDING SCALE (NOVOLOG) 1 VIAL SQ SCH ×3 (06:20→17:15)
[2016-08-04 07:10] LABS: BASOPHIL 0.4 % (0-2.0); EOSINOPHIL 0.2 % (0-4.5); MCH 28.4 pg (25.7-33.7); MEAN CELL VOLUME 88.7 fl (80-96); MEAN PLT VOLUME 8.9 fl (7.5-11.1); NEUTROPHILS 81.3 % (42.8-82.8); PLATELET COUNT 103 K/MM3 (134-434); RDW 14.7 % (11.6-15.6); WHITE BLOOD COUNT 7.7 K/mm3 (4.0-10.0)
[2016-08-04 07:53] LABS: ALBUMIN 1.9 g/dl (3.4-5.0); BILIRUBIN,TOTAL 0.6 mg/dL (0.2-1.0); CALCIUM 7.5 mg/dL (8.5-10.1); COCKROFT - GAULT 7.021; CREATININE 4.3 mg/dL (0.55-1.02); PHOSPHOROUS 5.6 mg/dL (2.5-4.9); TOT PROT 4.9 g/dl (6.4-8.2)
[2016-08-04] MEDS: PANTOPRAZOLE SODIUM 100 ML IVPB SCH (09:57)
[2016-08-04] MEDS ORDERED: CEFTRIAXONE 50 ML IVPB SCH (10:00)
[2016-08-04] MEDS: morphine CARPU-JECT 2 MG/1 ML DISP.SYRIN IVPUSH PRN (11:19)
--- NOTE | 2016-08-04 12:43 | PN ---
Progress Note, Physician Chief Complaint: The patient was seen in her bed. Seems comfortable. Had uneventful HD yesterday. - Current Medication List Current Medications: Active Medications Ceftriaxone Sodium (Rocephin 1gm Ivpb (Pre-Docked)) 50 mls @ 100 mls/hr IVPB DAILY [facility] Last Admin: 08/04/16 09:57 Dose: 100 mls/hr Pantoprazole Sodium (Protonix 40mg Ivpb (Pre-Docked)) 100 mls @ 200 mls/hr IVPB DAILY [facility] Last Admin: 08/04/16 09:57 Dose: 200 mls/hr Insulin Aspart (Novolog Vial Sliding Scale -) 1 vial SQ TIDAC VERONICA PRN Reason: Protocol Last Admin: 08/04/16 11:28 Dose: 2 units Morphine Sulfate (Morphine Injection -) 2 mg IVPUSH Q2H PRN PRN Reason: PAIN Last Admin: 08/04/16 11:19 Dose: 2 mg Ondansetron HCl (Zofran Injection) 8 mg IVPB Q6H-IV VERONICA Last Admin: 08/04/16 09:56 Dose: 8 mg - Objective Vital Signs: Vital Signs Temperature 98.4 F 08/04/16 06:00 Pulse Rate 91 H 08/04/16 06:00 Respiratory Rate 14 08/04/16 06:00 Blood Pressure 143/57 08/04/16 06:00 O2 Sat by Pulse Oximetry (%) 100 08/03/16 19:52 Constitutional: Yes: No Distress, Anxious Eyes: Yes: Conjunctiva Clear HENT: Yes: Normocephalic Neck: Yes: Trachea Midline Respiratory: Yes: CTA Bilaterally, Diminished Gastrointestinal: Yes: Normal Bowel Sounds, Other (Biliary drain is functioning well.) Genitourinary: No: Anuria, Bladder Distention, CVA Tenderness - Right Edema: No Labs: CBC, BMP 08/04/16 06:00 08/04/16 06:00 INR, PTT INR 0.99 (0.82-1.09) 08/01/16 17:41 Problem List - Problems (1) Acute renal failure Code(s): N17.9 - ACUTE KIDNEY FAILURE, UNSPECIFIED Qualifiers: Acute renal failure type: unspecified Qualified Code(s): N17.9 - Acute kidney failure, unspecified (2) Coffee ground emesis Code(s): K92.0 - HEMATEMESIS (3) History of biliary stent insertion Code(s): Z98.890 - OTHER SPECIFIED POSTPROCEDURAL STATES (4) DKA (diabetic ketoacidosis) Code(s): E13.10 - OTH DIABETES MELLITUS WITH KETOACIDOSIS WITHOUT COMA Qualifiers: Diabetes mellitus type: due to underlying condition Diabetes mellitus complication detail: without coma Qualified Code(s): E08.10 - Diabetes mellitus due to underlying condition with ketoacidosis without coma (5) Pancreatic cancer Code(s): C25.9 - MALIGNANT NEOPLASM OF PANCREAS, UNSPECIFIED Assessment/Plan 85 y/o female, Croatian speaking, has Pancreatic mass, s/p biliary drainage. Acute Kidney injury, requiring HD . Has had HD yesterday from a femoral catheter. Patient has some improvement in the urine output, but this has not been translated into improved Renal functions. Family to decide on continued HD. Louisa Muir MD
--- NOTE | 2016-08-04 13:09 | PN ---
Progress Note (short form) - Note Progress Note: Patient is feeling better, with no acute distress. Temperature 98.4 F 08/04/16 06:00 Pulse Rate 91 H 08/04/16 06:00 Respiratory Rate 14 08/04/16 06:00 Blood Pressure 143/57 08/04/16 06:00 O2 Sat by Pulse Oximetry (%) 100 08/03/16 19:52 GENERAL: Awake, alert, and in no acute distress. EYES: perrla, eomi ENT: oropharynx clear without exudates, poor dentition. Moist mucous membranes. LUNGS: Breath sounds equal, clear to auscultation bilaterally. No wheezes, and no crackles. No accessory muscle use. HEART: Regular rate and rhythm, normal S1 and S2 with systolic murmur. ABDOMEN: Soft, NT, ND, no guarding. biliary drain in place RUQ with dark brown non-bloody drainage EXTREMITIES: + dp pulses, warm, well-perfused. no erythema/edema. pulses are positive NEUROLOGICAL: Normal speech. moving all extremities freely, muscle tone intact in arms and b/l LE, facial symmetry. CBCD WBC 7.7 K/mm3 (4.0-10.0) 08/04/16 06:00 RBC 2.94 M/mm3 (3.60-5.2) L 08/04/16 06:00 Hgb 8.3 GM/dL (10.7-15.3) L 08/04/16 06:00 Hct 26.1 % (32.4-45.2) L 08/04/16 06:00 MCV 88.7 fl (80-96) 08/04/16 06:00 MCHC 32.0 g/dl (32.0-36.0) 08/04/16 06:00 RDW 14.7 % (11.6-15.6) 08/04/16 06:00 Plt Count 103 K/MM3 (134-434) L D 08/04/16 06:00 MPV 8.9 fl (7.5-11.1) 08/04/16 06:00 CMP Sodium 140 mmol/L (136-145) 08/04/16 06:00 Potassium 4.0 mmol/L (3.5-5.1) 08/04/16 06:00 Chloride 99 mmol/L (98-107) 08/04/16 06:00 Carbon Dioxide 31 mmol/L (21-32) 08/04/16 06:00 Anion Gap 10 (8-16) 08/04/16 06:00 BUN 33 mg/dL (7-18) H D 08/04/16 06:00 Creatinine 4.3 mg/dL (0.55-1.02) H D 08/04/16 06:00 Creat Clearance w eGFR 9.74 (>60) 08/04/16 06:00 Random Glucose 191 mg/dL (74-106) H 08/04/16 06:00 Calcium 7.5 mg/dL (8.5-10.1) L 08/04/16 06:00 Total Bilirubin 0.6 mg/dL (0.2-1.0) 08/04/16 06:00 AST 24 U/L (15-37) D 08/04/16 06:00 ALT 16 U/L (12-78) 08/04/16 06:00 Alkaline Phosphatase 104 U/L (45-117) 08/04/16 06:00 Total Protein 4.9 g/dl (6.4-8.2) L 08/04/16 06:00 Albumin 1.9 g/dl (3.4-5.0) L 08/04/16 06:00 Current Medications Generic Name Dose Route Start Last Admin Trade Name Freq PRN Reason Stop Dose Admin Ceftriaxone Sodium 50 mls @ 100 mls/hr 08/04/16 10:00 08/04/16 09:57 Rocephin 1gm Ivpb (Pre-Docked) IVPB 100 mls/hr DAILY VERONICA Administration Pantoprazole Sodium 100 mls @ 200 mls/hr 08/04/16 10:00 08/04/16 09:57 Protonix 40mg Ivpb (Pre-Docked) IVPB 200 mls/hr DAILY VERONICA Administration Insulin Aspart 1 vial 08/04/16 07:00 08/04/16 11:28 Novolog Vial Sliding Scale - SQ 2 units TIDAC VERONICA Administration Protocol Morphine Sulfate 2 mg 08/03/16 23:58 08/04/16 11:19 Morphine Injection - IVPUSH 2 mg Q2H PRN Administration PAIN Ondansetron HCl 8 mg 08/04/16 03:00 08/04/16 09:56 Zofran Injection IVPB 8 mg Q6H-IV VERONICA Administration Home Medications Medication Instructions Recorded Amlodipine Besylate [Norvasc -] 10 mg PO DAILY 06/03/16 Calcium Carbonate/Vitamin D3 1 each PO DAILY 06/03/16 [Calcium 600 + Vit D Tablet] Clopidogrel Bisulfate [Clopidogrel] 75 mg PO DAILY 06/03/16 Furosemide [Lasix] 20 mg PO DAILY 06/03/16 Losartan Potassium [Cozaar] 100 mg PO DAILY 06/03/16 Simvastatin [Zocor -] 20 mg PO HS 06/03/16 Insulin (Levemir) [Levemir Flexpen 20 units SQ DAILY MDD 20 U night 06/21/16 -] Insulin (Novolog) [Novolog Flexpen 0 units SQ ACHS MDD 7 U lunch time 06/21/16 -] Cyanocobalamin (Vitamin B-12) 2,500 mcg PO DAILY 08/01/16 [Vitamin B12] Multivitamins [Tab-A-Vit -] 1 tab PO DAILY 08/01/16 08/01/16 19:37 Urine - Urine Mccullough Urine Culture - Preliminary Group D Strep Or Entero Coccus 08/01/16 19:12 Blood - Peripheral Venous Blood Culture - Preliminary NO GROWTH OBTAINED AFTER 24 HOURS, INCUBATION TO CONTINUE FOR 4 DAYS. 08/01/16 19:12 Blood - Peripheral Venous Blood Culture - Preliminary NO GROWTH OBTAINED AFTER 24 HOURS, INCUBATION TO CONTINUE FOR 4 DAYS. ASSESSMENT AND PLAN: 85 yr old Yakut speaking woman with biliary drain, enlarged pancreatic head, HTN, HLD, DM, osteoporosis, presented to the ED with coffee ground emesis for two days. Transferred to ICU for AMS, RANJANA and metabolic acidosis requiring emergent dialysis. #Acute renal failure with Metabolic Acidosis s/p dialysis improving BUN/Cr, on the case , patient txed out from ICU # Acute UTI-Group D strep/Enterococcus, on Levaquin sensitive to, Id consult . # Coffee ground emesis x 4 , on Protonix drip ;Gi consult ; clear liquid diet. # Pancreatic cancer- Failed ERCP with a stent and attemped an IR drainage as per patient's son-in-law ;Garsia [phone]. pig tail catheter in place draining yellow brownish fluid- 250mls over 24 hrs. Patient's discharge summary from [facility] attached in the file. #DM on sliding scale with coverage # DVT Px : On Scd's, heparin not given due to GI bleed. GI px: On Protonix drip # Code Status: Full Code Daughter's info; Ms. CHAVEZ- [phone]. Please call Ms. Rosanne Damico [phone] who speaks Nigerian. Family consented to discuss about patients medical condition with Ms. Lay. Health Care Proxy. Mr. Anatoly Hannon (Eldest son- [phone]). Visit type - Emergency Visit Emergency Visit: Yes ED Registration Date: 08/02/16 Care time: The patient presented to the Emergency Department on the above date and was hospitalized for further evaluation of their emergent condition. - New Patient This patient is new to me today: No - Critical Care Critical Care patient: No
[2016-08-04 16:15] LABS: HEP B SURFACE AB Reactive (.)
[2016-08-05] MEDS: INSULIN SLIDING SCALE (NOVOLOG) 1 VIAL SQ SCH ×3 (06:46→17:13)
--- NOTE | 2016-08-05 08:43 | PN ---
Progress Note (short form) - Note Progress Note: ID consult dictated imp/reccd 85 year old Romansh speaking female with admitted with probable pancreatic cancer and external biliary drain admitted with coffee ground emesis and weakness. 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
[2016-08-05] MEDS: PANTOPRAZOLE SODIUM 100 ML IVPB SCH (10:35)
--- NOTE | 2016-08-05 11:29 | PN ---
Progress Note (short form) - Note Progress Note: Patient has no new complains, no nausea or vomiting. family at bedside. Vital Signs Temperature 87 F L 08/05/16 18:14 Pulse Rate 87 08/05/16 18:14 Respiratory Rate 20 08/05/16 18:14 Blood Pressure 166/55 08/05/16 18:14 O2 Sat by Pulse Oximetry (%) 95 08/05/16 09:00 GENERAL: Awake, alert, and in no acute distress. EYES: perrla, eomi ENT: oropharynx clear without exudates, poor dentition. Moist mucous membranes. LUNGS: Breath sounds equal, clear to auscultation bilaterally. No wheezes, and no crackles. No accessory muscle use. HEART: Regular rate and rhythm, normal S1 and S2 with systolic murmur. ABDOMEN: Soft, NT, not distended, normoactive bowel sounds, no guarding. biliary drain in place RUQ with dark brown non-bloody drainage EXTREMITIES: + dp pulses, warm, well-perfused. mild right calf tenderness without erythema/edema, No peripheral edema. NEUROLOGICAL: Normal speech. moving all extremities freely, muscle tone intact in arms and b/l LE, facial symmetry. CBCD WBC 7.7 K/mm3 (4.0-10.0) 08/04/16 06:00 RBC 2.94 M/mm3 (3.60-5.2) L 08/04/16 06:00 Hgb 8.3 GM/dL (10.7-15.3) L 08/04/16 06:00 Hct 26.1 % (32.4-45.2) L 08/04/16 06:00 MCV 88.7 fl (80-96) 08/04/16 06:00 MCHC 32.0 g/dl (32.0-36.0) 08/04/16 06:00 RDW 14.7 % (11.6-15.6) 08/04/16 06:00 Plt Count 103 K/MM3 (134-434) L D 08/04/16 06:00 MPV 8.9 fl (7.5-11.1) 08/04/16 06:00 CMP Sodium 140 mmol/L (136-145) 08/04/16 06:00 Potassium 4.0 mmol/L (3.5-5.1) 08/04/16 06:00 Chloride 99 mmol/L (98-107) 08/04/16 06:00 Carbon Dioxide 31 mmol/L (21-32) 08/04/16 06:00 Anion Gap 10 (8-16) 08/04/16 06:00 BUN 33 mg/dL (7-18) H D 08/04/16 06:00 Creatinine 4.3 mg/dL (0.55-1.02) H D 08/04/16 06:00 Creat Clearance w eGFR 9.74 (>60) 08/04/16 06:00 Random Glucose 191 mg/dL (74-106) H 08/04/16 06:00 Calcium 7.5 mg/dL (8.5-10.1) L 08/04/16 06:00 Total Bilirubin 0.6 mg/dL (0.2-1.0) 08/04/16 06:00 AST 24 U/L (15-37) D 08/04/16 06:00 ALT 16 U/L (12-78) 08/04/16 06:00 Alkaline Phosphatase 104 U/L (45-117) 08/04/16 06:00 Total Protein 4.9 g/dl (6.4-8.2) L 08/04/16 06:00 Albumin 1.9 g/dl (3.4-5.0) L 08/04/16 06:00 Current Medications Generic Name Dose Route Start Last Admin Trade Name Freq PRN Reason Stop Dose Admin Pantoprazole Sodium 100 mls @ 200 mls/hr 08/04/16 10:00 08/04/16 09:57 Protonix 40mg Ivpb (Pre-Docked) IVPB 200 mls/hr DAILY VERONICA Administration Insulin Aspart 1 vial 08/04/16 07:00 08/05/16 06:46 Novolog Vial Sliding Scale - SQ 2 units TIDAC VERONICA Administration Protocol Morphine Sulfate 2 mg 08/03/16 23:58 08/04/16 11:19 Morphine Injection - IVPUSH 2 mg Q2H PRN Administration PAIN A/P: 85 yr old Greenlandic speaking woman with biliary drain, enlarged pancreatic head, HTN, HLD, DM, osteoporosis, presented to the ED with coffee ground emesis for two days. Transferred to ICU for AMS, RANJANA and metabolic acidosis requiring emergent dialysis. #Acute renal failure with Metabolic Acidosis requiring HD s/p dialysis , might have another dialysis in am , on the case , due to ATN will discuss with family for further dialysis and treatment. # Acute UTI-Group D strep/Enterococcus, since patient is asymptomatic, no further antibiotic # Coffee ground emesis x 4 , on Protonix drip ;Gi consult ; clear liquid diet. # Pancreatic cancer- Failed ERCP with a stent and attemped an IR drainage as per patient's son-in-law ;Sun [phone]. pig tail catheter in place draining yellow brownish fluid- 250mls over 24 hrs. Patient's discharge summary from [facility] attached in the file. #DM on sliding scale with coverage # DVT Px : On Scd's, heparin not given due to GI bleed. GI px: On Protonix drip # Code Status: Full Code Daughter's info; Ms. CHAVEZ- [phone]. Please call Ms. Lay Mookie [phone] who speaks Mohawk. Family consented to discuss about patients medical condition with Ms. Lay. Health Care Proxy. Mr. Anatoly Hannon (Eldest son- [phone]). Visit type - Emergency Visit Emergency Visit: Yes ED Registration Date: 08/02/16 Care time: The patient presented to the Emergency Department on the above date and was hospitalized for further evaluation of their emergent condition. - New Patient This patient is new to me today: No - Critical Care Critical Care patient: No
--- NOTE | 2016-08-05 12:57 | PN ---
Progress Note, Physician Chief Complaint: The patient is in her bed. Comfortable. Family visiting. Voiding. Femoral catheter in place. Biliary drain in place... - Current Medication List Current Medications: Active Medications Pantoprazole Sodium (Protonix 40mg Ivpb (Pre-Docked)) 100 mls @ 200 mls/hr IVPB DAILY VERONICA Last Admin: 08/05/16 10:35 Dose: 200 mls/hr Insulin Aspart (Novolog Vial Sliding Scale -) 1 vial SQ TIDAC VERONICA PRN Reason: Protocol Last Admin: 08/05/16 11:35 Dose: 4 units Morphine Sulfate (Morphine Injection -) 2 mg IVPUSH Q2H PRN PRN Reason: PAIN Last Admin: 08/04/16 11:19 Dose: 2 mg - Objective Vital Signs: Vital Signs Temperature 98.1 F 08/04/16 22:00 Pulse Rate 90 08/04/16 22:00 Respiratory Rate 20 08/04/16 22:00 Blood Pressure 130/50 08/04/16 22:00 O2 Sat by Pulse Oximetry (%) 99 08/04/16 21:00 Constitutional: Yes: No Distress, Calm Eyes: Yes: Conjunctiva Clear HENT: Yes: Normocephalic Cardiovascular: Yes: Regular Rate and Rhythm, S1, S2 Respiratory: Yes: CTA Bilaterally Gastrointestinal: Yes: Hypoactive Bowel Sounds Genitourinary: No: Bladder Distention, CVA Tenderness - Left, CVA Tenderness - Right Extremities: Yes: WNL Labs: CBC, BMP 08/04/16 06:00 08/04/16 06:00 INR, PTT INR 0.99 (0.82-1.09) 08/01/16 17:41 Problem List - Problems (1) Acute renal failure Code(s): N17.9 - ACUTE KIDNEY FAILURE, UNSPECIFIED Qualifiers: Acute renal failure type: unspecified Qualified Code(s): N17.9 - Acute kidney failure, unspecified (2) Coffee ground emesis Code(s): K92.0 - HEMATEMESIS (3) History of biliary stent insertion Code(s): Z98.890 - OTHER SPECIFIED POSTPROCEDURAL STATES (4) DKA (diabetic ketoacidosis) Code(s): E13.10 - OTH DIABETES MELLITUS WITH KETOACIDOSIS WITHOUT COMA Qualifiers: Diabetes mellitus type: due to underlying condition Diabetes mellitus complication detail: without coma Qualified Code(s): E08.10 - Diabetes mellitus due to underlying condition with ketoacidosis without coma (5) Pancreatic cancer Code(s): C25.9 - MALIGNANT NEOPLASM OF PANCREAS, UNSPECIFIED Assessment/Plan 85 y/o female, German speaking, has Pancreatic mass, s/p biliary drainage. The patient had been getting HD via Femoral catheter. Had lengthy discussion with the family. They said that the patient wants to continue all the treatments that she is receiving now. Does not want to stop dialysis as per the family. I have told them that the over all prognosis is not good, and will be determined by the prognosis of the Pancreatic mass. Will plan on dialyzing her tomorrow unless the lab data has improved remarkably , and then will remove the femoral catheter. If any further dialysis is required, should consider a Permacath. Discussed with Dr. Browning. Louisa Muir MD
--- NOTE | 2016-08-05 13:05 | CONS ---
DATE OF CONSULTATION: DATE OF DICTATION: 08/05/2016 REQUESTED BY: Hospitalist service This is an 85-year-old woman. She presented on the to the emergency room with generalized weakness and coffee-ground emesis. She was found to be in acute renal failure. She was treated with fluids, without much improvement in her renal failure. She had no fevers or chills. She was treated conservatively by GI for her coffee-ground emesis and did not have any further episodes. She was treated with Protonix. I am asked to see her for possible UTI. The ER sent cultures, and the urine culture is now growing enterococcus. The patient has a urinalysis that is negative for leukocytes and has 6 white cells. She is awake and alert. She speaks Mongolian. I tried to use [employer] to talk to her. She is oriented to the hospital and does not wish to speak to the medical interpreter. She keeps handing the phone back to me and refuses to talk. She is resting quite comfortably. Her past medical history is notable for suspected pancreatic malignancy with enlarged pancreatic head and dilated biliary tree. She is status post external biliary drain placement in [place] in June. She has had no fevers or chills since admission. She was started on the on ceftriaxone for possible UTI. Her past medical history is notable for presumed pancreatic cancer with placement of external biliary drain. She has a history of diabetes. No other history is known. Past medical history is also notable for hypertension, hyperlipidemia, as well as diabetes and osteoporosis. She has no known drug allergies. Her medications at home include amlodipine, Plavix, Lasix, losartan, simvastatin, insulin, B12, and multivitamins. Family history I could not obtain. SOCIAL HISTORY She was apparently living on her own and has a home health aide. She is only Mongolian speaking. REVIEW OF SYSTEMS Not obtainable. The nurse reports she has been resting comfortably. A Mccullough catheter was placed to monitor urine output, and she has been in no distress and tolerating clear liquids. PHYSICAL EXAMINATION: General: She is a thin woman in no acute distress. Vital Signs: Her temperature is 98.1. Pulse of 90. Blood pressure 130/50. Respiratory rate is 20. She weighs 106 pounds. HEENT: She is normocephalic. Her eyes are anicteric. Neck: Supple. Lungs: Clear to auscultation. Heart: Regular rate and rhythm. Abdomen: Soft. She has a biliary drain with clear bile. She has no suprapubic pain or CVA tenderness. She has a Mccullough with clear urine. Extremities: Without edema. Labs today are notable for a white count of 7, hemoglobin 8.3. BUN 33, creatinine 4.3; on admission they were BUN 97 and creatinine 9.8. Her urinalysis, as stated before, had 2+ protein, 1+ blood, and negative leukocyte esterase. Her blood cultures are negative. Urine culture from admission is growing enterococcus. CAT scan of the abdomen and pelvis done on admission showed the percutaneous biliary drain and an enlarged pancreatic head. She had an x-ray done that was negative for infiltrate, and a renal sonogram that showed no hydronephrosis. In summary, this is an elderly lady, no signs of urinary tract infection, started on ceftriaxone for possible UTI, and has received this for 48 hours. She is quite asymptomatic. Given the urinalysis which is quite benign, I think there is no need to treat for UTI. If okay with Nephrology, I would remove her Mccullough catheter. I attempted to use [employer] to talk with her but the patient refused to participate. Number 2, acute renal failure, on dialysis via femoral Shiley: Family to decide about whether they wish to continue dialysis. Number 3, pancreatic mass, probable pancreatic cancer, with external biliary drain. Please call back if needed. MARISSA TIERNEY M.D. [id number]
--- NOTE | 2016-08-05 16:22 | PN ---
Progress Note (short form) - Note Progress Note: Patient seen and examined Prior notes reviewed Femoral catheter and biliary drainage via catheter. Last Vital Signs Temp Pulse Resp BP Pulse Ox 98.1 F 88 20 139/50 99 08/05/16 14:40 08/05/16 14:40 08/05/16 14:40 08/05/16 14:40 08/04/16 21:00 HEENT: [place], EOM Intact Oropharynx: No thrush, No mucositis, upper and lower plates Cor: RSR, No murmurs, No gallops Lungs: rales at bases Abd: Soft, Normal bowel sounds, No organomegaly, biliiary drainage catheter Femoral catheter Ext:No significant edema Skin: No rashes, Integument intact CBC, BMP 08/04/16 06:00 08/04/16 06:00 Current Medications Generic Name Dose Route Start Last Admin Trade Name Freq PRN Reason Stop Dose Admin Pantoprazole Sodium 100 mls @ 200 mls/hr 08/04/16 10:00 08/05/16 10:35 Protonix 40mg Ivpb (Pre-Docked) IVPB 200 mls/hr DAILY VERONICA Administration Insulin Aspart 1 vial 08/04/16 07:00 08/05/16 11:35 Novolog Vial Sliding Scale - SQ 4 units TIDAC VERONICA Administration Protocol Morphine Sulfate 2 mg 08/03/16 23:58 08/04/16 11:19 Morphine Injection - IVPUSH 2 mg Q2H PRN Administration PAIN Impression: RANJANA HD Anemia Thrombocytopenia Pancreatic mass S/P coffe ground emesis No definitive diagnosis on pancreatic lesion ?? aggressiveness of pursuit
[2016-08-06] MEDS: morphine CARPU-JECT 2 MG/1 ML DISP.SYRIN IVPUSH PRN (00:49)
[2016-08-06] MEDS: INSULIN SLIDING SCALE (NOVOLOG) 1 VIAL SQ SCH ×3 (06:31→17:15)
[2016-08-06 07:54] LABS: CALCIUM 8.4 mg/dL (8.5-10.1); COCKROFT - GAULT 4.9045; CREATININE 6.2 mg/dL (0.55-1.02)
[2016-08-06 07:56] LABS: BILIRUBIN,TOTAL 0.5 mg/dL (0.2-1.0); TOT PROT 5.1 g/dl (6.4-8.2)
[2016-08-06 09:06] LABS: BASOPHIL 0.5 % (0-2.0); EOSINOPHIL 0.6 % (0-4.5); MCH 28.5 pg (25.7-33.7); MEAN CELL VOLUME 89.1 fl (80-96); MEAN PLT VOLUME 9.3 fl (7.5-11.1); NEUTROPHILS 83.7 % (42.8-82.8); PLATELET COUNT 125 K/MM3 (134-434); RDW 14.7 % (11.6-15.6); WHITE BLOOD COUNT 6.7 K/mm3 (4.0-10.0)
[2016-08-06] MEDS ORDERED: LEVOFLOXACIN 250 MG IVPB 50 ML IVPB SCH (10:00)
--- NOTE | 2016-08-06 11:26 | PN ---
Progress Note (short form) - Note Progress Note: Renal follow up for RANJANA Pt seen and examined at the bedside awake and alert for dialysis today no overnight events Vital Signs Temperature 98.3 F 08/06/16 09:31 Pulse Rate 86 08/06/16 09:31 Respiratory Rate 16 08/06/16 09:31 Blood Pressure 136/50 08/06/16 09:31 O2 Sat by Pulse Oximetry (%) 96 08/05/16 21:00 Intake & Output 08/03/16 08/04/16 08/05/16 08/06/16 23:59 23:59 23:59 23:59 Intake Total 1850 250 340 80 Output Total 430 450 555 215 Balance 1420 -200 -215 -135 Weight 95 lb 9 oz 106 lb 6 oz 106 lb 107 lb 3.2 oz Gen: NAD CVS: RRR, No M/R Lungs: CTA, no rales or wheeze Abd: soft NT/ND Ext: No edema, clubbing or cyanosis CBC, BMP 08/06/16 06:00 08/06/16 06:00 Current Medications Amlodipine Besylate (Norvasc -) 10 mg PO DAILY VERONICA Clopidogrel Bisulfate (Plavix -) 75 mg PO DAILY [facility] Pantoprazole Sodium (Protonix 40mg Ivpb (Pre-Docked)) 100 mls @ 200 mls/hr IVPB DAILY VERONICA Last Admin: 08/05/16 10:35 Dose: 200 mls/hr Insulin Aspart (Novolog Vial Sliding Scale -) 1 vial SQ TIDAC VERONICA PRN Reason: Protocol Last Admin: 08/06/16 06:31 Dose: 4 units Morphine Sulfate (Morphine Injection -) 2 mg IVPUSH Q2H PRN PRN Reason: PAIN Last Admin: 08/06/16 00:49 Dose: 2 mg Multivitamins/Minerals/Vitamin C (Tab-A-Vit -) 1 tab PO DAILY [facility] Non-Formulary Medication (Cyanocobalamin (Vitamin B-12) [Vitamin B12]) 2,500 mcg PO DAILY VERONICA A/P 85 year old woman with PMhx of Pancreatic Mass/lesion suspicious for Ca, Billiary obstruction s/p IR drain placement, Hypertension, Hyperlipidemia, DM who presented with N/V with coffee ground emesis and found to have BUN/Cr of 91/ 10. #Acute on Chronic Renal Failure with acidosis and suspected uremia in setting of AMS Etiology of renal failure appears to be ATN pt without signs of recovery at this time for dialysis today can d/c femoral HD catheter following dialysis after discussion with family the plan is to given dialysis prn pending discussion with oncology #Pancreatic Mass with billiary obstruction Oncology following ? diagnostic/therapeutic options Jean Tejeda DO
--- NOTE | 2016-08-06 12:11 | PN ---
Progress Note (short form) - Note Progress Note: On HD. No acute events overnight. NAD. Intake & Output 08/03/16 08/04/16 08/05/16 08/06/16 23:59 23:59 23:59 23:59 Intake Total 1850 250 340 80 Output Total 430 450 555 215 Balance 1420 -200 -215 -135 Weight 95 lb 9 oz 106 lb 6 oz 106 lb 107 lb 3.2 oz Last Vital Signs Temp Pulse Resp BP Pulse Ox 98.2 F 97 H 18 127/62 96 08/06/16 10:35 08/06/16 11:40 08/06/16 11:40 08/06/16 11:40 08/05/16 21:00 Active Medications Amlodipine Besylate (Norvasc -) 10 mg PO DAILY [facility] Clopidogrel Bisulfate (Plavix -) 75 mg PO DAILY [facility] Pantoprazole Sodium (Protonix 40mg Ivpb (Pre-Docked)) 100 mls @ 200 mls/hr IVPB DAILY [facility] Last Admin: 08/05/16 10:35 Dose: 200 mls/hr Insulin Aspart (Novolog Vial Sliding Scale -) 1 vial SQ TIDAC VERONICA PRN Reason: Protocol Last Admin: 08/06/16 12:04 Dose: Not Given Morphine Sulfate (Morphine Injection -) 2 mg IVPUSH Q2H PRN PRN Reason: PAIN Last Admin: 08/06/16 00:49 Dose: 2 mg Multivitamins/Minerals/Vitamin C (Tab-A-Vit -) 1 tab PO DAILY [facility] Non-Formulary Medication (Cyanocobalamin (Vitamin B-12) [Vitamin B12]) 2,500 mcg PO DAILY [facility] Gen: NAD at rest Heart: S1S2 Lung: decreased breath sounds at the bases Abd: soft, nontender Ext: no edema, right femoral HD catheter Laboratory Results - last 24 hr 08/05/16 08/05/16 08/05/16 12:33 17:12 21:39 WBC RBC Hgb Hct MCV MCHC RDW Plt Count MPV Neutrophils % Lymphocytes % Monocytes % Eosinophils % Basophils % Sodium Potassium Chloride Carbon Dioxide Anion Gap BUN Creatinine Creat Clearance w eGFR POC Glucometer 216 182 163 Random Glucose Calcium Total Bilirubin AST ALT Alkaline Phosphatase Total Protein Albumin 08/06/16 08/06/16 08/06/16 06:00 06:00 06:10 WBC 6.7 RBC 3.02 L Hgb 8.6 L Hct 26.9 L MCV 89.1 MCHC 32.0 RDW 14.7 Plt Count 125 L D MPV 9.3 Neutrophils % 83.7 H Lymphocytes % 9.5 Monocytes % 5.7 Eosinophils % 0.6 D Basophils % 0.5 Sodium 141 Potassium 4.4 Chloride 97 L Carbon Dioxide 24 D Anion Gap 20 H BUN 55 H D Creatinine 6.2 H D Creat Clearance w eGFR 6.39 POC Glucometer 227 Random Glucose 221 H Calcium 8.4 L Total Bilirubin 0.5 AST 17 D ALT 14 Alkaline Phosphatase 97 Total Protein 5.1 L Albumin 2.0 L ASSESSMENT AND PLAN: Suspected Pancreatic Cancer Nausea/Vomiting Acute Kidney Injury with Metabolic Acidosis requiring HD - HD per renal - monitor urine output, creatinine - monitor H/H - DVT prophylaxis Dr Thomas
--- NOTE | 2016-08-06 14:08 | PN ---
Progress Note (short form) - Note Progress Note: Neurology History of Present Illness This is an 85 yo F with PMH of gastritis (on egd 04/18/12), recently diagnosed pancreatic CA (CT abd here 06/03/16 shows large pancreatic head, distended GB and dilated biliary tree), also had ERCP 07/[address] Whittaker, then transferred to [facility] for biliary drain due to pancreatic CA, who presented with coffee ground emesis. German speaking and was in the ICU being managed for multiple medical issues and appears to have ongoing uremic encephalopathy. Patient remains calm, alert, awake, cooperative but with flat affect and minimal movements. She has since been moved to floor and getting ongoing treatment for acute tubular necrosis. Spoke with resident regarding condition. Family conversing with social work regarding placement. Active Medications Amlodipine Besylate (Norvasc -) 10 mg PO DAILY [facility] Clopidogrel Bisulfate (Plavix -) 75 mg PO DAILY VERONICA Dronabinol (Marinol -) 5 mg PO DAILY [facility] Pantoprazole Sodium (Protonix 40mg Ivpb (Pre-Docked)) 100 mls @ 200 mls/hr IVPB DAILY [facility] Last Admin: 08/05/16 10:35 Dose: 200 mls/hr Insulin Aspart (Novolog Vial Sliding Scale -) 1 vial SQ TIDAC VERONICA PRN Reason: Protocol Last Admin: 08/06/16 12:04 Dose: Not Given Morphine Sulfate (Morphine Injection -) 2 mg IVPUSH Q2H PRN PRN Reason: PAIN Last Admin: 08/06/16 00:49 Dose: 2 mg Multivitamins/Minerals/Vitamin C (Tab-A-Vit -) 1 tab PO DAILY [facility] Non-Formulary Medication (Cyanocobalamin (Vitamin B-12) [Vitamin B12]) 2,500 mcg PO DAILY [facility] Vital Signs Temperature 98.2 F 08/06/16 10:35 Pulse Rate 85 08/06/16 13:10 Respiratory Rate 18 08/06/16 13:10 Blood Pressure 95/45 08/06/16 13:10 O2 Sat by Pulse Oximetry (%) 96 08/05/16 21:00 GENERAL: lethargic, alert, oriented to self, CACHECTIC, pale, appears dry HEENT: NORMOCEPHALIC, ATRAUMATIC, PERRLA EOMI, MILD SCLERAL ICTERUS, CONJUNCTIVA CLEAR PULM: bibasilar crackles GI: SOFT, DIFFUSELY MILDLY TENDER, NONDISTENDED, NORMOACTIVE BOWEL SOUNDS, MILD HEPATOMEGALY, NO MASS, r POSTERIOR CHOLECYSTOSTOMY TUBE IN PLACE, NONERYTHEMATOUS ENTRY SITE, CLEAN DRESSING, DARK BROWN LIQUID BAG CONTENTS NEURO: CRANIAL NERVES GROSSLY INTACT SKIN: DECREASED TURGOR EXTREMITIES: NO EDEMA, NO CALF TENDERNESS CBCD WBC 6.7 K/mm3 (4.0-10.0) 08/06/16 06:00 RBC 3.02 M/mm3 (3.60-5.2) L 08/06/16 06:00 Hgb 8.6 GM/dL (10.7-15.3) L 08/06/16 06:00 Hct 26.9 % (32.4-45.2) L 08/06/16 06:00 MCV 89.1 fl (80-96) 08/06/16 06:00 MCHC 32.0 g/dl (32.0-36.0) 08/06/16 06:00 RDW 14.7 % (11.6-15.6) 08/06/16 06:00 Plt Count 125 K/MM3 (134-434) L D 08/06/16 06:00 MPV 9.3 fl (7.5-11.1) 08/06/16 06:00 CMP Sodium 141 mmol/L (136-145) 08/06/16 06:00 Potassium 4.4 mmol/L (3.5-5.1) 08/06/16 06:00 Chloride 97 mmol/L (98-107) L 08/06/16 06:00 Carbon Dioxide 24 mmol/L (21-32) D 08/06/16 06:00 Anion Gap 20 (8-16) H 08/06/16 06:00 BUN 55 mg/dL (7-18) H D 08/06/16 06:00 Creatinine 6.2 mg/dL (0.55-1.02) H D 08/06/16 06:00 Creat Clearance w eGFR 6.39 (>60) 08/06/16 06:00 Calcium 8.4 mg/dL (8.5-10.1) L 08/06/16 06:00 Total Bilirubin 0.5 mg/dL (0.2-1.0) 08/06/16 06:00 AST 17 U/L (15-37) D 08/06/16 06:00 ALT 14 U/L (12-78) 08/06/16 06:00 Alkaline Phosphatase 97 U/L (45-117) 08/06/16 06:00 Total Protein 5.1 g/dl (6.4-8.2) L 08/06/16 06:00 Albumin 2.0 g/dl (3.4-5.0) L 08/06/16 06:00 Plan: 85 yo F with PMH of gastritis (on egd 04/18/12), recently diagnosed pancreatic CA (CT abd here 06/03/16 shows large pancreatic head, distended GB and dilated biliary tree), also had ERCP 07/[address] Whittaker, then transferred to [facility] for biliary drain due to pancreatic CA, who presented with coffee ground emesis. German speaking and was in the ICU being managed for multiple medical issues and appears to have ongoing uremic encephalopathy. Patient remains calm, alert, awake, cooperative but with flat affect and minimal movements. Will hold off on imaging of head for now Mental status intact and undergoing Continued managment of uremia Nephrology following, hemodialysis as per them Neurologically stable Family discussing next steps with neonatal social worker
[2016-08-06] MEDS: PANTOPRAZOLE SODIUM 100 ML IVPB SCH (14:44)
[2016-08-06] MEDS: MULTIVITAMINS (DAILY MVI) TABLET (FP) PO SCH (14:44)
[2016-08-06] MEDS: CLOPIDOGREL BISULFATE 75 MG TABLET (FP) PO SCH (14:45)
[2016-08-06] MEDS: amLODIPine BESYLATE 10 MG TABLET (FP) PO SCH (14:45)
[2016-08-06] MEDS: DRONABINOL 5 MG CAPSULE PO SCH (14:45)
--- NOTE | 2016-08-06 16:29 | PN ---
Physical Exam: SUBJECTIVE: Patient seen and examined at bed side this morning at the dialysis room. Patient was being dialysed. Family members were at bedside and patient interacted with them more actively than before, she was able to communicate better. Patient told the family members that she has abdominal pain and wants to go home. OBJECTIVE: Vital Signs Period Temp Pulse Resp BP Sys/Luo Pulse Ox Last 24 Hr 87 F-98.5 F 60-103 16-20 95-169/40-84 96 GENERAL: Elderly female, lying in bed more alert, and not oriented to time, place and person, in no acute distress. FEMORAL LINE REMOVED ON 08/06/16 at bed side. HEAD: Normal with no signs of trauma. EYES: EOM intact, pallor + but no icterus. ENT: Ears normal, dry mucous membranes. NECK: Trachea midline, full range of motion, supple. LUNGS: Breath sounds equal, clear to auscultation bilaterally, no wheezes, no crackles, no accessory muscle use. HEART: Regular rate and rhythm, S1, S2 with systolic murmur. ABDOMEN: Pig tail catheter in place, Soft, nontender, nondistended, normoactive bowel sounds, no guarding, no rebound, no hepatosplenomegaly, no masses. EXTREMITIES: 2+ pulses, warm, well-perfused, no edema. NEUROLOGICAL: Non verbal. Gait not observed. PSYCH: Normal mood, normal affect. SKIN: Warm, dry, normal turgor, no rashes or lesions noted Laboratory Results - last 24 hr 08/05/16 08/05/16 08/06/16 17:12 21:39 06:00 WBC RBC Hgb Hct MCV MCHC RDW Plt Count MPV Neutrophils % Lymphocytes % Monocytes % Eosinophils % Basophils % Sodium 141 Potassium 4.4 Chloride 97 L Carbon Dioxide 24 D Anion Gap 20 H BUN 55 H D Creatinine 6.2 H D Creat Clearance w eGFR 6.39 POC Glucometer 182 163 Random Glucose 221 H Calcium 8.4 L Total Bilirubin 0.5 AST 17 D ALT 14 Alkaline Phosphatase 97 Total Protein 5.1 L Albumin 2.0 L 08/06/16 08/06/16 06:00 06:10 WBC 6.7 RBC 3.02 L Hgb 8.6 L Hct 26.9 L MCV 89.1 MCHC 32.0 RDW 14.7 Plt Count 125 L D MPV 9.3 Neutrophils % 83.7 H Lymphocytes % 9.5 Monocytes % 5.7 Eosinophils % 0.6 D Basophils % 0.5 Sodium Potassium Chloride Carbon Dioxide Anion Gap BUN Creatinine Creat Clearance w eGFR POC Glucometer 227 Random Glucose Calcium Total Bilirubin AST ALT Alkaline Phosphatase Total Protein Albumin Active Medications Generic Name Dose Route Start Last Admin Trade Name Freq PRN Reason Stop Dose Admin Amlodipine Besylate 10 mg 08/06/16 10:00 08/06/16 14:45 Norvasc - PO 10 mg DAILY VERONICA Administration Clopidogrel Bisulfate 75 mg 08/06/16 10:00 08/06/16 14:45 Plavix - PO 75 mg DAILY VERONICA Administration Dronabinol 5 mg 08/06/16 13:30 08/06/16 14:45 Marinol - PO 5 mg DAILY VERONICA Administration Pantoprazole Sodium 100 mls @ 200 mls/hr 08/04/16 10:00 08/06/16 14:44 Protonix 40mg Ivpb (Pre-Docked) IVPB 200 mls/hr DAILY VERONICA Administration Insulin Aspart 1 vial 08/04/16 07:00 08/06/16 12:04 Novolog Vial Sliding Scale - SQ Not Given TIDAC [facility] Protocol Morphine Sulfate 2 mg 08/03/16 23:58 08/06/16 00:49 Morphine Injection - IVPUSH 2 mg Q2H PRN Administration PAIN Multivitamins/Minerals/Vitamin C 1 tab 08/06/16 10:00 08/06/16 14:44 Tab-A-Vit - PO 1 tab DAILY VERONICA Administration Non-Formulary Medication 2,500 mcg 08/06/16 10:00 Cyanocobalamin (Vitamin B-12) [Vitamin B12] PO DAILY [facility] ASSESSMENT/PLAN: Patient is a 85 year old female with PMH of Hypertension, Hyperlipidemia, Diabetes Mellitus, pancreatic ca, osteoporosis presents to the ER with coffee ground emesis x4 over two days. Also found to have RANJANA on CKD. # Acute on Chronic kidney injury undergoing temporary dialysis Likely due to Acute Tubular Necrosis ( contrast induced, NSAID use for pain given the h/o pancreatic cancer, use of ARB, contrast? ) Creatinine 6.2, baseline 1.2 Dialysis done today, to be done as needed. Femoral line removed. Strict I's and O's Patients family agreed to continue dialysis when she goes to Hospice care facility. # Possible Upper GI bleed- c/o 4 episodes of coffee ground emesis Stared on clear liquid diabetic diet On Protonix Failed ERCP with a stent and attemped an IR drainage as per patients son-in- law son-in law Luigi [phone] Patient's discharge summary from [facility] attached in the file. # Altered mental status-Improving Could be due to uremia vs metastasis from pancreatic cancer # Pancreatic cancer- Family members do not want any aggressive treatment, they decided to take her to hospice. Palliative care. # Diabetes Mellitus- with hypoglycemia HbA1c 7.9 BGM Q2H Insulin sliding scale as directed only # FEN Not on IV fluids Electrolytes to be repeated Clear liquid diabetic diet # Prophylaxis For DVT: On Scd's, heparin not given due to GI bleed For GI: On Protonix # Code Status: Full Code # Dispo: In Med-surg. Duration of stay unknown. Had a family meeting today( with daughter, son, granddaughter, daughter in law) , discussed about the further treatment and management. They decided to take the patient to hospice. Patients eldest son who is the HCP will come to the hospital tomorrow. Illness, Investigation and Plan of care explained to the patient's family members. They verbalized understanding. Daughter's info; Ms. CHAVEZ- [phone]. Please call Rosanne Mookie who speaks Azeri. Family consented to discuss about patients medical condition with Ms. Lay. HCP: Mr. Anatoly Hannon (Eldest son- [phone]). Case seen and discussed with Dr. Browning. Visit type - Emergency Visit Emergency Visit: Yes ED Registration Date: 08/02/16 Care time: The patient presented to the Emergency Department on the above date and was hospitalized for further evaluation of their emergent condition. - New Patient This patient is new to me today: No - Critical Care Critical Care patient: No
--- NOTE | 2016-08-06 20:36 | PN ---
Teaching Attending Note Name of Resident: Lawanda Baird ATTENDING PHYSICIAN STATEMENT I saw and evaluated the patient. I reviewed the resident's note and discussed the case with the resident. I agree with the resident's findings and plan as documented. SUBJECTIVE: Patient is feeling better, more with it. OBJECTIVE: Vital Signs Temperature 98.7 F 08/06/16 18:00 Pulse Rate 97 H 08/06/16 18:00 Respiratory Rate 20 08/06/16 18:00 Blood Pressure 126/84 08/06/16 18:00 O2 Sat by Pulse Oximetry (%) 96 08/05/16 21:00 CBCD WBC 6.7 K/mm3 (4.0-10.0) 08/06/16 06:00 RBC 3.02 M/mm3 (3.60-5.2) L 08/06/16 06:00 Hgb 8.6 GM/dL (10.7-15.3) L 08/06/16 06:00 Hct 26.9 % (32.4-45.2) L 08/06/16 06:00 MCV 89.1 fl (80-96) 08/06/16 06:00 MCHC 32.0 g/dl (32.0-36.0) 08/06/16 06:00 RDW 14.7 % (11.6-15.6) 08/06/16 06:00 Plt Count 125 K/MM3 (134-434) L D 08/06/16 06:00 MPV 9.3 fl (7.5-11.1) 08/06/16 06:00 CMP Sodium 141 mmol/L (136-145) 08/06/16 06:00 Potassium 4.4 mmol/L (3.5-5.1) 08/06/16 06:00 Chloride 97 mmol/L (98-107) L 08/06/16 06:00 Carbon Dioxide 24 mmol/L (21-32) D 08/06/16 06:00 Anion Gap 20 (8-16) H 08/06/16 06:00 BUN 55 mg/dL (7-18) H D 08/06/16 06:00 Creatinine 6.2 mg/dL (0.55-1.02) H D 08/06/16 06:00 Creat Clearance w eGFR 6.39 (>60) 08/06/16 06:00 Random Glucose 221 mg/dL (74-106) H 08/06/16 06:00 Calcium 8.4 mg/dL (8.5-10.1) L 08/06/16 06:00 Total Bilirubin 0.5 mg/dL (0.2-1.0) 08/06/16 06:00 AST 17 U/L (15-37) D 08/06/16 06:00 ALT 14 U/L (12-78) 08/06/16 06:00 Alkaline Phosphatase 97 U/L (45-117) 08/06/16 06:00 Total Protein 5.1 g/dl (6.4-8.2) L 08/06/16 06:00 Albumin 2.0 g/dl (3.4-5.0) L 08/06/16 06:00 Current Medications Generic Name Dose Route Start Last Admin Trade Name Freq PRN Reason Stop Dose Admin Amlodipine Besylate 10 mg 08/06/16 10:00 08/06/16 14:45 Norvasc - PO 10 mg DAILY VERONICA Administration Clopidogrel Bisulfate 75 mg 08/06/16 10:00 08/06/16 14:45 Plavix - PO 75 mg DAILY VERONICA Administration Dronabinol 5 mg 08/06/16 13:30 08/06/16 14:45 Marinol - PO 5 mg DAILY VERONICA Administration Pantoprazole Sodium 100 mls @ 200 mls/hr 08/04/16 10:00 08/06/16 14:44 Protonix 40mg Ivpb (Pre-Docked) IVPB 200 mls/hr DAILY [facility] Administration Insulin Aspart 1 vial 08/04/16 07:00 08/06/16 17:15 Novolog Vial Sliding Scale - SQ 2 units TIDAC [facility] Administration Protocol Morphine Sulfate 2 mg 08/03/16 23:58 08/06/16 00:49 Morphine Injection - IVPUSH 2 mg Q2H PRN Administration PAIN Multivitamins/Minerals/Vitamin C 1 tab 08/06/16 10:00 08/06/16 14:44 Tab-A-Vit - PO 1 tab DAILY VERONICA Administration Non-Formulary Medication 2,500 mcg 08/06/16 10:00 Cyanocobalamin (Vitamin B-12) [Vitamin B12] PO DAILY [facility] Home Medications Medication Instructions Recorded RX: Amlodipine Besylate [Norvasc -] 10 mg PO DAILY 06/03/16 RX: Calcium Carbonate/Vitamin D3 1 each PO DAILY 06/03/16 [Calcium 600 + Vit D Tablet] RX: Clopidogrel Bisulfate 75 mg PO DAILY 06/03/16 [Clopidogrel] RX: Furosemide [Lasix] 20 mg PO DAILY 06/03/16 RX: Losartan Potassium [Cozaar] 100 mg PO DAILY 06/03/16 RX: Simvastatin [Zocor -] 20 mg PO HS 06/03/16 RX: Insulin (Levemir) [Levemir 20 units SQ DAILY MDD 20 U night 06/21/16 Flexpen -] RX: Insulin (Novolog) [Novolog 0 units SQ ACHS MDD 7 U lunch time 06/21/16 Flexpen -] Cyanocobalamin (Vitamin B-12) 2,500 mcg PO DAILY 08/01/16 [Vitamin B12] Multivitamins [Tab-A-Vit -] 1 tab PO DAILY 08/01/16 ASSESSMENT AND PLAN: 85 yr old Pashto speaking woman with biliary drain, enlarged pancreatic head, HTN, HLD, DM, osteoporosis, presented to the ED with coffee ground emesis for two days. Transferred to ICU for AMS, RANJANA and metabolic acidosis requiring emergent dialysis. #Acute renal failure with Metabolic Acidosis requiring HD s/p dialysis , will have another dialysis today and the shiley will be removed , on the case , due to ATN , will discuss with family for further dialysis and treatment. # Acute UTI-Group D strep/Enterococcus, since patient is asymptomatic, no further antibiotic # Coffee ground emesis x 4 , on Protonix drip ;Gi consult ; clear liquid diet. # Pancreatic cancer- Failed ERCP with a stent and attemped an IR drainage as per patient's son-in-law ;Sun [phone]. pig tail catheter in place draining yellow brownish fluid- 250mls over 24 hrs. Patient's discharge summary from [facility] attached in the file. #DM on sliding scale with coverage # DVT Px : On Scd's, heparin not given due to GI bleed. GI px: On Protonix drip # Code Status: Full Code Daughter's info; Ms. CHAVEZ- [phone]. Please call Ms. Rosanne Damico [phone] who speaks Botswanan. Family consented to discuss about patients medical condition with Ms. Lay. Health Care Proxy. Mr. Anatoly Hannon (Eldest son- [phone]). Patient has no appetite will start her on Marinol
[2016-08-07] MEDS: INSULIN SLIDING SCALE (NOVOLOG) 1 VIAL SQ SCH ×3 (06:49→18:41)
[2016-08-07 07:41] LABS: BASOPHIL 0.4 % (0-2.0); EOSINOPHIL 0.4 % (0-4.5); MCH 28.8 pg (25.7-33.7); MCHC 32.4 g/dl (32.0-36.0); MEAN CELL VOLUME 88.9 fl (80-96); MEAN PLT VOLUME 9.3 fl (7.5-11.1); NEUTROPHILS 80.5 % (42.8-82.8); PLATELET COUNT 113 K/MM3 (134-434); RDW 14.8 % (11.6-15.6); WHITE BLOOD COUNT 4.8 K/mm3 (4.0-10.0)
[2016-08-07 08:02] LABS: ALBUMIN 2.1 g/dl (3.4-5.0); CALCIUM 8.1 mg/dL (8.5-10.1); MAGNESIUM 2.1 mg/dL (1.8-2.4)
[2016-08-07 08:05] LABS: BILIRUBIN,TOTAL 0.6 mg/dL (0.2-1.0); COCKROFT - GAULT 6.29; CREATININE 4.6 mg/dL (0.55-1.02); PHOSPHOROUS 5.2 mg/dL (2.5-4.9); TOT PROT 5.4 g/dl (6.4-8.2)
--- NOTE | 2016-08-07 10:07 | PN ---
Physical Exam: SUBJECTIVE: Patient seen and examined at bed side this morning. She was sitting comfortably in bed and trying to eat. Family member were at bed side. Patient said she wants to go home. No acute overnight events. OBJECTIVE: Vital Signs Period Temp Pulse Resp BP Sys/Luo Pulse Ox Last 24 Hr 97.8 F-98.7 F 60-103 16-20 95-169/40-84 98 GENERAL: Elderly female, sitting in bed eating, more alert, and oriented to time , place and person, in no acute distress. FEMORAL LINE REMOVED ON 08/06/16 at bed side. HEAD: Normal with no signs of trauma. EYES: EOM intact, pallor + but no icterus. ENT: Ears normal, dry mucous membranes. NECK: Trachea midline, full range of motion, supple. LUNGS: Breath sounds equal, clear to auscultation bilaterally, no wheezes, no crackles, no accessory muscle use. HEART: Regular rate and rhythm, S1, S2 with systolic murmur. ABDOMEN: Pig tail catheter in place, Soft, nontender, nondistended, normoactive bowel sounds, no guarding, no rebound, no hepatosplenomegaly, no masses. EXTREMITIES: 2+ pulses, warm, well-perfused, no edema. NEUROLOGICAL: Normal speech. Gait not observed. PSYCH: Normal mood, normal affect. SKIN: Warm, dry, normal turgor, no rashes or lesions noted Laboratory Results - last 24 hr 08/06/16 08/06/16 08/07/16 17:10 22:08 06:00 WBC 4.8 RBC 2.88 L Hgb 8.3 L Hct 25.6 L MCV 88.9 MCHC 32.4 RDW 14.8 Plt Count 113 L MPV 9.3 Neutrophils % 80.5 Lymphocytes % 11.6 D Monocytes % 7.1 Eosinophils % 0.4 Basophils % 0.4 Sodium Potassium Chloride Carbon Dioxide Anion Gap BUN Creatinine Creat Clearance w eGFR POC Glucometer 199 178 Random Glucose Calcium Phosphorus Magnesium Total Bilirubin AST ALT Alkaline Phosphatase Total Protein Albumin 08/07/16 08/07/16 06:00 06:44 WBC RBC Hgb Hct MCV MCHC RDW Plt Count MPV Neutrophils % Lymphocytes % Monocytes % Eosinophils % Basophils % Sodium 141 Potassium 3.9 Chloride 99 Carbon Dioxide 26 Anion Gap 16 BUN 38 H D Creatinine 4.6 H D Creat Clearance w eGFR 9.01 POC Glucometer 230 Random Glucose 247 H Calcium 8.1 L Phosphorus 5.2 H Magnesium 2.1 Total Bilirubin 0.6 AST 15 ALT 15 Alkaline Phosphatase 92 Total Protein 5.4 L Albumin 2.1 L Active Medications Generic Name Dose Route Start Last Admin Trade Name Markq PRN Reason Stop Dose Admin Amlodipine Besylate 10 mg 08/06/16 10:00 08/06/16 14:45 Norvasc - PO 10 mg DAILY VERONICA Administration Clopidogrel Bisulfate 75 mg 08/06/16 10:00 08/06/16 14:45 Plavix - PO 75 mg DAILY VERONICA Administration Dronabinol 5 mg 08/06/16 13:30 08/06/16 14:45 Marinol - PO 5 mg DAILY VERONICA Administration Pantoprazole Sodium 100 mls @ 200 mls/hr 08/04/16 10:00 08/06/16 14:44 Protonix 40mg Ivpb (Pre-Docked) IVPB 200 mls/hr DAILY VERONICA Administration Insulin Aspart 1 vial 08/04/16 07:00 08/07/16 06:49 Novolog Vial Sliding Scale - SQ 4 units TIDAC VERONICA Administration Protocol Multivitamins/Minerals/Vitamin C 1 tab 08/06/16 10:00 08/06/16 14:44 Tab-A-Vit - PO 1 tab DAILY VERONICA Administration Non-Formulary Medication 2,500 mcg 08/06/16 10:00 Cyanocobalamin (Vitamin B-12) [Vitamin B12] PO DAILY [facility] ASSESSMENT/PLAN: Patient is a 85 year old female with PMH of Hypertension, Hyperlipidemia, Diabetes Mellitus, pancreatic ca, osteoporosis presents to the ER with coffee ground emesis x4 over two days. Also found to have RANJANA on CKD. # Acute on Chronic kidney injury undergoing temporary dialysis Likely due to Acute Tubular Necrosis ( contrast induced, NSAID use for pain given the h/o pancreatic cancer, use of ARB, contrast? ) Creatinine improved to 4.2, baseline 1.2 Dialysis done 08/06/16, to be done as needed. Femoral line removed on . Strict I's and O's # Possible Upper GI bleed- c/o 4 episodes of coffee ground emesis Stared on clear liquid diabetic diet On Protonix Failed ERCP with a stent and attemped an IR drainage as per patients son-in- law son-in law Luigi [phone] Patient's discharge summary from [facility] attached in the file. # Altered mental status-Improving Could be due to uremia vs metastasis from pancreatic cancer # Pancreatic cancer- Family members do not want any aggressive treatment, they decided to take her to hospice. Palliative care. # Diabetes Mellitus- with hypoglycemia HbA1c 7.9 BGM Q2H Insulin sliding scale as directed only # FEN Not on IV fluids Electrolytes to be repeated Clear liquid diabetic diet # Prophylaxis For DVT: On Scd's, heparin not given due to GI bleed For GI: On Protonix # Code Status: Full Code # Dispo: In Med-surg. Duration of stay unknown. Had a family meeting on 08/06/16 ( with daughter, son, granddaughter, daughter in law), discussed about the further treatment and management. They decided to take the patient to hospice. Patients eldest son who is the HCP will come to the hospital today. Illness, Investigation and Plan of care explained to the patient's family members. They verbalized understanding. Daughter's info; Ms. CHAVZE- [phone]. Please call Ms. Lay Mookie who speaks Sinhala. Family consented to discuss about patients medical condition with Ms. Lay. HCP: Nieves Anatoly Hannon (Eldest son- [phone]). Case seen and discussed with Dr. Browning. Visit type - Emergency Visit Emergency Visit: Yes ED Registration Date: 08/02/16 Care time: The patient presented to the Emergency Department on the above date and was hospitalized for further evaluation of their emergent condition. - New Patient This patient is new to me today: No - Critical Care Critical Care patient: No
--- NOTE | 2016-08-07 10:29 | PN ---
Progress Note (short form) - Note Progress Note: S/P HD with access removal yesterday. No acute events overnight. Intake & Output 08/04/16 08/05/16 08/06/16 08/07/16 23:59 23:59 23:59 23:59 Intake Total 250 340 680 0 Output Total 450 555 475 20 Balance -200 -215 205 -20 Weight 106 lb 6 oz 106 lb 107 lb 3.2 oz 103 lb Last Vital Signs Temp Pulse Resp BP Pulse Ox 97.8 F 90 18 150/54 98 08/07/16 05:38 08/07/16 05:38 08/07/16 05:38 08/07/16 05:38 08/06/16 21:00 Active Medications Amlodipine Besylate (Norvasc -) 10 mg PO DAILY [facility] Last Admin: 08/06/16 14:45 Dose: 10 mg Clopidogrel Bisulfate (Plavix -) 75 mg PO DAILY [facility] Last Admin: 08/06/16 14:45 Dose: 75 mg Dronabinol (Marinol -) 5 mg PO DAILY [facility] Last Admin: 08/06/16 14:45 Dose: 5 mg Pantoprazole Sodium (Protonix 40mg Ivpb (Pre-Docked)) 100 mls @ 200 mls/hr IVPB DAILY [facility] Last Admin: 08/06/16 14:44 Dose: 200 mls/hr Sodium Chloride (Normal Saline -) 1,000 mls @ 42 mls/hr IV ASDIR [facility] Insulin Aspart (Novolog Vial Sliding Scale -) 1 vial SQ TIDAC [facility] PRN Reason: Protocol Last Admin: 08/07/16 06:49 Dose: 4 units Multivitamins/Minerals/Vitamin C (Tab-A-Vit -) 1 tab PO DAILY [facility] Last Admin: 08/06/16 14:44 Dose: 1 tab Non-Formulary Medication (Cyanocobalamin (Vitamin B-12) [Vitamin B12]) 2,500 mcg PO DAILY [facility] Gen: NAD at rest Heart: S1S2 Lung: decreased breath sounds at the bases Abd: soft, nontender Ext: no edema Laboratory Results - last 24 hr 08/06/16 08/06/16 08/07/16 17:10 22:08 06:00 WBC 4.8 RBC 2.88 L Hgb 8.3 L Hct 25.6 L MCV 88.9 MCHC 32.4 RDW 14.8 Plt Count 113 L MPV 9.3 Neutrophils % 80.5 Lymphocytes % 11.6 D Monocytes % 7.1 Eosinophils % 0.4 Basophils % 0.4 Sodium Potassium Chloride Carbon Dioxide Anion Gap BUN Creatinine Creat Clearance w eGFR POC Glucometer 199 178 Random Glucose Calcium Phosphorus Magnesium Total Bilirubin AST ALT Alkaline Phosphatase Total Protein Albumin 08/07/16 08/07/16 06:00 06:44 WBC RBC Hgb Hct MCV MCHC RDW Plt Count MPV Neutrophils % Lymphocytes % Monocytes % Eosinophils % Basophils % Sodium 141 Potassium 3.9 Chloride 99 Carbon Dioxide 26 Anion Gap 16 BUN 38 H D Creatinine 4.6 H D Creat Clearance w eGFR 9.01 POC Glucometer 230 Random Glucose 247 H Calcium 8.1 L Phosphorus 5.2 H Magnesium 2.1 Total Bilirubin 0.6 AST 15 ALT 15 Alkaline Phosphatase 92 Total Protein 5.4 L Albumin 2.1 L ASSESSMENT AND PLAN: Suspected Pancreatic Cancer Nausea/Vomiting Acute Kidney Injury with Metabolic Acidosis requiring HD - monitor urine output, creatinine - monitor H/H - DVT prophylaxis - PO as tolerated Dr Thomas
[2016-08-07] MEDS: MULTIVITAMINS (DAILY MVI) TABLET (FP) PO SCH (12:50)
[2016-08-07] MEDS: DRONABINOL 5 MG CAPSULE PO SCH (12:50)
[2016-08-07] MEDS: amLODIPine BESYLATE 10 MG TABLET (FP) PO SCH (12:51)
[2016-08-07] MEDS: CLOPIDOGREL BISULFATE 75 MG TABLET (FP) PO SCH (12:52)
[2016-08-07] MEDS: SODIUM CHLORIDE 1,000 ML IV SCH (12:52)
[2016-08-07] MEDS: PANTOPRAZOLE SODIUM 100 ML IVPB SCH (12:52)
--- NOTE | 2016-08-07 13:18 | PN ---
Progress Note (short form) - Note Progress Note: Neurology History of Present Illness This is an 85 yo F with PMH of gastritis (on egd 04/18/12), recently diagnosed pancreatic CA (CT abd here 06/03/16 shows large pancreatic head, distended GB and dilated biliary tree), also had ERCP 07/[address] Whittaker, then transferred to [facility] for biliary drain due to pancreatic CA, who presented with coffee ground emesis. Hebrew speaking and was in the ICU being managed for multiple medical issues and appears to have ongoing uremic encephalopathy. Patient remains calm, alert, awake, cooperative but with flat affect and minimal movements. She has since been moved to floor and getting ongoing treatment for acute tubular necrosis. Completed HD yesterday and access removed. HD as needed, and may be hospice case. Neurologically stable without acute events overnight. Active Medications Amlodipine Besylate (Norvasc -) 10 mg PO DAILY [facility] Last Admin: 08/07/16 12:51 Dose: 10 mg Clopidogrel Bisulfate (Plavix -) 75 mg PO DAILY [facility] Last Admin: 08/07/16 12:52 Dose: 75 mg Dronabinol (Marinol -) 5 mg PO DAILY [facility] Last Admin: 08/07/16 12:50 Dose: 5 mg Pantoprazole Sodium (Protonix 40mg Ivpb (Pre-Docked)) 100 mls @ 200 mls/hr IVPB DAILY [facility] Last Admin: 08/07/16 12:52 Dose: 200 mls/hr Sodium Chloride (Normal Saline -) 1,000 mls @ 42 mls/hr IV ASDIR [facility] Last Admin: 08/07/16 12:52 Dose: 42 mls/hr Insulin Aspart (Novolog Vial Sliding Scale -) 1 vial SQ TIDAC [facility] PRN Reason: Protocol Last Admin: 08/07/16 12:52 Dose: 4 units Multivitamins/Minerals/Vitamin C (Tab-A-Vit -) 1 tab PO DAILY [facility] Last Admin: 08/07/16 12:50 Dose: 1 tab Non-Formulary Medication (Cyanocobalamin (Vitamin B-12) [Vitamin B12]) 2,500 mcg PO DAILY [facility] Last Vital Signs Temp Pulse Resp BP Pulse Ox 97.8 F 90 18 150/54 98 08/07/16 05:38 08/07/16 05:38 08/07/16 05:38 08/07/16 05:38 08/06/16 21:00 GENERAL: lethargic, alert, oriented to self, CACHECTIC, pale, appears dry HEENT: NORMOCEPHALIC, ATRAUMATIC, PERRLA EOMI, MILD SCLERAL ICTERUS, CONJUNCTIVA CLEAR PULM: bibasilar crackles GI: SOFT, DIFFUSELY MILDLY TENDER, NONDISTENDED, NORMOACTIVE BOWEL SOUNDS, MILD HEPATOMEGALY, NO MASS, r POSTERIOR CHOLECYSTOSTOMY TUBE IN PLACE, NONERYTHEMATOUS ENTRY SITE, CLEAN DRESSING, DARK BROWN LIQUID BAG CONTENTS NEURO: CRANIAL NERVES GROSSLY INTACT SKIN: DECREASED TURGOR EXTREMITIES: NO EDEMA, NO CALF TENDERNESS CBCD WBC 4.8 K/mm3 (4.0-10.0) 08/07/16 06:00 RBC 2.88 M/mm3 (3.60-5.2) L 08/07/16 06:00 Hgb 8.3 GM/dL (10.7-15.3) L 08/07/16 06:00 Hct 25.6 % (32.4-45.2) L 08/07/16 06:00 MCV 88.9 fl (80-96) 08/07/16 06:00 MCHC 32.4 g/dl (32.0-36.0) 08/07/16 06:00 RDW 14.8 % (11.6-15.6) 08/07/16 06:00 Plt Count 113 K/MM3 (134-434) L 08/07/16 06:00 MPV 9.3 fl (7.5-11.1) 08/07/16 06:00 CMP Sodium 141 mmol/L (136-145) 08/07/16 06:00 Potassium 3.9 mmol/L (3.5-5.1) 08/07/16 06:00 Chloride 99 mmol/L (98-107) 08/07/16 06:00 Carbon Dioxide 26 mmol/L (21-32) 08/07/16 06:00 Anion Gap 16 (8-16) 08/07/16 06:00 BUN 38 mg/dL (7-18) H D 08/07/16 06:00 Creatinine 4.6 mg/dL (0.55-1.02) H D 08/07/16 06:00 Creat Clearance w eGFR 9.01 (>60) 08/07/16 06:00 Calcium 8.1 mg/dL (8.5-10.1) L 08/07/16 06:00 Total Bilirubin 0.6 mg/dL (0.2-1.0) 08/07/16 06:00 AST 15 U/L (15-37) 08/07/16 06:00 ALT 15 U/L (12-78) 08/07/16 06:00 Alkaline Phosphatase 92 U/L (45-117) 08/07/16 06:00 Total Protein 5.4 g/dl (6.4-8.2) L 08/07/16 06:00 Albumin 2.1 g/dl (3.4-5.0) L 08/07/16 06:00 Plan: 85 yo F with PMH of gastritis (on egd 04/18/12), recently diagnosed pancreatic CA (CT abd here 06/03/16 shows large pancreatic head, distended GB and dilated biliary tree), also had ERCP 07/[address] Whittaker, then transferred to [facility] for biliary drain due to pancreatic CA, who presented with coffee ground emesis. Hebrew speaking and was in the ICU being managed for multiple medical issues and appears to have ongoing uremic encephalopathy. Patient remains calm, alert, awake, cooperative but with flat affect and minimal movements. Mental status intact and undergoing Continued managment of uremia Nephrology following, hemodialysis as per them, Cr improved Pancreatic cancer mgmt ongoing Family considering hospice Neurologically stable
--- NOTE | 2016-08-07 15:50 | PN ---
Progress Note (short form) - Note Progress Note: Renal follow up for RANJANA Pt seen and examined at the bedside awake and alert s/p dialysis yesterday femoral Hd catheter removed yesterday following dialysis family considering hospice care Vital Signs Temperature 97.5 F L 08/07/16 15:27 Pulse Rate 95 H 08/07/16 15:27 Respiratory Rate 18 08/07/16 15:27 Blood Pressure 171/67 08/07/16 15:27 O2 Sat by Pulse Oximetry (%) 98 08/06/16 21:00 Intake & Output 08/04/16 08/05/16 08/06/16 08/07/16 23:59 23:59 23:59 23:59 Intake Total 250 340 680 0 Output Total 450 555 475 20 Balance -200 -215 205 -20 Weight 106 lb 6 oz 106 lb 107 lb 3.2 oz 103 lb Gen: NAD CVS: RRR, No M/R Lungs: CTA, no rales or wheeze Abd: soft NT/ND Ext: No edema, clubbing or cyanosis CBC, BMP 08/07/16 06:00 08/07/16 06:00 Laboratory Tests 08/07/16 06:00 Calcium 8.1 L Phosphorus 5.2 H Albumin 2.1 L Current Medications Amlodipine Besylate (Norvasc -) 10 mg PO DAILY [facility] Last Admin: 08/07/16 12:51 Dose: 10 mg Clopidogrel Bisulfate (Plavix -) 75 mg PO DAILY [facility] Last Admin: 08/07/16 12:52 Dose: 75 mg Dronabinol (Marinol -) 5 mg PO DAILY [facility] Last Admin: 08/07/16 12:50 Dose: 5 mg Pantoprazole Sodium (Protonix 40mg Ivpb (Pre-Docked)) 100 mls @ 200 mls/hr IVPB DAILY [facility] Last Admin: 08/07/16 12:52 Dose: 200 mls/hr Sodium Chloride (Normal Saline -) 1,000 mls @ 42 mls/hr IV ASDIR [facility] Last Admin: 08/07/16 12:52 Dose: 42 mls/hr Insulin Aspart (Novolog Vial Sliding Scale -) 1 vial SQ TIDAC [facility] PRN Reason: Protocol Last Admin: 08/07/16 12:52 Dose: 4 units Multivitamins/Minerals/Vitamin C (Tab-A-Vit -) 1 tab PO DAILY [facility] Last Admin: 08/07/16 12:50 Dose: 1 tab Non-Formulary Medication (Cyanocobalamin (Vitamin B-12) [Vitamin B12]) 2,500 mcg PO DAILY [facility] A/P 85 year old woman with PMhx of Pancreatic Mass/lesion suspicious for Ca, Billiary obstruction s/p IR drain placement, Hypertension, Hyperlipidemia, DM who presented with N/V with coffee ground emesis and found to have BUN/Cr of 91/ 10. #Acute on Chronic Renal Failure with acidosis and suspected uremia in setting of AMS RANJANA secondary to ATN s/p dialysis yesterday, femoral catheter removed following dialysis no indication for dialysis today family deciding on goals of care, possible hospice placement will access in AM, if planned for hospice would not resume HD #Pancreatic Mass with billiary obstruction Oncology following Jean Tejeda DO
--- NOTE | 2016-08-07 20:37 | PN ---
Teaching Attending Note Name of Resident: Lawanda Baird ATTENDING PHYSICIAN STATEMENT I saw and evaluated the patient. I reviewed the resident's note and discussed the case with the resident. I agree with the resident's findings and plan as documented. SUBJECTIVE: Patient feels so hungry post marinol started to eat. Feeling better in general. OBJECTIVE: Vital Signs Temperature 97.7 F 08/07/16 18:30 Pulse Rate 95 H 08/07/16 18:30 Respiratory Rate 18 08/07/16 18:30 Blood Pressure 175/70 08/07/16 18:30 O2 Sat by Pulse Oximetry (%) 98 08/06/16 21:00 CBCD WBC 4.8 K/mm3 (4.0-10.0) 08/07/16 06:00 RBC 2.88 M/mm3 (3.60-5.2) L 08/07/16 06:00 Hgb 8.3 GM/dL (10.7-15.3) L 08/07/16 06:00 Hct 25.6 % (32.4-45.2) L 08/07/16 06:00 MCV 88.9 fl (80-96) 08/07/16 06:00 MCHC 32.4 g/dl (32.0-36.0) 08/07/16 06:00 RDW 14.8 % (11.6-15.6) 08/07/16 06:00 Plt Count 113 K/MM3 (134-434) L 08/07/16 06:00 MPV 9.3 fl (7.5-11.1) 08/07/16 06:00 CMP Sodium 141 mmol/L (136-145) 08/07/16 06:00 Potassium 3.9 mmol/L (3.5-5.1) 08/07/16 06:00 Chloride 99 mmol/L (98-107) 08/07/16 06:00 Carbon Dioxide 26 mmol/L (21-32) 08/07/16 06:00 Anion Gap 16 (8-16) 08/07/16 06:00 BUN 38 mg/dL (7-18) H D 08/07/16 06:00 Creatinine 4.6 mg/dL (0.55-1.02) H D 08/07/16 06:00 Creat Clearance w eGFR 9.01 (>60) 08/07/16 06:00 Random Glucose 247 mg/dL (74-106) H 08/07/16 06:00 Calcium 8.1 mg/dL (8.5-10.1) L 08/07/16 06:00 Total Bilirubin 0.6 mg/dL (0.2-1.0) 08/07/16 06:00 AST 15 U/L (15-37) 08/07/16 06:00 ALT 15 U/L (12-78) 08/07/16 06:00 Alkaline Phosphatase 92 U/L (45-117) 08/07/16 06:00 Total Protein 5.4 g/dl (6.4-8.2) L 08/07/16 06:00 Albumin 2.1 g/dl (3.4-5.0) L 08/07/16 06:00 Current Medications Generic Name Dose Route Start Last Admin Trade Name Freq PRN Reason Stop Dose Admin Amlodipine Besylate 10 mg 08/06/16 10:00 08/07/16 12:51 Norvasc - PO 10 mg DAILY [facility] Administration Clopidogrel Bisulfate 75 mg 08/06/16 10:00 08/07/16 12:52 Plavix - PO 75 mg DAILY [facility] Administration Dronabinol 5 mg 08/06/16 13:30 08/07/16 12:50 Marinol - PO 5 mg DAILY [facility] Administration Pantoprazole Sodium 100 mls @ 200 mls/hr 08/04/16 10:00 08/07/16 12:52 Protonix 40mg Ivpb (Pre-Docked) IVPB 200 mls/hr DAILY [facility] Administration Sodium Chloride 1,000 mls @ 42 mls/hr 08/07/16 10:30 08/07/16 12:52 Normal Saline - IV 42 mls/hr ASDIR [facility] Administration Insulin Aspart 1 vial 08/04/16 07:00 08/07/16 18:41 Novolog Vial Sliding Scale - SQ 6 units TIDAC [facility] Administration Protocol Multivitamins/Minerals/Vitamin C 1 tab 08/06/16 10:00 08/07/16 12:50 Tab-A-Vit - PO 1 tab DAILY [facility] Administration Non-Formulary Medication 2,500 mcg 08/06/16 10:00 Cyanocobalamin (Vitamin B-12) [Vitamin B12] PO DAILY [facility] Home Medications Medication Instructions Recorded Amlodipine Besylate [Norvasc -] 10 mg PO DAILY 06/03/16 Calcium Carbonate/Vitamin D3 1 each PO DAILY 06/03/16 [Calcium 600 + Vit D Tablet] Clopidogrel Bisulfate [Clopidogrel] 75 mg PO DAILY 06/03/16 Furosemide [Lasix] 20 mg PO DAILY 06/03/16 Losartan Potassium [Cozaar] 100 mg PO DAILY 06/03/16 Simvastatin [Zocor -] 20 mg PO HS 06/03/16 Insulin (Levemir) [Levemir Flexpen 20 units SQ DAILY MDD 20 U night 06/21/16 -] Insulin (Novolog) [Novolog Flexpen 0 units SQ ACHS MDD 7 U lunch time 06/21/16 -] Cyanocobalamin (Vitamin B-12) 2,500 mcg PO DAILY 08/01/16 [Vitamin B12] Multivitamins [Tab-A-Vit -] 1 tab PO DAILY 08/01/16 ASSESSMENT AND PLAN: 85 yr old Mongolian speaking woman with biliary drain, enlarged pancreatic head, HTN, HLD, DM, osteoporosis, presented to the ED with coffee ground emesis for two days. Transferred to ICU for AMS, RANJANA and metabolic acidosis requiring emergent dialysis. #Acute renal failure with Metabolic Acidosis requiring HD s/p dialysis x2 s/p removal of Dr.Shaji meek on the case , due to ATN. # Acute UTI-Group D strep/Enterococcus, since patient is asymptomatic, no further antibiotic # Coffee ground emesis x 4 , on Protonix drip ;Gi consult ; clear liquid diet. # Pancreatic cancer- Failed ERCP with a stent and attemped an IR drainage as per patient's son-in-law ;Sun [phone]. pig tail catheter in place draining yellow brownish fluid- 250mls over 24 hrs. Patient's discharge summary from [facility] attached in the file. #DM on sliding scale with coverage # DVT Px : On Scd's, heparin not given due to GI bleed. GI px: On Protonix drip # Code Status: Full Code Daughter's info; Ms. CHAVEZ- [phone]. Please call Ms. Lay Mookie [phone] who speaks Finnish. Family consented to discuss about patients medical condition with Ms. Lay. Health Care Proxy. Mr. Anatoly Hannon (Eldest son- [phone]). Waiting for [place]
[2016-08-07] MEDS ORDERED: amLODIPine BESYLATE 5 MG TABLET (FP) PO ONE (21:16)
--- NOTE | 2016-08-07 21:52 | HOSP ---
Subjective - Review of Symptoms Events since last encounter: Pt slid and fell off bed. She was attempting to get up to go to the bathroom and slid between opening of railing and fell to the floor and hit her head lightly on railing of bed. Pt is Romansh speaking and translation was done via Romansh speaking nurse. Pt denies any N/V, visual changes, headache, light- headedness, any pain anywhere else in body and feel ok at this time. PE: Head: NC/AT C/V: S1S2, RRR Resp: CTA b/l Abd: soft, non-tender Extremities: Full ROM, 5/5 strength B/l UE and LE, no pain with log rolling of leg. No pain with palpation at legs and arms. A/P: Fall protocol [address] w/o contrast ordered. Pt also on plavix. If change in mental status, visual changes, nausea, vomiting occur, may need repeat head CT. Pt stable at this time. -HEAD CT: No evidence of acute intracranial pathology Physical Examination Vital Signs: Vital Signs Temperature 97.7 F 08/07/16 18:30 Pulse Rate 95 H 08/07/16 18:30 Respiratory Rate 18 08/07/16 18:30 Blood Pressure 175/70 08/07/16 18:30 O2 Sat by Pulse Oximetry (%) 98 08/06/16 21:00 Labs: CBC, BMP 08/07/16 06:00 08/07/16 06:00 Visit type - Emergency Visit Emergency Visit: Yes ED Registration Date: 08/02/16 Care time: The patient presented to the Emergency Department on the above date and was hospitalized for further evaluation of their emergent condition. - New Patient This patient is new to me today: No - Critical Care Critical Care patient: No
[2016-08-08] MEDS: INSULIN SLIDING SCALE (NOVOLOG) 1 VIAL SQ SCH ×3 (06:25→18:39)
[2016-08-08 07:14] LABS: MCH 28.5 pg (25.7-33.7); MCHC 32.1 g/dl (32.0-36.0); MEAN CELL VOLUME 88.8 fl (80-96); MEAN PLT VOLUME 9.1 fl (7.5-11.1); PLATELET COUNT 131 K/MM3 (134-434); WHITE BLOOD COUNT 7.3 K/mm3 (4.0-10.0)
[2016-08-08] MEDS ORDERED: ACETAMINOPHEN 325 MG TABLET (FP) ONE (07:35)
[2016-08-08 07:47] LABS: ALBUMIN 2.3 g/dl (3.4-5.0); CALCIUM 8.1 mg/dL (8.5-10.1)
[2016-08-08 07:51] LABS: BILIRUBIN,TOTAL 0.7 mg/dL (0.2-1.0); COCKROFT - GAULT 5.44; CREATININE 5.3 mg/dL (0.55-1.02); TOT PROT 5.6 g/dl (6.4-8.2)
[2016-08-08] MEDS: DRONABINOL 5 MG CAPSULE PO SCH (07:55)
[2016-08-08] MEDS: amLODIPine BESYLATE 10 MG TABLET (FP) PO SCH (07:55)
[2016-08-08] MEDS: MULTIVITAMINS (DAILY MVI) TABLET (FP) PO SCH (07:55)
[2016-08-08] MEDS: CLOPIDOGREL BISULFATE 75 MG TABLET (FP) PO SCH (07:55)
[2016-08-08] MEDS: PANTOPRAZOLE SODIUM 100 ML IVPB SCH (07:55)
[2016-08-08] MEDS ORDERED: DOCUSATE SODIUM 100 MG CAPSULE (FP) PO PRN (08:06)
[2016-08-08] MEDS ORDERED: POLYETHYLENE GLYCOL 3350 119 GM BTL PO ONE (08:06)
--- NOTE | 2016-08-08 12:38 | PN ---
Teaching Attending Note Name of Resident: Lawanda Baird ATTENDING PHYSICIAN STATEMENT I saw and evaluated the patient. I reviewed the resident's note and discussed the case with the resident. I agree with the resident's findings and plan as documented. SUBJECTIVE: appears agitated , yelling however refusing to use translation phone OBJECTIVE: GENERAL: Elderly female, sitting in bed eating, more alert, and oriented to time , place and person, in no acute distress. FEMORAL LINE REMOVED ON 08/06/16 at bed side. HEAD: Normal with no signs of trauma. EYES: EOM intact, pallor + but no icterus. ENT: Ears normal, dry mucous membranes. NECK: Trachea midline, full range of motion, supple. LUNGS: Breath sounds equal, clear to auscultation bilaterally, no wheezes, no crackles, no accessory muscle use. HEART: Regular rate and rhythm, S1, S2 with systolic murmur. ABDOMEN: Pig tail catheter in place, Soft, nontender, nondistended, normoactive bowel sounds, no guarding, no rebound, no hepatosplenomegaly, no masses. EXTREMITIES: 2+ pulses, warm, well-perfused, no edema. NEUROLOGICAL: Normal speech. Gait not observed. PSYCH: Normal mood, normal affect. SKIN: Warm, dry, normal turgor, no rashes or lesions noted ASSESSMENT AND PLAN: CBC, BMP 08/08/16 06:00 08/08/16 06:00 Patient is a 85 year old female with PMH of Hypertension, Hyperlipidemia, Diabetes Mellitus, pancreatic ca, osteoporosis presents to the ER with coffee ground emesis x4 over two days. Also found to have RANJANA on CKD. # Acute on Chronic kidney injury s/p temporary dialysis Likely due to Acute Tubular Necrosis ( contrast induced, NSAID use ) Dialysis done 08/06/16, to be done as needed upon d/c . Femoral line removed on 08/06/16. Strict I's and O's # Possible Upper GI bleed- c/o 4 episodes of coffee ground emesis Stared on clear liquid diabetic diet On Protonix Failed ERCP with a stent and attemped an IR drainage as per patients son-in- law son-in law Luigi [phone] # Altered mental status-improved Could be due to uremia vs metastasis from pancreatic cancer # Pancreatic cancer- Family members do not want any aggressive treatment, they decided to take her to hospice. Palliative care. # Diabetes Mellitus- with hypoglycemia HbA1c 7.9 BGM Q2H Insulin sliding scale as directed only # Prophylaxis For DVT: On Scd's, heparin not given due to GI bleed For GI: On Protonix
--- NOTE | 2016-08-08 13:18 | PN ---
Progress Note (short form) - Note Progress Note: Renal follow up for RANJANA Pt seen and examined at the bedside awake and alert s/p fall last night, CT head negative for ICH family had discussion with palliative services and plan if for hospice care and no further dialysis Vital Signs Temperature 97.2 F L 08/08/16 05:25 Pulse Rate 99 H 08/08/16 05:25 Respiratory Rate 18 08/08/16 05:25 Blood Pressure 156/76 08/08/16 05:25 O2 Sat by Pulse Oximetry (%) 97 08/07/16 21:00 Intake & Output 08/05/16 08/06/16 08/07/16 08/08/16 23:59 23:59 23:59 23:59 Intake Total 340 680 100 400 Output Total 555 475 40 40 Balance -215 205 60 360 Weight 106 lb 107 lb 3.2 oz 103 lb Gen: NAD CVS: RRR, No M/R Lungs: CTA, no rales or wheeze Abd: soft NT/ND Ext: No edema, clubbing or cyanosis CBC, BMP 08/08/16 06:00 08/08/16 06:00 Current Medications Amlodipine Besylate (Norvasc -) 10 mg PO DAILY [facility] Last Admin: 08/08/16 07:55 Dose: 10 mg Clopidogrel Bisulfate (Plavix -) 75 mg PO DAILY [facility] Last Admin: 08/08/16 07:55 Dose: 75 mg Docusate Sodium (Colace -) 100 mg PO BID PRN PRN Reason: CONSTIPATION Dronabinol (Marinol -) 5 mg PO DAILY [facility] Last Admin: 08/08/16 07:55 Dose: 5 mg Pantoprazole Sodium (Protonix 40mg Ivpb (Pre-Docked)) 100 mls @ 200 mls/hr IVPB DAILY [facility] Last Admin: 08/08/16 07:55 Dose: 200 mls/hr Sodium Chloride (Normal Saline -) 1,000 mls @ 42 mls/hr IV ASDIR [facility] Last Admin: 08/07/16 12:52 Dose: 42 mls/hr Insulin Aspart (Novolog Vial Sliding Scale -) 1 vial SQ TIDAC [facility] PRN Reason: Protocol Last Admin: 08/08/16 06:25 Dose: 6 units Multivitamins/Minerals/Vitamin C (Tab-A-Vit -) 1 tab PO DAILY [facility] Last Admin: 08/08/16 07:55 Dose: 1 tab Senna (Senna -) 2 tab PO HS PRN PRN Reason: CONSTIPATION A/P 85 year old woman with PMhx of Pancreatic Mass/lesion suspicious for Ca, Billiary obstruction s/p IR drain placement, Hypertension, Hyperlipidemia, DM who presented with N/V with coffee ground emesis and found to have BUN/Cr of 91/ 10. #Acute on Chronic Renal Failure with acidosis and suspected uremia in setting of AMS that required acute hemodialysis Family decision is to no longer pursue dialysis and arrange for hospice care would avoid any further blood draws supportive care D/c IVF as pt is eating well. #Pancreatic Mass with billiary obstruction Oncology following no diagnostic or therapeutic interventions as per family wishes Jean Tejeda DO
--- NOTE | 2016-08-08 13:24 | PN ---
Progress Note (short form) - Note Progress Note: Neurology History of Present Illness This is an 85 yo F with PMH of gastritis (on egd 04/18/12), recently diagnosed pancreatic CA (CT abd here 06/03/16 shows large pancreatic head, distended GB and dilated biliary tree), also had ERCP 07/[address] Whittaker, then transferred to [facility] for biliary drain due to pancreatic CA, who presented with coffee ground emesis. Arabic speaking and was in the ICU being managed for multiple medical issues and appears to have ongoing uremic encephalopathy. Patient remains calm, alert, awake, cooperative but with flat affect and minimal movements. She has since been moved to floor and getting ongoing treatment for acute tubular necrosis. Completed HD yesterday and access removed. HD as needed, and may be hospice case. Neurologically stable without acute events overnight. Spoke to family in detail. Active Medications Amlodipine Besylate (Norvasc -) [address] [facility] Last Admin: 08/08/16 07:55 Dose: 10 mg Clopidogrel Bisulfate (Plavix -) 75 mg PO DAILY [facility] Last Admin: 08/08/16 07:55 Dose: 75 mg Docusate Sodium (Colace -) 100 mg PO BID PRN PRN Reason: CONSTIPATION Dronabinol (Marinol -) [address] [facility] Last Admin: 08/08/16 07:55 Dose: 5 mg Pantoprazole Sodium (Protonix 40mg Ivpb (Pre-Docked)) 100 mls @ 200 mls/hr IVPB DAILY [facility] Last Admin: 08/08/16 07:55 Dose: 200 mls/hr Insulin Aspart (Novolog Vial Sliding Scale -) 1 vial SQ TIDAC [facility] PRN Reason: Protocol Last Admin: 08/08/16 06:25 Dose: 6 units Multivitamins/Minerals/Vitamin C (Tab-A-Vit -) 1 tab PO DAILY [facility] Last Admin: 08/08/16 07:55 Dose: 1 tab Senna (Senna -) 2 tab PO HS PRN PRN Reason: CONSTIPATION Vital Signs Temperature 97.2 F L 08/08/16 05:25 Pulse Rate 99 H 08/08/16 05:25 Respiratory Rate 18 08/08/16 05:25 Blood Pressure 156/76 08/08/16 05:25 O2 Sat by Pulse Oximetry (%) 97 08/07/16 21:00 GENERAL: lethargic, alert, oriented to self, CACHECTIC, pale, appears dry HEENT: NORMOCEPHALIC, ATRAUMATIC, PERRLA EOMI, MILD SCLERAL ICTERUS, CONJUNCTIVA CLEAR PULM: bibasilar crackles GI: SOFT, DIFFUSELY MILDLY TENDER, NONDISTENDED, NORMOACTIVE BOWEL SOUNDS, MILD HEPATOMEGALY, NO MASS, r POSTERIOR CHOLECYSTOSTOMY TUBE IN PLACE, NONERYTHEMATOUS ENTRY SITE, CLEAN DRESSING, DARK BROWN LIQUID BAG CONTENTS NEURO: CRANIAL NERVES GROSSLY INTACT SKIN: DECREASED TURGOR EXTREMITIES: NO EDEMA, NO CALF TENDERNESS CBCD WBC 7.3 K/mm3 (4.0-10.0) D 08/08/16 06:00 RBC 3.04 M/mm3 (3.60-5.2) L 08/08/16 06:00 Hgb 8.7 GM/dL (10.7-15.3) L 08/08/16 06:00 Hct 27.0 % (32.4-45.2) L 08/08/16 06:00 MCV 88.8 fl (80-96) 08/08/16 06:00 MCHC 32.1 g/dl (32.0-36.0) 08/08/16 06:00 RDW 15.0 % (11.6-15.6) 08/08/16 06:00 Plt Count 131 K/MM3 (134-434) L 08/08/16 06:00 MPV 9.1 fl (7.5-11.1) 08/08/16 06:00 CMP Sodium 142 mmol/L (136-145) 08/08/16 06:00 Potassium 3.8 mmol/L (3.5-5.1) 08/08/16 06:00 Chloride 101 mmol/L (98-107) 08/08/16 06:00 Carbon Dioxide 27 mmol/L (21-32) 08/08/16 06:00 Anion Gap 14 (8-16) 08/08/16 06:00 BUN 41 mg/dL (7-18) H 08/08/16 06:00 Creatinine 5.3 mg/dL (0.55-1.02) H 08/08/16 06:00 Creat Clearance w eGFR 7.65 (>60) 08/08/16 06:00 Calcium 8.1 mg/dL (8.5-10.1) L 08/08/16 06:00 Total Bilirubin 0.7 mg/dL (0.2-1.0) 08/08/16 06:00 AST 19 U/L (15-37) D 08/08/16 06:00 ALT 16 U/L (12-78) 08/08/16 06:00 Alkaline Phosphatase 99 U/L (45-117) 08/08/16 06:00 Total Protein 5.6 g/dl (6.4-8.2) L 08/08/16 06:00 Albumin 2.3 g/dl (3.4-5.0) L 08/08/16 06:00 Plan: 85 yo F with PMH of gastritis (on egd 04/18/12), recently diagnosed pancreatic CA (CT abd here 06/03/16 shows large pancreatic head, distended GB and dilated biliary tree), also had ERCP 07/[address] Whittaker, then transferred to [facility] for biliary drain due to pancreatic CA, who presented with coffee ground emesis. Arabic speaking and was in the ICU being managed for multiple medical issues and appears to have ongoing uremic encephalopathy. Patient remains calm, alert, awake, cooperative but with flat affect and minimal movements. Mental status intact and undergoing Continued managment of uremia Nephrology following, hemodialysis as per them, Cr improved Pancreatic cancer mgmt ongoing Family considering hospice Neurologically stable Spoke with grand-daughter in detail
--- NOTE | 2016-08-08 16:14 | PN ---
Physical Exam: SUBJECTIVE: Patient seen and examined at bed side this morning. She was comfortably sitting on a chair eating. Family member were present at bed side. Patient insisted to go home. No other complaints. Overnight, patient fell and hit her head. Head CT was negative for any acute pathology. OBJECTIVE: Vital Signs Period Temp Pulse Resp BP Sys/Luo Pulse Ox Last 24 Hr 97.2 F-98.7 F 89-100 18-18 117-175/54-81 97 GENERAL: Elderly female, sitting in a chair eating, more alert, and oriented to time, place and person, in no acute distress. FEMORAL LINE REMOVED ON 08/06/16 at bed side. HEAD: Normal with no signs of trauma. EYES: EOM intact, pallor + but no icterus. ENT: Ears normal, dry mucous membranes. NECK: Trachea midline, full range of motion, supple. LUNGS: Breath sounds equal, clear to auscultation bilaterally, no wheezes, no crackles, no accessory muscle use. HEART: Regular rate and rhythm, S1, S2 with systolic murmur. ABDOMEN: Pig tail catheter in place, Soft, nontender, nondistended, normoactive bowel sounds, no guarding, no rebound, no hepatosplenomegaly, no masses. EXTREMITIES: 2+ pulses, warm, well-perfused, no edema. NEUROLOGICAL: Normal speech. Gait not observed. PSYCH: Normal mood, normal affect. SKIN: Warm, dry, normal turgor, no rashes or lesions noted Laboratory Results - last 24 hr 08/07/16 08/08/16 08/08/16 16:16 06:00 06:00 WBC 7.3 D RBC 3.04 L Hgb 8.7 L Hct 27.0 L MCV 88.8 MCHC 32.1 RDW 15.0 Plt Count 131 L MPV 9.1 Sodium 142 Potassium 3.8 Chloride 101 Carbon Dioxide 27 Anion Gap 14 BUN 41 H Creatinine 5.3 H Creat Clearance w eGFR 7.65 POC Glucometer 254 Random Glucose 303 H* D Calcium 8.1 L Total Bilirubin 0.7 AST 19 D ALT 16 Alkaline Phosphatase 99 Total Protein 5.6 L Albumin 2.3 L 08/08/16 08/08/16 06:24 11:44 WBC RBC Hgb Hct MCV MCHC RDW Plt Count MPV Sodium Potassium Chloride Carbon Dioxide Anion Gap BUN Creatinine Creat Clearance w eGFR POC Glucometer 287 182 Random Glucose Calcium Total Bilirubin AST ALT Alkaline Phosphatase Total Protein Albumin Active Medications Generic Name Dose Route Start Last Admin Trade Name Freq PRN Reason Stop Dose Admin Amlodipine Besylate 10 mg 08/06/16 10:00 08/08/16 07:55 Norvasc - PO 10 mg DAILY [facility] Administration Clopidogrel Bisulfate 75 mg 08/06/16 10:00 08/08/16 07:55 Plavix - PO 75 mg DAILY [facility] Administration Docusate Sodium 100 mg 08/08/16 08:06 Colace - PO BID PRN CONSTIPATION Dronabinol 5 mg 08/06/16 13:30 08/08/16 07:55 Marinol - PO 5 mg DAILY [facility] Administration Pantoprazole Sodium 100 mls @ 200 mls/hr 08/04/16 10:00 08/08/16 07:55 Protonix 40mg Ivpb (Pre-Docked) IVPB 200 mls/hr DAILY [facility] Administration Insulin Aspart 1 vial 08/04/16 07:00 08/08/16 06:25 Novolog Vial Sliding Scale - SQ 6 units TIDAC [facility] Administration Protocol Multivitamins/Minerals/Vitamin C 1 tab 08/06/16 10:00 08/08/16 07:55 Tab-A-Vit - PO 1 tab DAILY [facility] Administration Senna 2 tab 08/08/16 22:00 Senna - PO HS PRN CONSTIPATION ASSESSMENT/PLAN: Patient is a 85 year old female with PMH of Hypertension, Hyperlipidemia, Diabetes Mellitus, pancreatic ca, osteoporosis presents to the ER with coffee ground emesis x4 over two days. Also found to have RANJANA on CKD. # Acute on Chronic kidney injury Likely due to Acute Tubular Necrosis ( contrast induced, NSAID use for pain given the h/o pancreatic cancer, use of ARB, contrast? ) Temporary dialysis was done (last done on 08/06/16), no plans to dialyze any further, patients family decided not to treat the medical condition aggressively. Creatinine 5.3, baseline 1.2 # Possible Upper GI bleed- Improved Stared on clear liquid diabetic diet On Protonix Failed ERCP with a stent and attemped an IR drainage as per patients son-in- law son-in law [facility] [phone] Patient's discharge summary from [facility] attached in the file. # Altered mental status-Improving Could be due to uremia vs metastasis from pancreatic cancer # Pancreatic cancer- Family members do not want any aggressive treatment, they decided to take her to [facility]. Palliative care. # Diabetes Mellitus- with hypoglycemia HbA1c 7.9 BGM Q2H Insulin sliding scale as directed only # FEN Not on IV fluids Electrolytes to be repeated Clear liquid diabetic diet # Prophylaxis For DVT: On Scd's, heparin not given due to GI bleed For GI: On Protonix # Code Status: Full Code # Dispo: Admitted in Med-surg. Pending NH placement. Had a family meeting today ( with daughter, son, granddaughter, daughter in law) , discussed about the further treatment and management. They decided to take the patient to [facility]. Patients eldest son who is the HCP was present during the family meeting. Illness, Investigation and Plan of care explained to the patient's family members. They verbalized understanding. Daughter's info; Ms. CHAVEZ- [phone]. Please call Ms. Lay Mookie who speaks Arabic. Family consented to discuss about patients medical condition with Ms. Lay. HCP: Nieves Anatoly Hannon (Eldest son- [phone]). Case seen and discussed with . Visit type - Emergency Visit Emergency Visit: Yes ED Registration Date: 08/02/16 Care time: The patient presented to the Emergency Department on the above date and was hospitalized for further evaluation of their emergent condition. - New Patient This patient is new to me today: No - Critical Care Critical Care patient: No - Discharge Referral Referred to [facility] Med P.C.: No
[2016-08-08] MEDS ORDERED: SENNOSIDES 8.6MG TABLET (FP) PO PRN (22:00)
[2016-08-09] MEDS: INSULIN SLIDING SCALE (NOVOLOG) 1 VIAL SQ SCH ×3 (06:41→17:18)
[2016-08-09 07:28] LABS: MCH 28.1 pg (25.7-33.7); MCHC 31.8 g/dl (32.0-36.0); MEAN CELL VOLUME 88.5 fl (80-96); MEAN PLT VOLUME 9.1 fl (7.5-11.1); PLATELET COUNT 153 K/MM3 (134-434); RDW 14.9 % (11.6-15.6); WHITE BLOOD COUNT 12.8 K/mm3 (4.0-10.0)
[2016-08-09 07:51] LABS: ALBUMIN 2.3 g/dl (3.4-5.0); CALCIUM 7.9 mg/dL (8.5-10.1)
[2016-08-09 07:54] LABS: BILIRUBIN,TOTAL 0.9 mg/dL (0.2-1.0); COCKROFT - GAULT 4.624; CREATININE 5.7 mg/dL (0.55-1.02); TOT PROT 6.1 g/dl (6.4-8.2)
--- NOTE | 2016-08-09 09:20 | PN ---
Progress Note (short form) - Note Progress Note: Noted fall yesterday. Now resting in NAD. No further acute events overnight. Intake & Output 08/06/16 08/07/16 08/08/16 08/09/16 23:59 23:59 23:59 23:59 Intake Total 680 100 400 90 Output Total 475 40 40 Balance 205 60 360 90 Weight 107 lb 3.2 oz 103 lb 93 lb Last Vital Signs Temp Pulse Resp BP Pulse Ox 97.1 F L 95 H 16 146/69 95 08/09/16 08:59 08/09/16 08:59 08/09/16 08:59 08/09/16 08:59 08/08/16 21:00 Active Medications Amlodipine Besylate (Norvasc -) 10 mg PO DAILY [facility] Last Admin: 08/08/16 07:55 Dose: 10 mg Clopidogrel Bisulfate (Plavix -) 75 mg PO DAILY [facility] Last Admin: 08/08/16 07:55 Dose: 75 mg Docusate Sodium (Colace -) 100 mg PO BID PRN PRN Reason: CONSTIPATION Dronabinol (Marinol -) 5 mg PO DAILY [facility] Last Admin: 08/08/16 07:55 Dose: 5 mg Pantoprazole Sodium (Protonix 40mg Ivpb (Pre-Docked)) 100 mls @ 200 mls/hr IVPB DAILY [facility] Last Admin: 08/08/16 07:55 Dose: 200 mls/hr Insulin Aspart (Novolog Vial Sliding Scale -) 1 vial SQ TIDAC [facility] PRN Reason: Protocol Last Admin: 08/09/16 06:41 Dose: 4 units Multivitamins/Minerals/Vitamin C (Tab-A-Vit -) 1 tab PO DAILY [facility] Last Admin: 08/08/16 07:55 Dose: 1 tab Senna (Senna -) 2 tab PO HS PRN PRN Reason: CONSTIPATION Gen: NAD at rest Heart: S1S2 Lung: Clear Abd: soft, nontender Ext: no edema Laboratory Results - last 24 hr 08/08/16 08/08/16 08/09/16 11:44 16:06 06:00 WBC 12.8 H D RBC 3.10 L Hgb 8.7 L Hct 27.5 L MCV 88.5 MCHC 31.8 L RDW 14.9 Plt Count 153 MPV 9.1 Sodium Potassium Chloride Carbon Dioxide Anion Gap BUN Creatinine Creat Clearance w eGFR POC Glucometer 182 236 Random Glucose Calcium Total Bilirubin AST ALT Alkaline Phosphatase Total Protein Albumin 08/09/16 08/09/16 06:00 06:39 WBC RBC Hgb Hct MCV MCHC RDW Plt Count MPV Sodium 141 Potassium 3.7 Chloride 102 Carbon Dioxide 23 Anion Gap 16 BUN 49 H Creatinine 5.7 H Creat Clearance w eGFR 7.04 POC Glucometer 239 Random Glucose 240 H D Calcium 7.9 L Total Bilirubin 0.9 D AST 21 ALT 18 Alkaline Phosphatase 111 Total Protein 6.1 L Albumin 2.3 L ASSESSMENT AND PLAN: Pancreatic Cancer Nausea/Vomiting Acute Kidney Injury with Metabolic Acidosis requiring HD - Fall precautions - DVT prophylaxis - PO as tolerated - Being assessed for [place] transfer Dr Thomas
--- NOTE | 2016-08-09 09:35 | PN ---
Physical Exam: SUBJECTIVE: Patient seen and examined at bedside this AM. AAO & in no acute distress. Afebrile overnight with no acute events noted. Tolerating PO diet well thus far. Denies pain. OBJECTIVE: Vital Signs Period Temp Pulse Resp BP Sys/Luo Pulse Ox Last 24 Hr 97.1 F-98.9 F 75-106 16-20 123-146/53-87 95 GENERAL: AAO & resting in bed comfortably. Responds to questions & in no acute distress. HEENT: Atraumatic, EOMI, PERRLA, No lymphadeopathy noted, moist membranes. LUNGS: Breath sounds equal, clear to auscultation bilaterally, no wheezes, no crackles, no accessory muscle use. HEART: Regular rate and rhythm, S1, S2 with systolic murmur. ABDOMEN: Pig tail catheter in place, Soft, nontender, nondistended, normoactive bowel sounds, no guarding, no rebound, no hepatosplenomegaly, no masses. EXTREMITIES: 2+ pulses, warm, well-perfused, no edema. NEUROLOGICAL: Normal speech. Gait not observed. PSYCH: Normal mood, normal affect. SKIN: Warm, dry, normal turgor, no rashes or lesions noted Laboratory Results - last 24 hr 08/08/16 08/08/16 08/09/16 11:44 16:06 06:00 WBC 12.8 H D RBC 3.10 L Hgb 8.7 L Hct 27.5 L MCV 88.5 MCHC 31.8 L RDW 14.9 Plt Count 153 MPV 9.1 Sodium Potassium Chloride Carbon Dioxide Anion Gap BUN Creatinine Creat Clearance w eGFR POC Glucometer 182 236 Random Glucose Calcium Total Bilirubin AST ALT Alkaline Phosphatase Total Protein Albumin 08/09/16 08/09/16 06:00 06:39 WBC RBC Hgb Hct MCV MCHC RDW Plt Count MPV Sodium 141 Potassium 3.7 Chloride 102 Carbon Dioxide 23 Anion Gap 16 BUN 49 H Creatinine 5.7 H Creat Clearance w eGFR 7.04 POC Glucometer 239 Random Glucose 240 H D Calcium 7.9 L Total Bilirubin 0.9 D AST 21 ALT 18 Alkaline Phosphatase 111 Total Protein 6.1 L Albumin 2.3 L Active Medications Generic Name Dose Route Start Last Admin Trade Name Freq PRN Reason Stop Dose Admin Amlodipine Besylate 10 mg 08/06/16 10:00 08/08/16 07:55 Norvasc - PO 10 mg DAILY [facility] Administration Clopidogrel Bisulfate 75 mg 08/06/16 10:00 08/08/16 07:55 Plavix - PO 75 mg DAILY [facility] Administration Docusate Sodium 100 mg 08/08/16 08:06 Colace - PO BID PRN CONSTIPATION Dronabinol 5 mg 08/06/16 13:30 08/08/16 07:55 Marinol - PO 5 mg DAILY [facility] Administration Pantoprazole Sodium 100 mls @ 200 mls/hr 08/04/16 10:00 08/08/16 07:55 Protonix 40mg Ivpb (Pre-Docked) IVPB 200 mls/hr DAILY [facility] Administration Insulin Aspart 1 vial 08/04/16 07:00 08/09/16 06:41 Novolog Vial Sliding Scale - SQ 4 units TIDAC [facility] Administration Protocol Multivitamins/Minerals/Vitamin C 1 tab 08/06/16 10:00 08/08/16 07:55 Tab-A-Vit - PO 1 tab DAILY [facility] Administration Senna 2 tab 08/08/16 22:00 Senna - PO HS PRN CONSTIPATION ASSESSMENT/PLAN: 85 year old female with PMH of HTN/HLD/DM, Pancreatic Cancer, osteoporosis who presented to the ER with coffee ground emesis x4 over two days. Also found to have RANJANA on CKD. #Upper GI bleed, improved -progressively upgraded diet, currently tolerating soft diet well -IV Protonix daily -Colace, Senna regimen -Dronabinol for appetite -As per patient's son-in-law, patient failed ERCP with a stent and attempted an IR drainage ([facility] [id number]) #Acute on Chronic Kidney Failure -etiology is likely Acute Tubular Necrosis secondary to Contrast use VS NSAID use VS ARB -Baselien Creatinine ~1.2, currently 5.7 -patient had been receiving dialysis earlier in this admission (first time in life) but, as per family's wishes, there are no plans to dialyze further -family wants conservative medical management #Pancreatic Cancer -no aggressive management, as above -plans to transfer to [facility] when pending placement -palliative care consulted #DM -Insulin sliding scale coverage -FS BGM #HTN/HLD -continue Norvasc, Plavix Prophylaxis/FEN -No AC due to GI bleed, on SCD's -IV PPI, as above -No IVF indicated -monitor electrolytes (but no dialysis going forward) -Soft Diabetic Diet Dispo: Social work on case, pending transfer to [facility] Daughter's info; Ms. CHAVEZ- [phone]. Please call Ms. Rosanne Damico who speaks Azeri. Family consented to discuss about patients medical condition with Ms. Lay. HCP: Mr. Anatoly Hannon (Eldest son- [phone]). Visit type - Emergency Visit Emergency Visit: Yes ED Registration Date: 08/02/16 Care time: The patient presented to the Emergency Department on the above date and was hospitalized for further evaluation of their emergent condition. - New Patient This patient is new to me today: Yes Date on this admission: 08/09/16 - Critical Care Critical Care patient: No
[2016-08-09] MEDS: CLOPIDOGREL BISULFATE 75 MG TABLET (FP) PO SCH ×3 (11:14→11:19)
[2016-08-09] MEDS: PANTOPRAZOLE SODIUM 100 ML IVPB SCH ×3 (11:15→11:19)
[2016-08-09] MEDS: DRONABINOL 5 MG CAPSULE PO SCH ×2 (11:15→11:18)
[2016-08-09] MEDS: MULTIVITAMINS (DAILY MVI) TABLET (FP) PO SCH ×3 (11:15→11:19)
[2016-08-09] MEDS: amLODIPine BESYLATE 10 MG TABLET (FP) PO SCH ×2 (11:16→11:19)
[2016-08-09] MEDS: PATIENT'S OWN MEDICATION (NON-FORMULARY) (Cyanocobalamin (Vitamin B-12) [Vitamin B12] 2,50 PO SCH (12:29)
[2016-08-09] MEDS: SODIUM CHLORIDE 1,000 ML IV SCH (12:29)
--- NOTE | 2016-08-09 14:47 | PN ---
Progress Note (short form) - Note Progress Note: Neurology History of Present Illness This is an 85 yo F with PMH of gastritis (on egd 04/18/12), recently diagnosed pancreatic CA (CT abd here 06/03/16 shows large pancreatic head, distended GB and dilated biliary tree), also had ERCP 07/[address] Whittaker, then transferred to [facility] for biliary drain due to pancreatic CA, who presented with coffee ground emesis. Greek speaking and was in the ICU being managed for multiple medical issues and appears to have ongoing uremic encephalopathy. Patient remains calm, alert, awake, cooperative but with flat affect and minimal movements. She has since been moved to floor and getting ongoing treatment for acute tubular necrosis. Neurologically stable without acute events overnight. Upper GI bleed improved, getting ongoing care for renal failure. Active Medications Amlodipine Besylate (Norvasc -) 10 mg PO DAILY [facility] Last Admin: 08/09/16 11:19 Dose: 10 mg Clopidogrel Bisulfate (Plavix -) 75 mg PO DAILY [facility] Last Admin: 08/09/16 11:19 Dose: 75 mg Docusate Sodium (Colace -) 100 mg PO BID PRN PRN Reason: CONSTIPATION Dronabinol (Marinol -) 5 mg PO DAILY [facility] Last Admin: 08/09/16 11:18 Dose: Not Given Pantoprazole Sodium (Protonix 40mg Ivpb (Pre-Docked)) 100 mls @ 200 mls/hr IVPB DAILY [facility] Last Admin: 08/09/16 11:19 Dose: 200 mls/hr Insulin Aspart (Novolog Vial Sliding Scale -) 1 vial SQ TIDAC [facility] PRN Reason: Protocol Last Admin: 08/09/16 12:25 Dose: 2 units Multivitamins/Minerals/Vitamin C (Tab-A-Vit -) 1 tab PO DAILY [facility] Last Admin: 08/09/16 11:19 Dose: 1 tab Senna (Senna -) 2 tab PO HS PRN PRN Reason: CONSTIPATION Vital Signs Temperature 98.2 F 08/09/16 14:34 Pulse Rate 88 08/09/16 14:34 Respiratory Rate 18 08/09/16 14:34 Blood Pressure 130/58 08/09/16 14:34 O2 Sat by Pulse Oximetry (%) 95 08/08/16 21:00 GENERAL: lethargic, alert, oriented to self, CACHECTIC, pale, appears dry HEENT: NORMOCEPHALIC, ATRAUMATIC, PERRLA EOMI, MILD SCLERAL ICTERUS, CONJUNCTIVA CLEAR PULM: bibasilar crackles GI: SOFT, DIFFUSELY MILDLY TENDER, NONDISTENDED, NORMOACTIVE BOWEL SOUNDS, MILD HEPATOMEGALY, NO MASS, r POSTERIOR CHOLECYSTOSTOMY TUBE IN PLACE, NONERYTHEMATOUS ENTRY SITE, CLEAN DRESSING, DARK BROWN LIQUID BAG CONTENTS NEURO: CRANIAL NERVES GROSSLY INTACT SKIN: DECREASED TURGOR EXTREMITIES: NO EDEMA, NO CALF TENDERNESS CBCD WBC 12.8 K/mm3 (4.0-10.0) H D 08/09/16 06:00 RBC 3.10 M/mm3 (3.60-5.2) L 08/09/16 06:00 Hgb 8.7 GM/dL (10.7-15.3) L 08/09/16 06:00 Hct 27.5 % (32.4-45.2) L 08/09/16 06:00 MCV 88.5 fl (80-96) 08/09/16 06:00 MCHC 31.8 g/dl (32.0-36.0) L 08/09/16 06:00 RDW 14.9 % (11.6-15.6) 08/09/16 06:00 Plt Count 153 K/MM3 (134-434) 08/09/16 06:00 MPV 9.1 fl (7.5-11.1) 08/09/16 06:00 CMP Sodium 141 mmol/L (136-145) 08/09/16 06:00 Potassium 3.7 mmol/L (3.5-5.1) 08/09/16 06:00 Chloride 102 mmol/L (98-107) 08/09/16 06:00 Carbon Dioxide 23 mmol/L (21-32) 08/09/16 06:00 Anion Gap 16 (8-16) 08/09/16 06:00 BUN 49 mg/dL (7-18) H 08/09/16 06:00 Creatinine 5.7 mg/dL (0.55-1.02) H 08/09/16 06:00 Creat Clearance w eGFR 7.04 (>60) 08/09/16 06:00 Calcium 7.9 mg/dL (8.5-10.1) L 08/09/16 06:00 Total Bilirubin 0.9 mg/dL (0.2-1.0) D 08/09/16 06:00 AST 21 U/L (15-37) 08/09/16 06:00 ALT 18 U/L (12-78) 08/09/16 06:00 Alkaline Phosphatase 111 U/L (45-117) 08/09/16 06:00 Total Protein 6.1 g/dl (6.4-8.2) L 08/09/16 06:00 Albumin 2.3 g/dl (3.4-5.0) L 08/09/16 06:00 Plan: 85 yo F with PMH of gastritis (on egd 04/18/12), recently diagnosed pancreatic CA (CT abd here 06/03/16 shows large pancreatic head, distended GB and dilated biliary tree), also had ERCP 07/[address] Whittaker, then transferred to [facility] for biliary drain due to pancreatic CA, who presented with coffee ground emesis. Greek speaking and was in the ICU being managed for multiple medical issues and appears to have ongoing uremic encephalopathy. Patient remains calm, alert, awake, cooperative but with flat affect and minimal movements. Mental status intact and undergoing Continued managment of uremia Nephrology following, hemodialysis as per them, Cr improved Pancreatic cancer mgmt ongoing Upper GI bleed improved Family considering hospice Neurologically stable
--- NOTE | 2016-08-09 14:49 | PN ---
Teaching Attending Note Name of Resident: Kali Gaspar ATTENDING PHYSICIAN STATEMENT I saw and evaluated the patient. I reviewed the resident's note and discussed the case with the resident. I agree with the resident's findings and plan as documented. SUBJECTIVE:no acute events. no new complaints, resting comfortably OBJECTIVE: Vital Signs Temperature 98.2 F 08/09/16 14:34 Pulse Rate 88 08/09/16 14:34 Respiratory Rate 18 08/09/16 14:34 Blood Pressure 130/58 08/09/16 14:34 O2 Sat by Pulse Oximetry (%) 95 08/08/16 21:00 GENERAL: Elderly female, sitting in bed eating, more alert, and oriented to time , place and person, in no acute distress. FEMORAL LINE REMOVED ON 08/06/16 at bed side. HEAD: Normal with no signs of trauma. EYES: EOM intact, pallor + but no icterus. ENT: Ears normal, dry mucous membranes. NECK: Trachea midline, full range of motion, supple. LUNGS: Breath sounds equal, clear to auscultation bilaterally, no wheezes, no crackles, no accessory muscle use. HEART: Regular rate and rhythm, S1, S2 with systolic murmur. ABDOMEN: Pig tail catheter in place, Soft, nontender, nondistended, normoactive bowel sounds, no guarding, no rebound, no hepatosplenomegaly, no masses. EXTREMITIES: 2+ pulses, warm, well-perfused, no edema. NEUROLOGICAL: Normal speech. Gait not observed. PSYCH: Normal mood, normal affect. SKIN: Warm, dry, normal turgor, no rashes or lesions noted CBC, BMP 08/09/16 06:00 08/09/16 06:00 ASSESSMENT AND PLAN: Patient is a 85 year old female with PMH of Hypertension, Hyperlipidemia, Diabetes Mellitus, pancreatic ca, osteoporosis presents to the ER with coffee ground emesis x4 over two days. Also found to have RANJANA on CKD. # Acute on Chronic kidney injury s/p temporary dialysis Likely due to Acute Tubular Necrosis ( contrast induced, NSAID use ) Dialysis to be done as needed upon d/c . Femoral line removed on 08/06/16. Strict I's and O's # Possible Upper GI bleed- Stared on clear liquid diabetic diet On Protonix Failed ERCP with a stent and attemped an IR drainage as per patients son-in- law son-in law Hawng [phone] # Altered mental status-improved Could be due to uremia vs metastasis from pancreatic cancer # Pancreatic cancer- Family members do not want any aggressive treatment, they decided to take her to hospice. Palliative care. # Diabetes Mellitus- HbA1c 7.9 BGM Q2H Insulin sliding scale as directed only Disposition : transfer o [facility] when evaluated
--- NOTE | 2016-08-09 15:10 | PN ---
Progress Note (short form) - Note Progress Note: Renal follow up for RANJANA Pt seen and examined at the bedside awake and alert no overnight events Vital Signs Temperature 98.2 F 08/09/16 14:34 Pulse Rate 88 08/09/16 14:34 Respiratory Rate 18 08/09/16 14:34 Blood Pressure 130/58 08/09/16 14:34 O2 Sat by Pulse Oximetry (%) 95 08/08/16 21:00 Intake & Output 08/06/16 08/07/16 08/08/16 08/09/16 23:59 23:59 23:59 23:59 Intake Total 680 100 400 90 Output Total 475 40 40 Balance 205 60 360 90 Weight 107 lb 3.2 oz 103 lb 93 lb Gen: NAD CVS: RRR, No M/R Lungs: CTA, no rales or wheeze Abd: soft NT/ND Ext: No edema, clubbing or cyanosis CBC, BMP 08/09/16 06:00 08/09/16 06:00 Laboratory Tests 08/09/16 06:00 Calcium 7.9 L Albumin 2.3 L Current Medications Amlodipine Besylate (Norvasc -) 10 mg PO DAILY [facility] Last Admin: 08/09/16 11:19 Dose: 10 mg Clopidogrel Bisulfate (Plavix -) 75 mg PO DAILY [facility] Last Admin: 08/09/16 11:19 Dose: 75 mg Docusate Sodium (Colace -) 100 mg PO BID PRN PRN Reason: CONSTIPATION Dronabinol (Marinol -) 5 mg PO DAILY [facility] Last Admin: 08/09/16 11:18 Dose: Not Given Pantoprazole Sodium (Protonix 40mg Ivpb (Pre-Docked)) 100 mls @ 200 mls/hr IVPB DAILY [facility] Last Admin: 08/09/16 11:19 Dose: 200 mls/hr Insulin Aspart (Novolog Vial Sliding Scale -) 1 vial SQ TIDAC [facility] PRN Reason: Protocol Last Admin: 08/09/16 12:25 Dose: 2 units Multivitamins/Minerals/Vitamin C (Tab-A-Vit -) 1 tab PO DAILY [facility] Last Admin: 08/09/16 11:19 Dose: 1 tab Senna (Senna -) 2 tab PO HS PRN PRN Reason: CONSTIPATION A/P 85 year old woman with PMhx of Pancreatic Mass/lesion suspicious for Ca, Billiary obstruction s/p IR drain placement, Hypertension, Hyperlipidemia, DM who presented with N/V with coffee ground emesis and found to have BUN/Cr of 91/ 10. #Acute on Chronic Renal Failure with acidosis and suspected uremia in setting of AMS that required acute hemodialysis BUN/Cr up trending off of dialysis no further dialysis is planned as pt is for hospice care would avoid any further blood draws as pt is for comfort measures only at this time would avoid CODY/ARB/NSAIDs #Pancreatic Mass with billiary obstruction Oncology following no diagnostic or therapeutic interventions as per family wishes awaiting hospice placement Jean Tejeda DO
[2016-08-10] MEDS: INSULIN SLIDING SCALE (NOVOLOG) 1 VIAL SQ SCH ×3 (06:22→16:45)
[2016-08-10 06:59] LABS: MCH 28.1 pg (25.7-33.7); MCHC 31.7 g/dl (32.0-36.0); MEAN CELL VOLUME 88.8 fl (80-96); MEAN PLT VOLUME 9.9 fl (7.5-11.1); PLATELET COUNT 137 K/MM3 (134-434); WHITE BLOOD COUNT 6.8 K/mm3 (4.0-10.0)
[2016-08-10 07:25] LABS: ANION GAP 17 (8-16); CALCIUM 7.4 mg/dL (8.5-10.1); CO2 22 mmol/L (21-32); CREATININE 6.2 mg/dL (0.55-1.02); GLUCOSE,RANDOM 234 mg/dL (74-106)
--- NOTE | 2016-08-10 09:54 | PN ---
Physical Exam: SUBJECTIVE: Patient seen and examined at bed side this morning. No acute events overnight. OBJECTIVE: Vital Signs Period Temp Pulse Resp BP Sys/Luo Pulse Ox Last 24 Hr 97.7 F-98.2 F 85-95 16-18 130-154/50-80 95 GENERAL: Elderly female, lying in bed, alert, and oriented to time, place and person, in no acute distress. FEMORAL LINE REMOVED ON 08/06/16 at bed side. HEAD: Normal with no signs of trauma. EYES: EOM intact, pallor + but no icterus. ENT: Ears normal, dry mucous membranes. NECK: Trachea midline, full range of motion, supple. LUNGS: Breath sounds equal, clear to auscultation bilaterally, no wheezes, no crackles, no accessory muscle use. HEART: Regular rate and rhythm, S1, S2 with systolic murmur. ABDOMEN: Pig tail catheter in place, Soft, nontender, nondistended, normoactive bowel sounds, no guarding, no rebound, no hepatosplenomegaly, no masses. EXTREMITIES: 2+ pulses, warm, well-perfused, no edema. NEUROLOGICAL: Normal speech. Gait not observed. PSYCH: Normal mood, normal affect. SKIN: Warm, dry, normal turgor, no rashes or lesions noted Laboratory Results - last 24 hr 08/09/16 08/09/16 08/09/16 11:59 16:39 22:13 WBC RBC Hgb Hct MCV MCHC RDW Plt Count MPV Sodium Potassium Chloride Carbon Dioxide Anion Gap BUN Creatinine POC Glucometer 173 219 140 Random Glucose Calcium 08/10/16 08/10/16 05:35 05:35 WBC 6.8 D RBC 2.70 L Hgb 7.6 L D Hct 24.0 L MCV 88.8 MCHC 31.7 L RDW 15.0 Plt Count 137 MPV 9.9 Sodium 142 Potassium 4.0 Chloride 103 Carbon Dioxide 22 Anion Gap 17 H BUN 56 H Creatinine 6.2 H POC Glucometer Random Glucose 234 H Calcium 7.4 L Active Medications Generic Name Dose Route Start Last Admin Trade Name Freq PRN Reason Stop Dose Admin Amlodipine Besylate 10 mg 08/06/16 10:00 08/09/16 11:19 Norvasc - PO 10 mg DAILY [facility] Administration Clopidogrel Bisulfate 75 mg 08/06/16 10:00 08/09/16 11:19 Plavix - PO 75 mg DAILY [facility] Administration Docusate Sodium 100 mg 08/08/16 08:06 Colace - PO BID PRN CONSTIPATION Dronabinol 5 mg 08/06/16 13:30 08/09/16 11:18 Marinol - PO Not Given DAILY [facility] Pantoprazole Sodium 100 mls @ 200 mls/hr 08/04/16 10:00 08/09/16 11:19 Protonix 40mg Ivpb (Pre-Docked) IVPB 200 mls/hr DAILY [facility] Administration Insulin Aspart 1 vial 08/04/16 07:00 08/10/16 06:22 Novolog Vial Sliding Scale - SQ 4 units TIDAC [facility] Administration Protocol Multivitamins/Minerals/Vitamin C 1 tab 08/06/16 10:00 08/09/16 11:19 Tab-A-Vit - PO 1 tab DAILY [facility] Administration Senna 2 tab 08/08/16 22:00 Senna - PO HS PRN CONSTIPATION ASSESSMENT/PLAN: Patient is a 85 year old female with PMH of Hypertension, Hyperlipidemia, Diabetes Mellitus, pancreatic ca, osteoporosis presents to the ER with coffee ground emesis x4 over two days. Also found to have RANJANA on CKD. # Acute on Chronic kidney injury-worsening Likely due to Acute Tubular Necrosis ( contrast induced, NSAID use for pain given the h/o pancreatic cancer, use of ARB, contrast? ) Temporary dialysis was done (last done on 08/06/16), no plans to dialyze any further, patients family decided not to treat the medical condition aggressively. # Possible Upper GI bleed- Improved Stared on clear liquid diabetic diet On Protonix Failed ERCP with a stent and attemped an IR drainage as per patients son-in- law son-in law [facility] [phone] Patient's discharge summary from [facility] attached in the file. # Altered mental status-Improving Could be due to uremia vs metastasis from pancreatic cancer # Pancreatic cancer- Family members do not want any aggressive treatment, they decided to take her to [facility]. Palliative care. # Diabetes Mellitus- with hypoglycemia HbA1c 7.9 BGM Q2H Insulin sliding scale as directed only # FEN Not on IV fluids Electrolytes to be repeated Clear liquid diabetic diet # Prophylaxis For DVT: On Scd's, heparin not given due to GI bleed For GI: On Protonix # Code Status: Full Code # Dispo: Admitted in Med-surg. Pending NH placement. Had a family meeting on 08/08/2016 ( with daughter, son, granddaughter, daughter in law), discussed about the further treatment and management. They decided to take the patient to [facility], awaiting placement. Patients eldest son who is the HCP was present during the family meeting. Illness, Investigation and Plan of care explained to the patient's family members. They verbalized understanding. Daughter's info; Ms. CHAVEZ- [phone]. Please call Ms. Rosanne Damico who speaks Omani. Family consented to discuss about patients medical condition with Ms. Lay. HCP: Mr. Anatoly Hannon (Eldest son- [phone]). Case discussed with . Visit type - Emergency Visit Emergency Visit: Yes ED Registration Date: 08/02/16 Care time: The patient presented to the Emergency Department on the above date and was hospitalized for further evaluation of their emergent condition. - New Patient This patient is new to me today: No - Critical Care Critical Care patient: No
[2016-08-10] MEDS: MULTIVITAMINS (DAILY MVI) TABLET (FP) PO SCH (12:10)
[2016-08-10] MEDS: DRONABINOL 5 MG CAPSULE PO SCH (12:11)
[2016-08-10] MEDS: PANTOPRAZOLE SODIUM 100 ML IVPB SCH (12:11)
[2016-08-10] MEDS: CLOPIDOGREL BISULFATE 75 MG TABLET (FP) PO SCH (12:11)
[2016-08-10] MEDS: amLODIPine BESYLATE 10 MG TABLET (FP) PO SCH (12:11)
--- NOTE | 2016-08-10 12:11 | PN ---
Progress Note (short form) - Note Progress Note: Renal follow up for RANJANA Pt seen and examined at the bedside sitting in chair awake and alert, comfortable daughter at the bedside as well Vital Signs Temperature 97.7 F 08/10/16 09:22 Pulse Rate 95 H 08/10/16 09:22 Respiratory Rate 16 08/10/16 09:22 Blood Pressure 154/80 08/10/16 09:22 O2 Sat by Pulse Oximetry (%) 95 08/09/16 21:00 Intake & Output 08/07/16 08/08/16 08/09/16 08/10/16 23:59 23:59 23:59 23:59 Intake Total 100 400 240 Output Total 40 40 1 Balance 60 360 239 Weight 103 lb 93 lb 102 lb 6.4 oz Gen: NAD CVS: RRR, No M/R Lungs: CTA, no rales or wheeze Abd: soft NT/ND Ext: No edema, clubbing or cyanosis CBC, BMP 08/10/16 05:35 08/10/16 05:35 Laboratory Tests 08/10/16 05:35 Calcium 7.4 L Current Medications Amlodipine Besylate (Norvasc -) 10 mg PO DAILY [facility] Last Admin: 08/09/16 11:19 Dose: 10 mg Clopidogrel Bisulfate (Plavix -) 75 mg PO DAILY [facility] Last Admin: 08/09/16 11:19 Dose: 75 mg Docusate Sodium (Colace -) 100 mg PO BID PRN PRN Reason: CONSTIPATION Dronabinol (Marinol -) 5 mg PO DAILY [facility] Last Admin: 08/09/16 11:18 Dose: Not Given Pantoprazole Sodium (Protonix 40mg Ivpb (Pre-Docked)) 100 mls @ 200 mls/hr IVPB DAILY [facility] Last Admin: 08/09/16 11:19 Dose: 200 mls/hr Insulin Aspart (Novolog Vial Sliding Scale -) 1 vial SQ TIDAC [facility] PRN Reason: Protocol Last Admin: 08/10/16 11:59 Dose: 6 units Multivitamins/Minerals/Vitamin C (Tab-A-Vit -) 1 tab PO DAILY [facility] Last Admin: 08/09/16 11:19 Dose: 1 tab Senna (Senna -) 2 tab PO HS PRN PRN Reason: CONSTIPATION A/P 85 year old woman with PMhx of Pancreatic Mass/lesion suspicious for Ca, Billiary obstruction s/p IR drain placement, Hypertension, Hyperlipidemia, DM who presented with N/V with coffee ground emesis and found to have BUN/Cr of 91/ 10. #Acute on Chronic Renal Failure with acidosis and suspected uremia in setting of AMS that required acute hemodialysis labs indicatte that pt without recovery of renal function yet no further dialysis planned as pt is for hospice care upon discharge renal diet supportive care no signs of uremia at this time #Pancreatic Mass with billiary obstruction Oncology following no diagnostic or therapeutic interventions as per family wishes awaiting hospice placement Jean Tejeda DO
--- NOTE | 2016-08-10 15:59 | PN ---
Progress Note (short form) - Note Progress Note: Neurology History of Present Illness This is an 85 yo F with PMH of gastritis (on egd 04/18/12), recently diagnosed pancreatic CA (CT abd here 06/03/16 shows large pancreatic head, distended GB and dilated biliary tree), also had ERCP 07/[address] Whittaker, then transferred to [facility] for biliary drain due to pancreatic CA, who presented with coffee ground emesis. Thai speaking and was in the ICU being managed for multiple medical issues and appears to have ongoing uremic encephalopathy. Patient remains calm, alert, awake, cooperative but with flat affect and minimal movements. She has since been moved to floor and getting ongoing treatment for acute tubular necrosis. Neurologically stable without acute events overnight. Upper GI bleed improved, getting ongoing care for renal failure. Patient for transfer to [place] for hospice care. Active Medications Amlodipine Besylate (Norvasc -) 10 mg PO DAILY [facility] Last Admin: 08/10/16 12:11 Dose: 10 mg Clopidogrel Bisulfate (Plavix -) 75 mg PO DAILY [facility] Last Admin: 08/10/16 12:11 Dose: 75 mg Docusate Sodium (Colace -) 100 mg PO BID PRN PRN Reason: CONSTIPATION Dronabinol (Marinol -) 5 mg PO DAILY [facility] Last Admin: 08/10/16 12:11 Dose: 5 mg Pantoprazole Sodium (Protonix 40mg Ivpb (Pre-Docked)) 100 mls @ 200 mls/hr IVPB DAILY [facility] Last Admin: 08/10/16 12:11 Dose: 200 mls/hr Insulin Aspart (Novolog Vial Sliding Scale -) 1 vial SQ TIDAC [facility] PRN Reason: Protocol Last Admin: 08/10/16 11:59 Dose: 6 units Multivitamins/Minerals/Vitamin C (Tab-A-Vit -) 1 tab PO DAILY [facility] Last Admin: 08/10/16 12:10 Dose: 1 tab Senna (Senna -) 2 tab PO HS PRN PRN Reason: CONSTIPATION Vital Signs Temperature 98.2 F 08/10/16 15:12 Pulse Rate 92 H 08/10/16 15:12 Respiratory Rate 18 08/10/16 15:12 Blood Pressure 149/76 08/10/16 15:12 O2 Sat by Pulse Oximetry (%) 98 08/10/16 09:00 GENERAL: lethargic, alert, oriented to self, CACHECTIC, pale, appears dry HEENT: NORMOCEPHALIC, ATRAUMATIC, PERRLA EOMI, MILD SCLERAL ICTERUS, CONJUNCTIVA CLEAR PULM: bibasilar crackles GI: SOFT, DIFFUSELY MILDLY TENDER, NONDISTENDED, NORMOACTIVE BOWEL SOUNDS, MILD HEPATOMEGALY, NO MASS, r POSTERIOR CHOLECYSTOSTOMY TUBE IN PLACE, NONERYTHEMATOUS ENTRY SITE, CLEAN DRESSING, DARK BROWN LIQUID BAG CONTENTS NEURO: CRANIAL NERVES GROSSLY INTACT SKIN: DECREASED TURGOR EXTREMITIES: NO EDEMA, NO CALF TENDERNESS CBCD WBC 6.8 K/mm3 (4.0-10.0) D 08/10/16 05:35 RBC 2.70 M/mm3 (3.60-5.2) L 08/10/16 05:35 Hgb 7.6 GM/dL (10.7-15.3) L D 08/10/16 05:35 Hct 24.0 % (32.4-45.2) L 08/10/16 05:35 MCV 88.8 fl (80-96) 08/10/16 05:35 MCHC 31.7 g/dl (32.0-36.0) L 08/10/16 05:35 RDW 15.0 % (11.6-15.6) 08/10/16 05:35 Plt Count 137 K/MM3 (134-434) 08/10/16 05:35 MPV 9.9 fl (7.5-11.1) 08/10/16 05:35 CMP Sodium 142 mmol/L (136-145) 08/10/16 05:35 Potassium 4.0 mmol/L (3.5-5.1) 08/10/16 05:35 Chloride 103 mmol/L (98-107) 08/10/16 05:35 Carbon Dioxide 22 mmol/L (21-32) 08/10/16 05:35 Anion Gap 17 (8-16) H 08/10/16 05:35 BUN 56 mg/dL (7-18) H 08/10/16 05:35 Creatinine 6.2 mg/dL (0.55-1.02) H 08/10/16 05:35 Creat Clearance w eGFR 7.04 (>60) 08/09/16 06:00 Calcium 7.4 mg/dL (8.5-10.1) L 08/10/16 05:35 Total Bilirubin 0.9 mg/dL (0.2-1.0) D 08/09/16 06:00 AST 21 U/L (15-37) 08/09/16 06:00 ALT 18 U/L (12-78) 08/09/16 06:00 Alkaline Phosphatase 111 U/L (45-117) 08/09/16 06:00 Total Protein 6.1 g/dl (6.4-8.2) L 08/09/16 06:00 Albumin 2.3 g/dl (3.4-5.0) L 08/09/16 06:00 Plan: 85 yo F with PMH of gastritis (on egd 04/18/12), recently diagnosed pancreatic CA (CT abd here 06/03/16 shows large pancreatic head, distended GB and dilated biliary tree), also had ERCP 07/[address] Whittaker, then transferred to [facility] for biliary drain due to pancreatic CA, who presented with coffee ground emesis. Thai speaking and was in the ICU being managed for multiple medical issues and appears to have ongoing uremic encephalopathy. Patient remains calm, alert, awake, cooperative but with flat affect and minimal movements. Mental status intact and undergoing Continued managment of uremia Nephrology following, hemodialysis as per them, Cr improved Pancreatic cancer mgmt ongoing Upper GI bleed improved Patient to go to [place] for hospice care
--- NOTE | 2016-08-10 16:17 | PN ---
Teaching Attending Note Name of Resident: Lawanda Baird ATTENDING PHYSICIAN STATEMENT I saw and evaluated the patient. I reviewed the resident's note and discussed the case with the resident. I agree with the resident's findings and plan as documented. SUBJECTIVE: no acute event OBJECTIVE: Vital Signs Temperature 98.2 F 08/10/16 15:12 Pulse Rate 92 H 08/10/16 15:12 Respiratory Rate 18 08/10/16 15:12 Blood Pressure 149/76 08/10/16 15:12 O2 Sat by Pulse Oximetry (%) 98 08/10/16 09:00 CBC, BMP 08/10/16 05:35 HEENT dry mucosa, poor dentition CVS S1 S2 heard Lungs CTA Neuro lethargic 08/10/16 05:35 ASSESSMENT AND PLAN: Patient is a 85 year old female with PMH of Hypertension, Hyperlipidemia, Diabetes Mellitus, pancreatic ca, osteoporosis presents to the ER with coffee ground emesis x4 over two days. Also found to have RANJANA on CKD. # Acute on Chronic kidney injury s/p temporary dialysis Likely due to Acute Tubular Necrosis ( contrast induced, NSAID use ) Dialysis to be done as needed upon d/c . Femoral line removed on 08/06/16. Strict I's and O's # Possible Upper GI bleed- drop in hemoglobin Stared on clear liquid diabetic diet On Protonix conservative management # Altered mental status-metabolic encephalopathy Could be due to uremia vs metastasis from pancreatic cancer # Pancreatic cancer- Family members do not want any aggressive treatment, they decided to take her to hospice. Palliative care. # Diabetes Mellitus- HbA1c 7.9 BGM Q2H Insulin sliding scale as directed only Disposition : transfer o [place] when bed is available
[2016-08-11] MEDS: INSULIN SLIDING SCALE (NOVOLOG) 1 VIAL SQ SCH ×2 (06:23→12:17)
--- NOTE | 2016-08-11 08:41 | PN ---
Physical Exam: SUBJECTIVE: Patient seen and examined OBJECTIVE: Vital Signs Period Temp Pulse Resp BP Sys/Luo Pulse Ox Last 24 Hr 97.7 F-98.8 F 87-95 16-20 135-154/52-80 94-98 GENERAL: The patient is awake, alert, and fully oriented, in no acute distress. HEAD: Normal with no signs of trauma. EYES: PERRL, extraocular movements intact, sclera anicteric, conjunctiva clear. No ptosis. ENT: Ears normal, nares patent, oropharynx clear without exudates, moist mucous membranes. NECK: Trachea midline, full range of motion, supple. LUNGS: Breath sounds equal, clear to auscultation bilaterally, no wheezes, no crackles, no accessory muscle use. HEART: Regular rate and rhythm, S1, S2 without murmur, rub or gallop. ABDOMEN: Soft, nontender, nondistended, normoactive bowel sounds, no guarding, no rebound, no hepatosplenomegaly, no masses. EXTREMITIES: 2+ pulses, warm, well-perfused, no edema. NEUROLOGICAL: Cranial nerves II through XII grossly intact. Normal speech, gait not observed. PSYCH: Normal mood, normal affect. SKIN: Warm, dry, normal turgor, no rashes or lesions noted Laboratory Results - last 24 hr 08/10/16 08/10/16 08/10/16 06:21 11:52 11:54 POC Glucometer 250 268 277 08/10/16 08/10/16 08/11/16 16:57 23:07 06:22 POC Glucometer 170 226 280 Active Medications Generic Name Dose Route Start Last Admin Trade Name Freq PRN Reason Stop Dose Admin Amlodipine Besylate 10 mg 08/06/16 10:00 08/10/16 12:11 Norvasc - PO 10 mg DAILY [facility] Administration Clopidogrel Bisulfate 75 mg 08/06/16 10:00 08/10/16 12:11 Plavix - PO 75 mg DAILY [facility] Administration Docusate Sodium 100 mg 08/08/16 08:06 Colace - PO BID PRN CONSTIPATION Dronabinol 5 mg 08/06/16 13:30 08/10/16 12:11 Marinol - PO 5 mg DAILY [facility] Administration Pantoprazole Sodium 100 mls @ 200 mls/hr 08/04/16 10:00 08/10/16 12:11 Protonix 40mg Ivpb (Pre-Docked) IVPB 200 mls/hr DAILY [facility] Administration Insulin Aspart 1 vial 08/04/16 07:00 08/11/16 06:23 Novolog Vial Sliding Scale - SQ 6 units TIDAC [facility] Administration Protocol Multivitamins/Minerals/Vitamin C 1 tab 08/06/16 10:00 08/10/16 12:10 Tab-A-Vit - PO 1 tab DAILY [facility] Administration Senna 2 tab 08/08/16 22:00 Senna - PO HS PRN CONSTIPATION ASSESSMENT/PLAN:
--- NOTE | 2016-08-11 08:42 | DS ---
Physical Exam: SUBJECTIVE: Patient seen and examined. laying comfortably in bed, denies any pain. OBJECTIVE: Vital Signs Period Temp Pulse Resp BP Sys/Luo Pulse Ox Last 24 Hr 97.7 F-98.8 F 87-95 16-20 135-154/52-80 94-98 PHYSICAL EXAM GENERAL: The patient is awake,in no acute distress. HEAD: Normal with no signs of trauma. EYES: PERRL, extraocular movements intact, sclera anicteric, conjunctiva clear. ENT: oropharynx clear without exudates, moist mucous membranes. LUNGS: Breath sounds equal, clear to auscultation bilaterally, no wheezes, no crackles, no accessory muscle use. HEART: Regular rate and rhythm, S1, S2 with systolic murmur ABDOMEN: Soft, nontender, nondistended, normoactive bowel sounds, no guarding, biliary drain placed in ruq draining dark brown fluid EXTREMITIES: 2+ DP and radial pulses, warm, well-perfused, no edema. LABS Laboratory Results - last 24 hr 08/10/16 08/10/16 08/10/16 06:21 11:52 11:54 POC Glucometer 250 268 277 08/10/16 08/10/16 08/11/16 16:57 23:07 06:22 POC Glucometer 170 226 280 Laboratory Tests 08/01/16 08/01/16 08/02/16 17:15 17:44 05:35 WBC 13.3 H D Hgb 9.0 L Hct 28.8 L MCHC 31.3 L ABG pH ABG pCO2 at Pt Temp ABG pO2 at Pt Temp ABG HCO3 BUN 97 H D 91 H Creatinine 9.8 H* D 10.0 H* Random Glucose 21 L* D 08/02/16 08/03/16 08/03/16 10:15 05:00 05:00 WBC 10.9 H Hgb 8.7 L Hct 26.8 L MCHC ABG pH 7.18 L* D ABG pCO2 at Pt Temp 30.2 L D ABG pO2 at Pt Temp 106.0 H D ABG HCO3 10.9 L* BUN 55 H D Creatinine 6.2 H D Random Glucose 08/08/16 08/09/16 08/10/16 06:00 06:00 05:35 WBC Hgb Hct MCHC ABG pH ABG pCO2 at Pt Temp ABG pO2 at Pt Temp ABG HCO3 BUN 41 H 49 H 56 H Creatinine 5.3 H 5.7 H 6.2 H Random Glucose HOSPITAL COURSE: Date of Admission:08/02/16 Date of Discharge: 08/11/16 85 yr old woman with DM, HTN, renal insufficiency, recently found to have pancreatic mass with biliary drain admitted for coffee ground emesis and AMS found to have anion gap metabolic acidosis and RANJANA. She had acute on chronic renal failure with acidosis and suspected uremia in setting of AMS that required acute hemodialysis. Patient's renal function and mental status improved with dialysis. Patient was seen at [facility] several months ago for work-up of obstructing pancreatic mass. 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 Family at that time had decided against further work-up and aggressive treatments for presumed pancreatic/GI malignancy. Patient's family met with palliative care team and decided for comfort care measures with referral to [place] for hospice. Her mental status and renal function has been stable. Patient's mental status has improved, she is tolerating po with soup when given slowly, has been afebrile and hemodynamically stable. Patient was transferred to [place] when bed became available. Family notified and they consented for transfer. Minutes to complete discharge: 46 Discharge Summary Reason For Visit: ACUTE RENAL FAILURE UPPER GI BLEED AMS Current Active Problems Acute renal failure (Acute) Asymptomatic bacteriuria (Acute) Coffee ground emesis (Acute) Enlarged pancreas (Acute) History of biliary stent insertion (Acute) Hypoglycemia (Acute) Pancreatic cancer (Acute) Condition: Guarded - Instructions Diet, Activity, Other Instructions: You are being transferred to [place]. Disposition: DISCH TO HOSPICE-MED FACILITY - Home Medications Comprehensive Discharge Medication List: Ambulatory Orders RX: Amlodipine Besylate [Norvasc -] 10 mg PO DAILY 06/03/16 RX: Calcium Carbonate/Vitamin D3 [Calcium 600 + Vit D Tablet] 1 each PO DAILY RX: Clopidogrel Bisulfate [Clopidogrel] 75 mg PO DAILY 06/03/16 RX: Furosemide [Lasix] 20 mg PO DAILY 06/03/16 RX: Losartan Potassium [Cozaar] 100 mg PO DAILY 06/03/16 RX: Simvastatin [Zocor -] 20 mg PO HS 06/03/16 RX: Insulin (Levemir) [Levemir Flexpen -] 20 units SQ DAILY [facility] 20 U night 06/21 RX: Insulin (Novolog) [Novolog Flexpen -] 0 units SQ ACHS MDD 7 U lunch time Cyanocobalamin (Vitamin B-12) [Vitamin B12] 2,500 mcg PO DAILY 08/01/16 Multivitamins [Tab-A-Vit -] 1 tab PO DAILY 08/01/16 This patient is new to me today: Yes Date on this admission: 08/11/16 Emergency Visit: No Critical Care patient: No - Discharge Referral Referred to [facility] No
[2016-08-11 09:28] VITALS: BP 132/58; PULSE 100; TEMP 98
--- NOTE | 2016-08-11 10:02 | PN ---
Progress Note (short form) - Note Progress Note: Renal follow up for RANJANA Pt seen and examined at the bedside awake and alert daughter at the bedside for transfer to [facility] today Vital Signs Temperature 98.0 F 08/11/16 09:15 Pulse Rate 100 H 08/11/16 09:15 Respiratory Rate 18 08/11/16 09:15 Blood Pressure 132/58 08/11/16 09:15 O2 Sat by Pulse Oximetry (%) 94 L 08/10/16 21:00 Intake & Output 08/08/16 08/09/16 08/10/16 08/11/16 23:59 23:59 23:59 23:59 Intake Total 400 240 10 Output Total 40 1 Balance 360 239 10 Weight 93 lb 102 lb 6.4 oz 100 lb 12.8 oz Gen: NAD CVS: RRR, No M/R Lungs: CTA, no rales or wheeze Abd: soft NT/ND Ext: No edema, clubbing or cyanosis CBC, BMP 08/10/16 05:35 08/10/16 05:35 Laboratory Tests 08/10/16 05:35 Calcium 7.4 L Current Medications Amlodipine Besylate (Norvasc -) 10 mg PO DAILY [facility] Last Admin: 08/10/16 12:11 Dose: 10 mg Clopidogrel Bisulfate (Plavix -) 75 mg PO DAILY [facility] Last Admin: 08/10/16 12:11 Dose: 75 mg Docusate Sodium (Colace -) 100 mg PO BID PRN PRN Reason: CONSTIPATION Dronabinol (Marinol -) 5 mg PO DAILY [facility] Last Admin: 08/10/16 12:11 Dose: 5 mg Pantoprazole Sodium (Protonix 40mg Ivpb (Pre-Docked)) 100 mls @ 200 mls/hr IVPB DAILY [facility] Last Admin: 08/10/16 12:11 Dose: 200 mls/hr Insulin Aspart (Novolog Vial Sliding Scale -) 1 vial SQ TIDAC [facility] PRN Reason: Protocol Last Admin: 08/11/16 06:23 Dose: 6 units Multivitamins/Minerals/Vitamin C (Tab-A-Vit -) 1 tab PO DAILY [facility] Last Admin: 08/10/16 12:10 Dose: 1 tab Senna (Senna -) 2 tab PO HS PRN PRN Reason: CONSTIPATION A/P 85 year old woman with PMhx of Pancreatic Mass/lesion suspicious for Ca, Billiary obstruction s/p IR drain placement, Hypertension, Hyperlipidemia, DM who presented with N/V with coffee ground emesis and found to have BUN/Cr of 91/ 10. #Acute on Chronic Renal Failure with acidosis and suspected uremia in setting of AMS that required acute hemodialysis no further dialysis planned pt for transfer to hospice spoke with son in law about renal function today and he expressed understanding #Pancreatic Mass with billiary obstruction Oncology following no diagnostic or therapeutic interventions as per family wishes for transfer to hospice today Jean Tejeda DO
[2016-08-11] MEDS: CLOPIDOGREL BISULFATE 75 MG TABLET (FP) PO SCH (10:45)
[2016-08-11] MEDS: MULTIVITAMINS (DAILY MVI) TABLET (FP) PO SCH (10:45)
[2016-08-11] MEDS: amLODIPine BESYLATE 10 MG TABLET (FP) PO SCH (10:45)
[2016-08-11] MEDS: PANTOPRAZOLE SODIUM 100 ML IVPB SCH (10:45)
[2016-08-11] MEDS: DRONABINOL 5 MG CAPSULE PO SCH (10:45)
== END 2016-08-11 13:31 | disposition hospice, inpatient (51) | DRG 377 ==
LOC: JER 16:28 → JERBED 08-02 02:12 → UNDOADMIN 08-02 02:27 → J4W 08-02 03:37 → JERBED 08-02 03:37 → JICU 08-02 11:53 → J7W 08-04 00:25
PROVIDERS: ADMIT Internal Medicine; ATTEND Internal Medicine
PROC: 06HM33Z Insertion of Infusion Device into Right Femoral Vein, Percutaneous Approach (ICD-10-PCS; principal; 2016-08-02)
PROC: B54BZZA Ultrasonography of Right Lower Extremity Veins, Guidance (ICD-10-PCS; 2016-08-02)
PROC: 5A1D60Z (ICD-10-PCS; 2016-08-02)
DX: K92.2 Gastrointestinal hemorrhage, unspecified (principal); N17.0 Acute kidney failure with tubular necrosis; G93.41 Metabolic encephalopathy; C25.9 Malignant neoplasm of pancreas, unspecified; E87.2 Acidosis; R64 Cachexia; Z79.4 Long term (current) use of insulin; E78.5 Hyperlipidemia, unspecified; M81.0 Age-related osteoporosis without current pathological fracture; E11.22 Type 2 diabetes mellitus with diabetic chronic kidney disease; I12.9 Hypertensive chronic kidney disease with stage 1 through stage 4 chronic kidney disease, or unspecified chronic kidney disease; N18.9 Chronic kidney disease, unspecified; D72.829 Elevated white blood cell count, unspecified; E11.649 Type 2 diabetes mellitus with hypoglycemia without coma; D64.9 Anemia, unspecified; K29.60 Other gastritis without bleeding
CPT/HCPCS: 36415; 36600; 70450-TC; 71010-TC; 74176-TC; 76775-TC; 80048; 80053; 81003; 81015; 82436; 82570; 82803; 83036; 83605; 83735; 84100; 84133; 84300; 85025; 85027; 85610; 86704; 86706; 86708; 86803; 86850; 86900; 86901; 87040; 87086; 87186; 87340; 93005; 93010; 97116-GP; 97161-GP; 99285-25; J1644